=== PATIENT | male | born 1940 | race Caucasian/White ===

== ENCOUNTER 2019-11-26 14:05 | Emergency (ER) | payer MEDICARE ==
[2019-11-26] MEDS ORDERED: solu-MEDROL 125 MG IV ONE (14:23)
[2019-11-26] MEDS ORDERED: DUONEB 0.5-3 MG/3 ml Neb IH ONE ×2 (14:25→14:38)
[2019-11-26] MEDS ORDERED: solu-MEDROL 125 MG ONE (14:32)
[2019-11-26 14:37] LABS: Absolute Neutrophil Ct (ANC) 3.89 (1.4-6.9); BASOPHIL % 0.6 % (0.0-0.4); Basophil (Absolute #) 0.03 (0-0.4); Eosinophil % 0.6 % (0.00-5.0); Eosinophil (Absolute #) 0.03 (0-0.5); Hematocrit 31.9 % (42-50); Hemoglobin 9.6 gm/dl (12.5-18.0); Lymphocyte (Absolute #) 0.68 (1.0-4.6); Lymphocytes % 12.7 % (24.0-44.0); Mean Cell Volume 87.9 fl (78-100); Mean Corpuscular Hemoglobin 26.4 pg (26-32); Mean Corpuscular Hgb Concent. 30.1 g/dl (32-36); Mean Platelet Volume 11.2 fl (7.5-11.0); Monocyte (Absolute #) 0.72 (0.0-1.3); Monocytes % 13.5 % (0.0-12.0); Neutrophil % 72.6 % (36.0-66.0); Platelet Count 90 K/mm3 (150-450); Red Blood Count 3.63 M/mm3 (4.1-5.6); Red Cell Distribution Width 14.3 % (11.5-14.0); White Blood Count 5.4 K/mm3 (4.0-10.5)
[2019-11-26 14:52] LABS: ALBUMIN 4.5 g/dL (3.5-5.0); ANION GAP 11.6 MEQ/L (5-15); BILIRUBIN,TOTAL 1.4 mg/dL (0.2-1.3); Calcium 8.8 mg/dL (8.4-10.2); Creatinine 1 1.52 mg/dL (0.66-1.25); MAGNESIUM 1.8 mg/dL (1.6-2.3); Potassium 3.7 mmol/L (3.5-5.1); Total Protein 8.3 g/dL (6.3-8.2)
[2019-11-26 14:59] LABS: INR 2.92 (0.8-3.0); PROTIME 33.7 SECONDS (8.83-12.87)
[2019-11-26 15:01] LABS: PTT 35.7 SECONDS (24.1-36.1)
[2019-11-26 15:41] LABS: Slide Review 1 YES
[2019-11-26] MEDS ORDERED: Lasix 40 MG/4 ML IV ONE (16:02)
[2019-11-26] MEDS ORDERED: Lasix 40 MG/4 ML ONE (16:13)
[2019-11-26 16:14] VITALS: BP 136/69
--- NOTE | 2019-11-26 16:18 | ERPHSYRPT ---
- History of Present Illness Time Seen by Provider: 11/26/19 14:45 Source: patient Exam Limitations: no limitations Patient Subjective Stated Complaint: "im just sob and have been for a few days, I have copd, Triage Nursing Assessment: AAox3, labored resp, c/o shortness of breath, feeling bloated in abdomen. Denies chest pain, states hides soaker is dr Alonso , pt had plastic heart valve in in 1998. H/o copd. Had svn treatments prior to arrival per ems. Physician History: Patient is a 79-year-old male presents to our ED with complaints of progressive shortness of breath over the past several days. No chest pain. Patient admits to history of a "plastic heart valve" implanted in 1998. He also has a history of COPD. Patient states that his shortness of breath may be related to COPD. Receive nebulizer treatment at home. Symptoms improved but not resolved. Patient appears tachypneic and in mild respiratory distress. Patient tachycardic at rest. Timing/Duration: day(s) (Progressive shortness of breath over the past 3 days.) Activities at Onset: activity Severity of Dyspnea-Max: moderate Severity of Dyspnea-Current: moderate Possible Cause: no prior episodes Modifying Factors: Improves With: exertion Associated Symptoms: cough, edema Allergies/Adverse Reactions: No Known Drug Allergies Allergy (Verified 11/26/19 16:44) Home Medications: Cetirizine HCl [Zyrtec] 10 mg PO DAILY 02/15/16 [History] Furosemide 20 mg [Lasix 20 mg] 20 mg PO DAILY 02/15/16 [History] Losartan Potassium [Cozaar] 100 mg PO DAILY 02/15/16 [History] Pravastatin Sodium [Pravachol] 20 mg PO HS 02/15/16 [History] Warfarin Sodium 5 mg [Coumadin 5 MG] 5 mg PO HS 02/15/16 [History] Montelukast Sodium 10 mg [Singulair 10 MG] 10 mg PO DAILY 11/26/19 [History] Hx Tetanus, Diphtheria Vaccination/Date Given: No Hx Influenza Vaccination/Date Given: Yes Hx Pneumococcal Vaccination/Date Given: No - Review of Systems Constitutional: No Fever, No Chills Eyes: No Symptoms Ears, Nose, & Throat: No Symptoms Respiratory: Cough, Dyspnea Cardiac: Edema, No Chest Pain, No Syncope Abdominal/Gastrointestinal: No Symptoms, No Abdominal Pain, No Nausea, No Vomiting, No Diarrhea Genitourinary Symptoms: No Symptoms, No Dysuria Musculoskeletal: No Symptoms, No Back Pain, No Neck Pain Skin: No Symptoms, No Rash Neurological: No Symptoms, No Dizziness, No Focal Weakness, No Sensory Changes Psychological: No Symptoms Endocrine: No Symptoms All Other Systems: Reviewed and Negative - Past Medical History Pertinent Past Medical History: Yes Neurological History: No Pertinent History ENT History: No Pertinent History Cardiac History: Arrhythmia, High Cholesterol, Hypertension, Other Respiratory History: No Pertinent History Endocrine Medical History: No Pertinent History Musculoskeletal History: No Pertinent History GI Medical History: No Pertinent History History: No Pertinent History Psycho-Social History: No Pertinent History Male Reproductive Disorders: No Pertinent History Other Medical History: 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 - Past Surgical History Past Surgical History: Yes Neuro Surgical History: No Pertinent History Cardiac: Valve Replacement Respiratory: No Pertinent History Gastrointestinal: No Pertinent History Genitourinary: No Pertinent History Musculoskeletal: No Pertinent History Male Surgical History: No Pertinent History - Social History Smoking Status: Never smoker Exposure to second hand smoke: No Drug Use: none Patient Lives Alone: Yes - Nursing Vital Signs Nursing Vital Signs: Initial Vital Signs Temperature 98.6 F 11/26/19 14:32 Pulse Rate 118 H 11/26/19 14:32 Respiratory Rate 21 11/26/19 14:32 Blood Pressure 148/94 11/26/19 14:32 O2 Sat by Pulse Oximetry 98 11/26/19 14:32 Pain Scale Pain Intensity 0 - Physical Exam General Appearance: no apparent distress, alert Eye Exam: PERRL/EOMI Neck Exam: normal inspection, supple Respiratory Exam: respiratory distress, diminished breath sounds, accessory muscle use, crackles/rales Cardiovascular/Chest Exam: normal heart sounds, regular rate/rhythm Abdominal/Gastrointestinal Exam: soft, No tenderness, No distention, No mass Extremity Exam: non-tender, normal range of motion, normal inspection, no calf tenderness, No no pedal edema (2+ bilateral lower extremity pitting edema.) Neurologic Exam: alert, oriented x 3, cooperative, principal clerk typist II-XII nml as tested, sensation nml, No motor deficits Skin Exam: normal color, warm, No dry SpO2 Interpretation: normal SpO2: 97 O2 Delivery: Room Air Ordered Tests: Active Orders 24 hr Category Date Time Status Screen Print Operator STAT Care 11/26/19 14:20 Active EKG-ER Only STAT Care 11/26/19 14:19 Active IV Insertion STAT Care 11/26/19 14:19 Active IV Insertion-2nd Peripheral STAT Care 11/26/19 14:39 Active Oxygen-ED Only Nasal Cannula 4 lpm Care 11/26/19 14:19 Active CHEST 1 VIEW (PORTABLE) Stat Exams 11/26/19 14:46 Taken CBC W DIFF Stat Lab 11/26/19 14:31 Completed CMP Stat Lab 11/26/19 14:31 Completed D-DIMER QUANTITATIVE Stat Lab 11/26/19 14:31 Completed MAGNESIUM Stat Lab 11/26/19 14:31 Completed NT PRO BNP Stat Lab 11/26/19 14:31 Completed PROTIME WITH INR Stat Lab 11/26/19 14:31 Completed PTT Stat Lab 11/26/19 14:31 Completed TROPONIN Q3H Lab 11/26/19 14:31 Completed TROPONIN Q3H Lab 11/26/19 17:30 Ordered TROPONIN Q3H Lab 11/26/19 20:30 Ordered TROPONIN Q3H Lab 11/26/19 23:30 Ordered TROPONIN Q3H Lab 11/27/19 02:30 Ordered Peak Expiratory Flow Rate ONCE RT 11/26/19 14:42 Active Respiratory Therapy Assessment ONCE RT 11/26/19 14:42 Active Medication Summary Discontinued Medications Generic Name Dose Route Start Last Admin Trade Name Freq PRN Reason Stop Dose Admin Albuterol/Ipratropium 3 ml 11/26/19 14:25 11/26/19 14:45 Duoneb 0.5-3 Mg/3 Ml Neb IH 11/26/19 14:26 3 ml STAT ONE Administration Albuterol/Ipratropium Confirm 11/26/19 14:38 Duoneb 0.5-3 Mg/3 Ml Neb Administered 11/26/19 14:39 Dose 3 ml IH .STK-MED ONE Furosemide 40 mg 11/26/19 16:02 11/26/19 16:15 Lasix 40 Mg/4 Ml IV 11/26/19 16:03 40 mg STAT ONE Administration Furosemide Confirm 11/26/19 16:13 Lasix 40 Mg/4 Ml Administered 11/26/19 16:14 Dose 40 mg .ROUTE .STK-MED ONE Methylprednisolone Sodium Succinate 125 mg 11/26/19 14:23 11/26/19 14:33 Solu-Medrol 125 Mg IV 11/26/19 14:24 125 mg STAT ONE Administration Methylprednisolone Sodium Succinate Confirm 11/26/19 14:32 Solu-Medrol 125 Mg Administered 11/26/19 14:33 Dose 125 mg .ROUTE .STK-MED ONE Lab/Rad Data: Laboratory Result Diagrams 11/26/19 14:31 11/26/19 14:31 Laboratory Results 11/26/19 11/26/19 11/26/19 Range/Units 14:31 14:31 14:31 WBC (4.0-10.5) K/mm3 RBC (4.1-5.6) M/mm3 Hgb (12.5-18.0) gm/dl Hct (42-50) % MCV (78-100) fl MCH (26-32) pg MCHC (32-36) g/dl RDW (11.5-14.0) % Plt Count (150-450) K/mm3 MPV (7.5-11.0) fl Gran % (36.0-66.0) % Eos # (Auto) (0-0.5) Absolute Lymphs (auto) (1.0-4.6) Absolute Monos (auto) (0.0-1.3) Lymphocytes % (24.0-44.0) % Monocytes % (0.0-12.0) % Eosinophils % (0.00-5.0) % Basophils % (0.0-0.4) % Absolute Granulocytes (1.4-6.9) Basophils # (0-0.4) PT 33.7 H (8.83-12.87) SECONDS INR 2.92 (0.8-3.0) APTT 35.7 (24.1-36.1) SECONDS D-Dimer 312 (215-500) ng/mL Sodium 139 (137-145) mmol/L Potassium 3.7 (3.5-5.1) mmol/L Chloride 101 (98-107) mmol/L Carbon Dioxide 30 (22-30) mmol/L Anion Gap 11.6 (5-15) MEQ/L BUN 17 (9-20) mg/dL Creatinine 1.52 H (0.66-1.25) mg/dL Estimated GFR 47.5 ML/MIN Glucose 138 H (74-106) mg/dL Calcium 8.8 (8.4-10.2) mg/dL Magnesium 1.8 (1.6-2.3) mg/dL Total Bilirubin 1.40 H (0.2-1.3) mg/dL AST 33 (17-59) U/L ALT 17 (0-50) U/L Alkaline Phosphatase 102 (38-126) U/L Troponin I 0.025 (0.000-0.034) ng/mL NT-Pro-B Natriuret Pep 5990 H (0-1800) pg/mL Serum Total Protein 8.3 H (6.3-8.2) g/dL Albumin 4.5 (3.5-5.0) g/dL Slides for Path Review 11/26/19 Range/Units 14:31 WBC 5.4 (4.0-10.5) K/mm3 RBC 3.63 L (4.1-5.6) M/mm3 Hgb 9.6 L (12.5-18.0) gm/dl Hct 31.9 L (42-50) % MCV 87.9 (78-100) fl MCH 26.4 (26-32) pg MCHC 30.1 L (32-36) g/dl RDW 14.3 H (11.5-14.0) % Plt Count 90 L (150-450) K/mm3 MPV 11.2 H (7.5-11.0) fl Gran % 72.6 H (36.0-66.0) % Eos # (Auto) 0.03 (0-0.5) Absolute Lymphs (auto) 0.68 L (1.0-4.6) Absolute Monos (auto) 0.72 (0.0-1.3) Lymphocytes % 12.7 L (24.0-44.0) % Monocytes % 13.5 H (0.0-12.0) % Eosinophils % 0.6 (0.00-5.0) % Basophils % 0.6 (0.0-0.4) % Absolute Granulocytes 3.89 (1.4-6.9) Basophils # 0.03 (0-0.4) PT (8.83-12.87) SECONDS INR (0.8-3.0) APTT (24.1-36.1) SECONDS D-Dimer (215-500) ng/mL Sodium (137-145) mmol/L Potassium (3.5-5.1) mmol/L Chloride (98-107) mmol/L Carbon Dioxide (22-30) mmol/L Anion Gap (5-15) MEQ/L BUN (9-20) mg/dL Creatinine (0.66-1.25) mg/dL Estimated GFR ML/MIN Glucose (74-106) mg/dL Calcium (8.4-10.2) mg/dL Magnesium (1.6-2.3) mg/dL Total Bilirubin (0.2-1.3) mg/dL AST (17-59) U/L ALT (0-50) U/L Alkaline Phosphatase (38-126) U/L Troponin I (0.000-0.034) ng/mL NT-Pro-B Natriuret Pep (0-1800) pg/mL Serum Total Protein (6.3-8.2) g/dL Albumin (3.5-5.0) g/dL Slides for Path Review YES - Progress Progress: improved Air Movement: fair Progress Note: 11/26/19 16:38 Patient reassessed. Tachypnea resolved. Patient has CHF. BNP is 5990. Lasix administered. Case discussed with Dr. Dietz after detailed discussion we decided to transfer patient to higher level of care patient will be transferred to [facility]. Plan of care discussed with patient. He agrees to transfer to [facility] for further evaluation and treatment. Discussed with : Carmelina Will see patient in: other Counseled pt/family regarding: lab results, diagnosis, rad results - Departure Departure Disposition: Transfer Clinical Impression: CHF (congestive heart failure), SOB (shortness of breath), Respiratory distress , Atrial fibrillation Condition: Stable Critical Care Time: Yes Critical Care Time(excluding separately billable procedures): Critical 75-104 mins Referrals: SKYLAR BLEVINS MD [Primary Care Provider] - Instructions: Heart Failure
[2019-11-26 17:03] VITALS: PULSE 92
[2019-11-26 17:14] VITALS: O2SAT 97
--- NOTE | 2019-11-26 21:28 | XRAY ---
Indication: Cough. Short of breath. Comparison: None Portable chest demonstrates cardiomegaly with cardiac valve replacement surgery. Mild vascular prominence without focal infiltrate, consolidation, or large effusion. Bony thorax intact with mild spinal degenerative changes and sternotomy wires. Impression: Cardiomegaly with mild vascular prominence. Negative for acute pneumonic process or CHF.
== END 2019-11-26 17:21 | disposition short-term general hospital (02) ==
LOC: ED 14:05
DX: I50.9 Heart failure, unspecified (principal); R06.02 Shortness of breath; R06.00 Dyspnea, unspecified; I48.91 Unspecified atrial fibrillation; Z79.01 Long term (current) use of anticoagulants; I10 Essential (primary) hypertension; J44.9 Chronic obstructive pulmonary disease, unspecified; E78.00 Pure hypercholesterolemia, unspecified; Z79.899 Other long term (current) drug therapy
CPT/HCPCS: 36000; 36415; 71045; 80053; 83735; 83880; 84484; 85025; 85379; 85610; 85730; 93005; 93041; 94150; 94640; 96374; 96375; 99285; 99291; 99292; J1940; J2930; A9270-GY

== ENCOUNTER 2020-07-16 09:55 | Inpatient (IN) | payer MEDICARE ==
--- NOTE | 2020-07-16 10:41 | PCM.HP.ADD ---
Addendum to History & Physical - History & Physical Addendum Addendum to History & Physical: This certifies that the History & Physical in the electronic chart reflects the current health status of the patient. If there are changes in the H&P these changes/exceptions are listed as follows.
--- NOTE | 2020-07-16 11:33 | XRAY ---
Indication: Cough. CHF. Comparison: March 16, 2020. PA/lateral chest again hyperinflated without focal infiltrate, consolidation, or large effusion. Heart remains enlarged again with mitral valve replacement surgery. Bony thorax intact again with mild degenerative changes. No new/acute findings. Impression: Continued nonacute chest with chronic features.
[2020-07-16 11:35] LABS: Hematocrit 27.5 % (42-50); Mean Cell Volume 78.6 fl (78-100); Mean Corpuscular Hemoglobin 22.9 pg (26-32); Mean Corpuscular Hgb Concent. 29.1 g/dl (32-36); Mean Platelet Volume 10.8 fl (7.5-11.0); Platelet Count 138 K/mm3 (150-450); Red Cell Distribution Width 18.3 % (11.5-14.0); White Blood Count 7.2 K/mm3 (4.0-10.5)
[2020-07-16 11:56] LABS: ANION GAP 11.3 MEQ/L (5-15); Creatinine 1 1.96 mg/dL (0.66-1.25); EST GLOMERULAR FILTRATION RATE 35.3 ML/MIN; Potassium 4.8 mmol/L (3.5-5.1); TROPONIN 0.016 ng/mL (0.000-0.034)
[2020-07-16] MEDS: BUMEX 1 MG IV SCH ×2 (12:25→17:27)
[2020-07-16] MEDS: Toprol Xl 50 MG PO SCH (12:25)
[2020-07-16] MEDS: Cozaar 50 MG PO SCH (12:25)
[2020-07-16] MEDS ORDERED: DUONEB 0.5-3 MG/3 ml Neb IH ONE (14:05)
--- NOTE | 2020-07-16 14:05 | CONS ---
CONSULT DATE: 07/16/2020 HISTORY: This is a 80 year old male with known history of mitral valve replacement from 1998 who was seen because of shortness of breath. The patient has been chronically short of breath and had been admitted to [facility] some time in November for the same problem. The symptoms seems to be worse over the last few days associated with productive cough and states that he has occasional low grade fever. He denies any chest pains. He also complained of peripheral edema. The patient is known to have mitral valve replacement utilizing a [employer] which was done in 1998. He has underlying atrial fibrillation which is permanent and is fairly anticoagulated with warfarin. He has never had any myocardial infarction. He has had history of congestive heart failure in the past. He has an underlying left ventricular systolic dysfunction. CARDIAC RISK FACTORS: Negative for diabetes. Positive for hypertension. No known hyperlipidemia. He has a remote history of smoking. MEDICATIONS: His medications include Symbicort, Bumex, losartan, metoprolol, Pravastatin, Coumadin. REVIEW OF SYSTEMS: HARDWOOD FLOOR REFINISHER: No history of stroke or seizures. RESPIRATORY: He has chronic obstructive lung disease with history of exacerbation. GI: Nausea. No vomiting. He has no abdominal pain. : History of renal failure. PERIPHERAL VASCULAR: No history of DVT or claudication. He has intermittent peripheral edema. HEMATOLOGY: No history of bleeding. ENDOCRINE: No thyroid disorder. SOCIAL HISTORY: He is . He is regularly checked up by his ex-. PHYSICAL EXAMINATION: Blood pressure 140/70 with heart rate 80, respirations about 20. GENERAL: The patient is an elderly male who is alert, oriented, who gets short of breath even with just plain conversation and has audible wheezing. NECK: No obvious JVD. CHEST: There is scattered wheezing on both lung perkins. There is a well healed sternotomy scar. CARDIAC: Heart tones are variable. The rhythm is atrial fibrillation with audible mitral prosthetic click. ABDOMEN: Soft with normal bowel sounds. EXTREMITIES: There is bilateral leg edema. ASSESSMENT AND PLAN: 1) The shortness of breath is probably multi-factorial. I suspect it is a combination of chronic obstructive pulmonary disease and also some acute on chronic systolic heart failure. I agree with IV diuretics as he appears to be volume overloaded with signs of peripheral edema. Continue with beta blockers. 2) Chronic atrial fibrillation. Goal of treatment is heart rate control and anticoagulation. 3) Hypertension. 4) Chronic obstructive lung disease.
[2020-07-16] MEDS: DUONEB 0.5-3 MG/3 ml Neb IH SCH ×3 (14:12→23:25)
[2020-07-16] MEDS: PATIENT OWN MEDICATION IH SCH (14:15)
[2020-07-16] MEDS: ZOCOR 20MG PO SCH (21:06)
[2020-07-16] MEDS: Tessalon Perles 100 MG PO PRN (21:13)
[2020-07-16] MEDS ORDERED: NON-FORMULARY ITEM (Pravastatin Sodium [Pravachol] 20 MG) PO SCH (22:00)
[2020-07-16] MEDS ORDERED: NON-FORMULARY ITEM (Budesonide/Formoterol Fumarate [Symbicort 160-4.5 Mcg Inhaler] 2 PUFFS IH SCH (22:00)
[2020-07-17] MEDS: DUONEB 0.5-3 MG/3 ml Neb IH SCH ×6 (02:43→23:22)
[2020-07-17] MEDS: Tessalon Perles 100 MG PO PRN ×2 (03:03→22:21)
[2020-07-17] MEDS: BUMEX 1 MG IV SCH ×2 (03:04→17:01)
[2020-07-17 06:06] LABS: PROTIME 95.1 SECONDS (8.83-12.87)
[2020-07-17 06:08] LABS: INR 8.35 (0.8-3.0)
[2020-07-17] MEDS: PATIENT OWN MEDICATION IH SCH ×2 (06:52→19:38)
[2020-07-17] MEDS: Toprol Xl 50 MG PO SCH (09:17)
[2020-07-17] MEDS: Cozaar 50 MG PO SCH (09:17)
[2020-07-17] MEDS ORDERED: NON-FORMULARY ITEM (Losartan Potassium [Cozaar] 100 MG) PO SCH (10:00)
[2020-07-17] MEDS: ZOCOR 20MG PO SCH (22:19)
--- NOTE | 2020-07-17 22:19 | PCM.NOTE ---
Date and Time: 07/17/202216 Subjective Assessment: still very short of breath. has off and on cough - Review of Systems Constitutional: No Fever, No Chills Eyes: No Symptoms Ears, Nose, & Throat: No Symptoms Respiratory: Cough, Orthopnea, Short Of Breath Cardiac: Orthopnea, PND, No Chest Pain, No Edema, No Syncope Abdominal/Gastrointestinal: No Abdominal Pain, No Nausea, No Vomiting, No Tawana rrhea Genitourinary Symptoms: No Dysuria Musculoskeletal: No Back Pain, No Neck Pain Skin: No Rash Neurological: No Dizziness, No Focal Weakness, No Sensory Changes Psychological: No Symptoms Endocrine: No Symptoms Hematologic/Lymphatic: No Symptoms Immunological/Allergic: No Symptoms Objective Exam General Appearance: mild distress, alert Neurologic Exam: alert, oriented x 3, cooperative, normal mood/affect, sensation nml, No motor deficits Skin Exam: normal color, warm, dry Eye Exam: PERRL, EOMI, eyes nml inspection Ears, Nose, Throat Exam: normal ENT inspection, pharynx normal, moist mucous membranes Neck Exam: normal inspection, non-tender, supple, full range of motion Respiratory Exam: rhonchi, No respiratory distress Cardiovascular Exam: regular rate/rhythm, normal heart sounds Gastrointestinal/Abdomen Exam: soft, No tenderness, No mass Extremity Exam: normal inspection, normal range of motion Back Exam: normal inspection, normal range of motion, No CVA tenderness, No vertebral tenderness Male Genitalia Exam: deferred Rectal Exam: deferred OBJECTIVE DATA Vital Signs: Vital Signs - 24 hr Temp Pulse Resp BP Pulse Ox 07/17/20 19:37 97.9 F 75 21 116/58 97 07/17/20 19:32 80 22 92 L 07/17/20 15:37 98.2 F 72 20 126/62 97 07/17/20 15:08 78 28 H 92 L 07/17/20 12:00 98.6 F 75 18 120/59 96 07/17/20 10:37 78 26 H 95 07/17/20 06:59 98.9 F 76 18 130/60 93 L 07/17/20 06:55 72 22 93 L 07/17/20 03:52 98.6 F 72 20 113/58 94 L 07/17/20 02:43 72 20 94 L 07/16/20 23:39 98.4 F 95 H 18 121/67 95 07/16/20 23:33 98 07/16/20 23:27 73 20 94 L Pain Assessment - Last Documented Pain Intensity 0 Intake and Output: Intake & Output 07/15/20 07/16/20 07/17/20 07/18/20 11:59 11:59 11:59 11:59 Intake Total 1440 720 Output Total 2125 1650 Balance -685 -930 Weight 104 kg 102.6 kg Lab Results: Lab Results-Last 24 Hours 07/17/20 Range/Units 05:02 PT 95.1 H (8.83-12.87) SECONDS INR 8.35 H* (0.8-3.0) Radiology Exams: Radiology Procedures Category Date Time Status CHEST 2 VIEWS (PA AND LAT) Stat Exams 07/16/20 10:36 Completed ECHO W/2D AND DOPPLER [US] Routine Exams 07/16/20 10:34 Taken Assessment/Plan (1) CHF (congestive heart failure) Current Visit: Yes Status: Acute Qualifiers: Heart failure type: combined systolic and diastolic Heart failure chronicity: acute on chronic Qualified Code(s): I50.43 - Acute on chronic combined systolic (congestive) and diastolic (congestive) heart failure Assessment & Plan: Chief Complaint Diagnosis CHF, Renal Insufficiency Allergies Allergy/AdvReac Type Severity Reaction Status Date / Time No Known Drug Allergies Allergy Verified 11/26/19 16:44 Vital Signs (Last 24 hours) Temp Pulse Resp BP Pulse Ox 07/17/20 19:37 97.9 F 75 21 116/58 97 07/17/20 19:32 80 22 92 L 07/17/20 15:37 98.2 F 72 20 126/62 97 07/17/20 15:08 78 28 H 92 L 07/17/20 12:00 98.6 F 75 18 120/59 96 07/17/20 10:37 78 26 H 95 07/17/20 06:59 98.9 F 76 18 130/60 93 L 07/17/20 06:55 72 22 93 L 07/17/20 03:52 98.6 F 72 20 113/58 94 L 07/17/20 02:43 72 20 94 L 07/16/20 23:39 98.4 F 95 H 18 121/67 95 07/16/20 23:33 98 07/16/20 23:27 73 20 94 L Home Medications Medication Instructions Recorded Confirmed Last Taken Type Budesonide/Formoterol Fumarate 2 puffs IH BID 07/16/20 07/16/20 07/16/20 08:00 History [Symbicort 160-4.5 Mcg Inhaler] Bumetanide 0.5 mg PO DAILY 07/16/20 07/16/20 07/15/20 08:00 History Current Medications Generic Name Dose Route Start Last Admin Trade Name Freq PRN Reason Stop Dose Admin Albuterol/Ipratropium 3 ml 07/16/20 15:00 07/17/20 19:32 Duoneb 0.5-3 Mg/3 Ml Neb IH 08/15/20 14:59 3 ml Q4HRT TREVOR Administration Benzonatate 100 mg 07/16/20 21:11 07/17/20 03:03 Tessalon Perles 100 Mg PO 08/15/20 21:10 100 mg Q4H PRN PRN Administration COUGH Bumetanide 1 mg 07/16/20 11:00 07/17/20 17:01 Bumex 1 Mg IV 08/15/20 10:59 1 mg BID DIURETIC TREVOR Administration Losartan Potassium 100 mg 07/16/20 11:45 07/17/20 09:17 Cozaar 50 Mg PO 08/15/20 11:44 100 mg DAILY TREVOR Administration Metoprolol Succinate 50 mg 07/16/20 11:45 07/17/20 09:17 Toprol Xl 50 Mg PO 08/15/20 11:44 50 mg DAILY TREVOR Administration Patient Own Med ( 0 each 07/16/20 19:00 07/17/20 19:38 Symbicort) IH 08/15/20 18:59 2 each BIDRT TREVOR Administration Simvastatin 20 mg 07/16/20 22:00 07/16/20 21:06 Zocor 20mg PO 08/15/20 21:59 20 mg HS TREVOR Administration Discontinued Medications Generic Name Dose Route Start Last Admin Trade Name Freq PRN Reason Stop Dose Admin Albuterol/Ipratropium Confirm 07/16/20 14:05 Duoneb 0.5-3 Mg/3 Ml Neb Administered 07/16/20 14:06 Dose 3 ml IH .STK-MED ONE Intake & Output (Last 24 hours) 07/15/20 07/16/20 07/17/20 07/18/20 11:59 11:59 11:59 11:59 Intake Total 7220 353 Output Total 7317 1912 Balance -685 -930 Weight 104 kg 102.6 kg Laboratory Results (Last 24 hours) 07/17/20 05:02 PT 95.1 H INR 8.35 H* Orders (Last 24 hours) Category Date Time Status PT INR [PROTIME WITH INR] Routine Lab 07/17/20 05:02 Completed Simvastatin 20Mg [Zocor 20Mg] Med 07/16/20 22:00 Active 20 mg PO HS Peak Expiratory Flow Rate ONCE RT 07/17/20 07:00 Active Patient Care Notes (Last 24 hours) 07/17/20 09:38 Nursing Note by Melody Enriquez Pt complaining of his lower legs and feet itching x 3weeks. This nurse applied lotion on right leg and protective ointment left. Plan to see which works best to alleviate itching and continue with it. Pt denies any burning or pain after application. Will continue to monitor for effectiveness. Initialized on 07/17/20 09:38 - END OF NOTE 07/17/20 06:41 Nursing Note by Brittany Bedoya Dr. notified of INR level. Coumadin on hold. Addendum entered by Brittany Bedoya RN 07/17/20 06:44: Dr. Castro also notified of 1000 dose of Bumex given early at 0310 due to SOB. No New orders. Initialized on 07/17/20 06:41 - END OF NOTE 07/17/20 06:11 Nursing Note by Brittany Bedoya Pt has a critical INR this a.mJoe Borrero RN has attempted to call Dr. Castro on all of his available phone numbers twice and has left one voice message. Initialized on 07/17/20 06:11 - END OF NOTE 07/17/20 05:00 (created 07/17/20 06:48) Nursing Note by Brittany Bedoya Pt resting in bed, breathing much easier at this time. 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 Pt has been coughing and had gotten up to use the urinal when his SOB increased. Pt was given a breathing treatment without much relief. This nurse gave patient a tessalon perles 100mg for cough and gave IV Bumex 1mg that was scheduled for 1000 early at this time. Initialized on 07/17/20 06:45 - END OF NOTE Code(s): I50.9 - HEART FAILURE, UNSPECIFIED (2) Atrial fibrillation Current Visit: Yes Status: Chronic Qualifiers: Atrial fibrillation type: paroxysmal Qualified Code(s): I48.0 - Paroxysmal atrial fibrillation Code(s): I48.91 - UNSPECIFIED ATRIAL FIBRILLATION (3) Hypertension Current Visit: No Status: Acute Qualifiers: Hypertension type: essential hypertension Qualified Code(s): I10 - Essential (primary) hypertension Code(s): I10 - ESSENTIAL (PRIMARY) HYPERTENSION (4) Warfarin anticoagulation Current Visit: No Status: Acute Code(s): Z79.01 - CUSTODIAL (CURRENT) USE OF ANTICOAGULANTS
[2020-07-18] MEDS: DUONEB 0.5-3 MG/3 ml Neb IH SCH ×6 (02:30→22:36)
[2020-07-18] MEDS: PATIENT OWN MEDICATION IH SCH ×2 (06:27→18:37)
[2020-07-18] MEDS: BUMEX 1 MG IV SCH ×2 (09:05→16:36)
[2020-07-18] MEDS: Toprol Xl 50 MG PO SCH (09:05)
[2020-07-18] MEDS: Cozaar 50 MG PO SCH (09:05)
[2020-07-18 09:13] LABS: INR 4.6 (0.8-3.0); PROTIME 52.8 SECONDS (8.83-12.87)
--- NOTE | 2020-07-18 10:13 | ECHO ---
Transthoracic echocardiographic examination and color Doppler was done on 07/16/2020. INDICATION: Congestive heart failure, status post previous mitral valve replacement. IMPRESSION: 1) GLOBAL LEFT VENTRICULAR HYPOKINESIA. EJECTION FRACTION BETWEEN 30-35%. 2) MODERATE TO SEVERE TRICUSPID REGURGITATION. RIGHT VENTRICULAR SYSTOLIC PRESSURE OF 73 MM OF MERCURY SUGGESTIVE OF MODERATE TO SEVERE PULMONARY HYPERTENSION. 3) PROSTHETIC MITRAL VALVE. 4) MODERATE TO SEVERELY DILATED RIGHT SIDE CHAMBERS. 5) LEFT ATRIAL ENLARGEMENT. 6) DILATED INFERIOR VENA CAVA. The left ventricle is partially visualized but demonstrated a global type of hypokinesia with left ventricular ejection fraction of about 30-35%. The left ventricular thickness appears to be normal. The mitral valve is prosthetic but this is not well visualized. There is no significant regurgitation seen. The left atrium is moderately enlarged. The aortic valve is sclerotic with no aortic regurgitation seen. There is no significant gradient across the left ventricular outflow tract. The right side chambers are moderately to severely dilated. There is moderate to severe tricuspid regurgitation with right ventricular systolic pressure of 73 mm of Mercury suggestive of moderate to severe pulmonary hypertension. The inferior vena cava is dilated.
--- NOTE | 2020-07-18 11:43 | PCM.NOTE ---
Date and Time: 07/18/20 1143 Subjective Assessment: doing better. - Review of Systems Constitutional: No Fever, No Chills Eyes: No Symptoms Ears, Nose, & Throat: No Symptoms Respiratory: No Cough, No Short Of Breath Cardiac: No Chest Pain, No Edema, No Syncope Abdominal/Gastrointestinal: No Abdominal Pain, No Nausea, No Vomiting, No Diarrhea Genitourinary Symptoms: No Dysuria Musculoskeletal: No Back Pain, No Neck Pain Skin: No Rash Neurological: No Dizziness, No Focal Weakness, No Sensory Changes Psychological: No Symptoms Endocrine: No Symptoms Hematologic/Lymphatic: No Symptoms Immunological/Allergic: No Symptoms Objective Exam General Appearance: no apparent distress, alert Neurologic Exam: alert, oriented x 3, cooperative, normal mood/affect, nml cerebellar function, sensation nml, No motor deficits Skin Exam: normal color, warm, dry Eye Exam: PERRL, EOMI, eyes nml inspection Ears, Nose, Throat Exam: normal ENT inspection, pharynx normal, moist mucous membranes Neck Exam: normal inspection, non-tender, supple, full range of motion Respiratory Exam: normal breath sounds, lungs clear, No respiratory distress Cardiovascular Exam: regular rate/rhythm, normal heart sounds Gastrointestinal/Abdomen Exam: soft, No tenderness, No mass Extremity Exam: normal inspection, normal range of motion Back Exam: normal inspection, normal range of motion, No CVA tenderness, No vertebral tenderness Male Genitalia Exam: deferred Rectal Exam: deferred OBJECTIVE DATA Vital Signs: Vital Signs - 24 hr Temp Pulse Resp BP Pulse Ox 07/18/20 11:36 97.8 F 72 24 106/51 94 L 07/18/20 10:19 89 22 91 L 07/18/20 07:07 98.2 F 89 22 123/55 91 L 07/18/20 06:30 79 24 92 L 07/18/20 03:51 98.2 F 98 H 22 110/69 94 L 07/18/20 02:30 88 20 92 L 07/17/20 23:49 98.1 F 71 20 115/53 94 L 07/17/20 23:22 71 20 94 L 07/17/20 19:37 97.9 F 75 21 116/58 97 07/17/20 19:32 80 22 92 L 07/17/20 15:37 98.2 F 72 20 126/62 97 07/17/20 15:08 78 28 H 92 L 07/17/20 12:00 98.6 F 75 18 120/59 96 Pain Assessment - Last Documented Pain Intensity 0 Intake and Output: Intake & Output 07/15/20 07/16/20 07/17/20 07/18/20 11:59 11:59 11:59 11:59 Intake Total 1440 2020 Output Total 2125 2350 Balance -685 -330 Weight 104 kg 102.6 kg 101.9 kg Lab Results: Lab Results-Last 24 Hours 07/18/20 Range/Units 08:57 PT 52.8 H (8.83-12.87) SECONDS INR 4.60 H D (0.8-3.0) Multi-Disciplinary Progress Notes: Multi-Disciplinary Progress Notes 07/18/20 09:51 Case Management Note by Anca Flores PATIENT CONTINUES TO DENY ANY NEEDS REGARDING DC AT THIS TIME. HE CONTINUES TO PLAN TO RETURN HOME TO PRIOR LEVEL OF FUNCTIONING Initialized on 07/18/20 09:51 - END OF NOTE Assessment/Plan (1) CHF (congestive heart failure) Current Visit: Yes Status: Acute Qualifiers: Heart failure type: combined systolic and diastolic Heart failure chronicity: acute on chronic Qualified Code(s): I50.43 - Acute on chronic combined systolic (congestive) and diastolic (congestive) heart failure Code(s): I50.9 - HEART FAILURE, UNSPECIFIED (2) Atrial fibrillation Current Visit: Yes Status: Chronic Qualifiers: Atrial fibrillation type: paroxysmal Qualified Code(s): I48.0 - Paroxysmal atrial fibrillation Code(s): I48.91 - UNSPECIFIED ATRIAL FIBRILLATION (3) Hypertension Current Visit: No Status: Acute Qualifiers: Hypertension type: essential hypertension Qualified Code(s): I10 - Essential (primary) hypertension Code(s): I10 - ESSENTIAL (PRIMARY) HYPERTENSION (4) Warfarin anticoagulation Current Visit: No Status: Acute Code(s): Z79.01 - SENIOR LIVING (CURRENT) USE OF ANTICOAGULANTS
[2020-07-18] MEDS: ZOCOR 20MG PO SCH (21:38)
[2020-07-19] MEDS: DUONEB 0.5-3 MG/3 ml Neb IH SCH ×3 (02:35→11:18)
[2020-07-19] MEDS: PATIENT OWN MEDICATION IH SCH (06:24)
[2020-07-19 09:09] LABS: INR 3.06 (0.8-3.0)
[2020-07-19] MEDS: Cozaar 50 MG PO SCH (10:17)
[2020-07-19] MEDS: Toprol Xl 50 MG PO SCH (10:17)
[2020-07-19] MEDS: BUMEX 1 MG IV SCH (10:17)
--- NOTE | 2020-07-19 11:50 | PCM.DS ---
Discharge Summary Date of Admission: 07/16/20 13:48 Admitting Physician: SKYLAR BLEVINS Consults: Consults on Case 07/16/20 10:34 Nutritional Consult ROUTINE 07/16/20 10:37 Consult Cardiology ROUTINE Primary Care Provider: SKYLAR BLEVINS Allergies Allergies No Known Drug Allergies Allergy (Verified 11/26/19 16:44) Hospital Summary - Hospital Course Hospital Course: Chief Complaint Diagnosis CHF, Renal Insufficiency, EXAC COPD Allergies Allergy/AdvReac Type Severity Reaction Status Date / Time No Known Drug Allergies Allergy Verified 11/26/19 16:44 Vital Signs (Last 24 hours) Temp Pulse Resp BP Pulse Ox 07/19/20 11:19 72 20 90 L 07/19/20 07:43 98.6 F 69 22 108/56 92 L 07/19/20 06:19 88 20 93 L 07/19/20 03:36 98.1 F 84 21 107/57 98 07/19/20 02:39 92 H 24 97 07/19/20 00:00 98.4 F 69 20 130/69 94 L 07/18/20 22:40 69 20 94 L 07/18/20 19:48 98.3 F 80 24 116/67 96 07/18/20 18:38 80 24 96 07/18/20 16:00 98.3 F 76 26 H 112/59 92 L 07/18/20 14:30 85 26 H 94 L Home Medications Medication Instructions Recorded Confirmed Last Taken Type Budesonide/Formoterol Fumarate 2 puffs IH BID 07/16/20 07/16/20 07/16/20 08:00 History [Symbicort 160-4.5 Mcg Inhaler] Bumetanide 0.5 mg PO DAILY 07/16/20 07/16/20 07/15/20 08:00 History Current Medications Generic Name Dose Route Start Last Admin Trade Name Freq PRN Reason Stop Dose Admin Albuterol/Ipratropium 3 ml 07/16/20 15:00 07/19/20 11:18 Duoneb 0.5-3 Mg/3 Ml Neb IH 08/15/20 14:59 3 ml Q4HRT TREVOR Administration Benzonatate 100 mg 07/16/20 21:11 07/17/20 22:21 Tessalon Perles 100 Mg PO 08/15/20 21:10 100 mg Q4H PRN PRN Administration COUGH Bumetanide 1 mg 07/16/20 11:00 07/19/20 10:17 Bumex 1 Mg IV 08/15/20 10:59 1 mg BID DIURETIC TREVOR Administration Losartan Potassium 100 mg 07/16/20 11:45 07/19/20 10:17 Cozaar 50 Mg PO 08/15/20 11:44 100 mg DAILY TREVOR Administration Metoprolol Succinate 50 mg 07/16/20 11:45 07/19/20 10:17 Toprol Xl 50 Mg PO 08/15/20 11:44 50 mg DAILY TREVOR Administration Patient Own Med ( 0 each 07/16/20 19:00 07/19/20 06:24 Symbicort) IH 08/15/20 18:59 2 each BIDRT TREVOR Administration Simvastatin 20 mg 07/16/20 22:00 07/18/20 21:38 Zocor 20mg PO 08/15/20 21:59 20 mg HS TREVOR Administration Discontinued Medications Generic Name Dose Route Start Last Admin Trade Name Freq PRN Reason Stop Dose Admin Albuterol/Ipratropium Confirm 07/16/20 14:05 Duoneb 0.5-3 Mg/3 Ml Neb Administered 07/16/20 14:06 Dose 3 ml IH .STK-MED ONE Intake & Output (Last 24 hours) 07/16/20 07/17/20 07/18/20 07/19/20 11:59 11:59 11:59 11:59 Intake Total 1440 2020 2100 Output Total 2127 2350 3450 Balance -237 -330 1351 Weight 104 kg 102.6 kg 101.9 kg 102.6 kg Microbiology Results (Last 24 hours) 07/18/20 20:30 Sputum - Expectorant Gram Stain - Pending 07/18/20 20:30 Sputum - Expectorant Sputum Culture - Pending Laboratory Results (Last 24 hours) 07/19/20 08:30 PT 35.0 H INR 3.06 H D Orders (Last 24 hours) Category Date Time Status PT INR [PROTIME WITH INR] Urgent Lab 07/19/20 08:30 Completed Sputum Culture [CULTURE,SPUTUM] Routine Lab 07/18/20 20:30 Received RT Miscellaneous Order ROUTINE RT 07/19/20 11:38 Active Patient Care Notes (Last 24 hours) 07/19/20 11:39 Case Management Note by Anca Flores DR. NOTIFIED PATIENT QUALIFIED FOR HOME OXYGEN AT HS- OVERNIGHT PULSE OX REPORT ON CHART FOR HIM TO VIEW WELL WHEN HE COMES TO SEE PATIENT. HE WOULD PATIENT TO START ON 2L/NC AT HAS AND TO ALSO HAVE AN OUTPT HOME SLEEP STUDY. ORDER ENTERED- WILL SEND OXYGEN ORDER ONCE SIGNED TO [facility] [place] Initialized on 07/19/20 11:39 - END OF NOTE 07/19/20 11:36 Case Management Note by Anca Flores PATIENT CONTINUES TO DENY ANY ADDITIONAL NEEDS REGARDING DC. HE PLANS TO RETURN HOME TO PRIOR LEVEL OF FUNCTIONING. HE WAS EDUCATED THAT HE MAY NEED HOME OXYGEN WHEN HE SLEEPS. HE VERIFIED UNDERSTANDING AND STATED [facility] [place] WAS OKAY TO USE. Initialized on 07/19/20 11:36 - END OF NOTE - Vitals & Intake/Output Vital Signs: Vital Signs Temperature 98.6 F 07/19/20 07:43 Pulse Rate 72 07/19/20 11:19 Respiratory Rate 20 07/19/20 11:19 Blood Pressure 108/56 07/19/20 07:43 O2 Sat by Pulse Oximetry 90 L 07/19/20 11:19 Intake & Output: Intake & Output 07/16/20 07/17/20 07/18/20 07/19/20 11:59 11:59 11:59 11:59 Intake Total 1440 2020 2100 Output Total 2125 2350 3450 Balance -495 330 1350 Weight 104 kg 102.6 kg 101.9 kg 102.6 kg - Lab Result Diagrams: 07/16/20 10:34 07/16/20 10:34 Lab Results-Last 24 Hrs: Lab Results-Last 24 Hours 07/19/20 Range/Units 08:30 PT 35.0 H (8.83-12.87) SECONDS INR 3.06 H D (0.8-3.0) - Procedures and Test Procedures and Tests throughout Hospitalization: Therapy Orders & Screens 07/16/20 10:34 EKG STAT Comment: Diagnosis: CHF Oxygen NASAL CANNULA 2 lpm Comment: Diagnosis: CHF 07/16/20 11:04 RT Screen per Nursing Assess ONCE Comment: Protocol Order Physician Instructions: Greater than 3 points order RT Admission Screen Reason For Exam: Triggered on Admission Diagnosis: CHF Diagnosis: CHF Pneumonia: No Home O2: No Asthma: No CHF: Yes Home CPAP/BIPAP: No Home Nebs/MDI: Yes Total Points: 8 07/16/20 11:14 Respiratory Therapy Assessment DAILY Comment: Diagnosis: CHF 07/16/20 14:48 Respiratory MDI UD Comment: Diagnosis: CHF, Renal Insufficiency 07/17/20 07:00 Peak Expiratory Flow Rate ONCE Comment: Reason For Exam: Diagnosis: CHF, Renal Insufficiency 07/19/20 11:38 RT Miscellaneous Order ROUTINE Comment: Physician Instructions: Reason For Exam: ARRANGE FOR OTPT HOME SLEEP STUDY AFTER DC HOME Diagnosis: CHF, Renal Insufficiency, EXAC COPD Discharge Exam General Appearance: no apparent distress, alert Neurologic Exam: alert, oriented x 3, cooperative, normal mood/affect, nml cerebellar function, sensation nml, No motor deficits Eye Exam: PERRL, EOMI, eyes nml inspection Ears, Nose, Throat Exam: normal ENT inspection, pharynx normal, moist mucous membranes Neck Exam: normal inspection, non-tender, supple, full range of motion Respiratory Exam: normal breath sounds, lungs clear, No respiratory distress Cardiovascular Exam: regular rate/rhythm, normal heart sounds Gastrointestinal/Abdomen Exam: soft, No tenderness, No mass Male Genitalia Exam: deferred Rectal Exam: deferred Back Exam: normal inspection, normal range of motion, No CVA tenderness, No vertebral tenderness Extremity Exam: normal inspection, normal range of motion Skin Exam: normal color, warm, dry Final Diagnosis/Problem List - Final Discharge Diagnosis/Problem (1) CHF (congestive heart failure) Current Visit: Yes Status: Acute Assessment & Plan: Chief Complaint Diagnosis CHF, Renal Insufficiency, EXAC COPD Allergies Allergy/AdvReac Type Severity Reaction Status Date / Time No Known Drug Allergies Allergy Verified 11/26/19 16:44 Vital Signs (Last 24 hours) Temp Pulse Resp BP Pulse Ox 07/19/20 11:19 72 20 90 L 07/19/20 07:43 98.6 F 69 22 108/56 92 L 07/19/20 06:19 88 20 93 L 07/19/20 03:36 98.1 F 84 21 107/57 98 07/19/20 02:39 92 H 24 97 07/19/20 00:00 98.4 F 69 20 130/69 94 L 07/18/20 22:40 69 20 94 L 07/18/20 19:48 98.3 F 80 24 116/67 96 07/18/20 18:38 80 24 96 07/18/20 16:00 98.3 F 76 26 H 112/59 92 L 07/18/20 14:30 85 26 H 94 L Home Medications Medication Instructions Recorded Confirmed Last Taken Type Budesonide/Formoterol Fumarate 2 puffs IH BID 07/16/20 07/16/20 07/16/20 08:00 History [Symbicort 160-4.5 Mcg Inhaler] Bumetanide 0.5 mg PO DAILY 07/16/20 07/16/20 07/15/20 08:00 History Current Medications Generic Name Dose Route Start Last Admin Trade Name Freq PRN Reason Stop Dose Admin Albuterol/Ipratropium 3 ml 07/16/20 15:00 07/19/20 11:18 Duoneb 0.5-3 Mg/3 Ml Neb IH 08/15/20 14:59 3 ml Q4HRT TREVOR Administration Benzonatate 100 mg 07/16/20 21:11 07/17/20 22:21 Tessalon Perles 100 Mg PO 08/15/20 21:10 100 mg Q4H PRN PRN Administration COUGH Bumetanide 1 mg 07/16/20 11:00 07/19/20 10:17 Bumex 1 Mg IV 08/15/20 10:59 1 mg BID DIURETIC TREVOR Administration Losartan Potassium 100 mg 07/16/20 11:45 07/19/20 10:17 Cozaar 50 Mg PO 08/15/20 11:44 100 mg DAILY TREVOR Administration Metoprolol Succinate 50 mg 07/16/20 11:45 07/19/20 10:17 Toprol Xl 50 Mg PO 08/15/20 11:44 50 mg DAILY TREVOR Administration Patient Own Med ( 0 each 07/16/20 19:00 07/19/20 06:24 Symbicort) 08/15/20 18:59 2 each BIDRT TREVOR Administration Simvastatin 20 mg 07/16/20 22:00 07/18/20 21:38 Zocor 20mg PO 08/15/20 21:59 20 mg HS TREVOR Administration Discontinued Medications Generic Name Dose Route Start Last Admin Trade Name Freq PRN Reason Stop Dose Admin Albuterol/Ipratropium Confirm 07/16/20 14:05 Duoneb 0.5-3 Mg/3 Ml Neb Administered 07/16/20 14:06 Dose 3 ml IH .STK-MED ONE Intake & Output (Last 24 hours) 07/16/20 07/17/20 07/18/20 07/19/20 11:59 11:59 11:59 11:59 Intake Total 1440 2019 2100 Output Total 2127 6790 3450 Balance -810 -161 -1454 Weight 104 kg 102.6 kg 101.9 kg 102.6 kg Microbiology Results (Last 24 hours) 07/18/20 20:30 Sputum - Expectorant Gram Stain - Pending 07/18/20 20:30 Sputum - Expectorant Sputum Culture - Pending Laboratory Results (Last 24 hours) 07/19/20 08:30 PT 35.0 H INR 3.06 H D Orders (Last 24 hours) Category Date Time Status PT INR [PROTIME WITH INR] Urgent Lab 07/19/20 08:30 Completed Sputum Culture [CULTURE,SPUTUM] Routine Lab 07/18/20 20:30 Received RT Miscellaneous Order ROUTINE RT 07/19/20 11:38 Active Patient Care Notes (Last 24 hours) 07/19/20 11:39 Case Management Note by Anca Flores DR. NOTIFIED PATIENT QUALIFIED FOR HOME OXYGEN AT - OVERNIGHT PULSE OX REPORT ON CHART FOR HIM TO VIEW WELL WHEN HE COMES TO SEE PATIENT. HE WOULD PATIENT TO START ON 2L/NC AT [facility] AND TO ALSO HAVE AN OUTPT HOME SLEEP STUDY. ORDER ENTERED- WILL SEND OXYGEN ORDER ONCE SIGNED TO JOHN Initialized on 07/19/20 11:39 - END OF NOTE 07/19/20 11:36 Case Management Note by Anca Flores PATIENT CONTINUES TO DENY ANY ADDITIONAL NEEDS REGARDING DC. HE PLANS TO RETURN HOME TO PRIOR LEVEL OF FUNCTIONING. HE WAS EDUCATED THAT HE MAY NEED HOME OXYGEN WHEN HE SLEEPS. HE VERIFIED UNDERSTANDING AND STATED [facility] WAS OKAY TO USE. 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 (5) Respiratory distress Current Visit: Yes Status: Resolved Code(s): R06.03 - ACUTE RESPIRATORY DISTRESS (6) SOB (shortness of breath) Current Visit: Yes Status: Resolved Code(s): R06.02 - SHORTNESS OF BREATH - Discharge Discharge Date: 07/19/20 Disposition: Home, Self-Care Condition: Stable Prescriptions: Continue Pravastatin Sodium [Pravachol] 20 mg PO HS Losartan Potassium [Cozaar] 100 mg PO DAILY Metoprolol Succinate 50 mg [Toprol Xl 50 MG] 50 mg PO DAILY #0 tablet.sa Bumetanide 0.5 mg PO DAILY Budesonide/Formoterol Fumarate [Symbicort 160-4.5 Mcg Inhaler] 2 puffs IH BID Changed Warfarin Sodium 5 mg [Coumadin 5 MG] 3 mg PO HS #0 Instructions: Oxygen Therapy, Adult (DC) Additional Instructions: YOU NEED TO WEAR 2L/NC OF OXYGEN WHEN SLEEPING CALL [facility] [place] WHEN YOU GET HOME AT [phone] SO THEY CAN COME SET UP THE OXYGEN Follow up with: PAULINO REYNA [ACTIVE STAFF] - 1 Week SKYLAR BLEVINS MD [Primary Care Provider] - 1 Week
[2020-07-19 12:00] VITALS: BP 116/59; PULSE 94; O2SAT 91
== END 2020-07-19 14:05 | disposition home or self-care (01) | DRG 293 ==
LOC: MED SURG 10:11 → OBSVTOIN 13:48 → MED SURG 13:48
PROVIDERS: ADMIT General Practice; ATTEND General Practice
DX: I11.0 Hypertensive heart disease with heart failure (principal); I50.43 Acute on chronic combined systolic (congestive) and diastolic (congestive) heart failure; I48.91 Unspecified atrial fibrillation; Z79.01 Long term (current) use of anticoagulants; R06.03 Acute respiratory distress; Z79.899 Other long term (current) drug therapy; J44.9 Chronic obstructive pulmonary disease, unspecified
CPT/HCPCS: 36415; 71046; 80048; 83880; 84484; 85027; 85610; 87070; 87077; 87186; 93005; 93306; 94150; 94640; 94760; 94762; U0003; A9270-GY

== ENCOUNTER 2020-09-30 16:55 | Emergency (ER) | payer MEDICARE ==
[2020-09-30 17:10] VITALS: O2SAT 100
[2020-09-30 17:27] LABS: Hematocrit 25.9 % (42-50); Hemoglobin 7.1 gm/dl (12.5-18.0); Mean Cell Volume 72.8 fl (78-100); Mean Corpuscular Hemoglobin 19.9 pg (26-32); Mean Corpuscular Hgb Concent. 27.4 g/dl (32-36); Mean Platelet Volume 10.5 fl (7.5-11.0); Platelet Count 168 K/mm3 (150-450); Red Blood Count 3.56 M/mm3 (4.1-5.6); Red Cell Distribution Width 18.6 % (11.5-14.0); White Blood Count 8.8 K/mm3 (4.0-10.5)
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
[2020-09-30 17:37] LABS: PTT 57.6 SECONDS (24.1-36.1)
[2020-09-30 17:48] LABS: A-aADO2 334; ABG HEMOGLOBIN 9.9; ABG POTASSIUM 4.3 (3.5-5.1); ARTERIAL BLD GAS O2 SATURATION 99.8 % (95-100); ARTERIAL BLOOD GAS BASE EXCESS -1.4 (-2.0-2.0); ARTERIAL BLOOD GAS FIO2 100 %; ARTERIAL BLOOD GAS PO2 299 mmHg (75-100); ARTERIAL BLOOD GAS pH 7.24 (7.35-7.45); CARBOXYHEMOGLOBIN 1.7 % THgb (0.0-6.9); HCO3- 27.4 (22-28); HGB O2 SAT 97.4 g/dF (94-100); Methhemoglobin 0.7 % (1.4-1.5); paO2 pAO1 0.47
[2020-09-30 17:49] LABS: ARTERIAL BLOOD GAS PCO2 64 mmHg (35-45)
[2020-09-30 17:54] LABS: ALBUMIN 4.1 g/dL (3.5-5.0); ANION GAP 11.1 MEQ/L (5-15); BILIRUBIN,TOTAL 1.6 mg/dL (0.2-1.3); Calcium 8.9 mg/dL (8.4-10.2); Creatinine 1 1.53 mg/dL (0.66-1.25); Potassium 4.3 mmol/L (3.5-5.1); Total Protein 7.6 g/dL (6.3-8.2)
[2020-09-30 18:01] LABS: INFLUENZA A NEGATIVE (NEGATIVE); INFLUENZA B NEGATIVE (NEGATIVE)
[2020-09-30 18:10] LABS: PROTIME 100.6 SECONDS (8.83-12.87)
[2020-09-30 18:11] LABS: INR 8.57 (0.8-3.0)
[2020-09-30] MEDS ORDERED: Vitamin K 10 MG/ML SQ ONE (18:16)
[2020-09-30] MEDS ORDERED: Vitamin K 10 MG/ML ONE (18:19)
[2020-09-30] MEDS ORDERED: Lasix 40 MG/4 ML IV ONE (20:10)
[2020-09-30] MEDS ORDERED: Lasix 40 MG/4 ML ONE (20:23)
[2020-09-30 22:10] LABS: Eosinophil 2 % (0.00-3.0); Lymphocytes 13 % (24-44); Monocyte 8 % (0.0-12.0); Neutrophils 77 % (36.-66.); Total Cells Counted 100
[2020-09-30 22:11] LABS: ANISOCYTOSIS 2+; Hypochromia 2+; Platelet Estimate NORMAL (NORMAL); Poikilocytosis 2+
[2020-09-30 23:13] LABS: ABO TYPING O; Antibody Screen NEGATIVE (NEGATIVE); RH TYPING POSITIVE
[2020-09-30] MEDS ORDERED: Sodium Chloride 0.9% 250 ML 250 ML IV SCH (23:45)
[2020-09-30] MEDS ORDERED: Sodium Chloride 0.9% 250 ML 250 ML IV ONE (23:56)
[2020-10-01] MEDS ORDERED: Lasix 40 MG/4 ML ONE (00:05)
[2020-10-01] MEDS ORDERED: Lasix 40 MG/4 ML IV ONE (00:46)
[2020-10-01 02:04] VITALS: BP 122/85; PULSE 102
--- NOTE | 2020-10-01 08:44 | XRAY ---
Indication: Dyspnea. Right effusion. Multiple contiguous axial images obtained through the chest without contrast as ordered. Comparison: March 18, 2020. Right effusion has moderately increased in the interim now occupying at least 50% of the hemithorax with subsequent right lower lobe and lesser degree right middle lobe compressive atelectasis. New tiny left effusion. Stable diffuse centrilobular pulmonary emphysema, scattered fibrosis/scarring, and tiny left lower lobe calcified granuloma. Heart remains enlarged again with mitral valve replacement, left posterior pericardial calcifications, and remnant extracardiac leads. Aorta remains minimally arteriosclerotic without aneurysm. Stable subcarinal calcified node. No pathologic mediastinal lymphadenopathy. Bony thorax intact again with osteopenia, degenerative changes throughout the spine, and small multilevel Schmorl nodes. Limited upper abdomen demonstrate small right lobe hepatic cyst. Impression: 1. Interval increasing moderate right effusion with compressive atelectasis and new tiny left effusion. 2. Again chronic findings including cardiomegaly with pericardial calcifications, pulmonary emphysema, fibrosis/scarring, hepatic cyst, and old granulomatous disease.
--- NOTE | 2020-10-01 08:48 | XRAY ---
Indication: Short of breath, cough, and hemoptysis. Comparison: July 16, 2020. Portable chest demonstrates new large right effusion with compressive atelectasis occupying more than 50% of hemithorax. Left lung clear with stable cardiomegaly and mitral valve replacement surgery. Bony thorax intact again with mild osteopenia and degenerative changes.
[2020-10-03 02:56] LABS: ABG SITE rr; ALLEN TEST OK? yes
== END 2020-10-01 02:44 | disposition short-term general hospital (02) ==
LOC: ED 16:55
DX: I50.9 Heart failure, unspecified (principal); I21.4 Non-ST elevation (NSTEMI) myocardial infarction; K92.2 Gastrointestinal hemorrhage, unspecified; Z79.899 Other long term (current) drug therapy; R11.10 Vomiting, unspecified; R19.7 Diarrhea, unspecified; I10 Essential (primary) hypertension; E78.00 Pure hypercholesterolemia, unspecified; J44.9 Chronic obstructive pulmonary disease, unspecified; Z99.81 Dependence on supplemental oxygen
CPT/HCPCS: 36000; 36415; 36430; 36600; 71045; 71250; 80053; 82375; 82803; 83605; 83880; 84484; 85025; 85610; 85730; 86850; 86900; 86901; 86931; 87400; 93005; 94002; 96372; 96374; 96376; 99285; 99291; P9017; U0003; J1940; J3430

== ENCOUNTER 2021-01-06 16:00 | Inpatient (IN) | payer MEDICARE ==
[2021-01-06 16:33] LABS: Hematocrit 36.6 % (42-50); Hemoglobin 10.5 gm/dl (12.5-18.0); Mean Cell Volume 96.1 fl (78-100); Mean Corpuscular Hemoglobin 27.6 pg (26-32); Mean Corpuscular Hgb Concent. 28.7 g/dl (32-36); Mean Platelet Volume 10.4 fl (7.5-11.0); Platelet Count 115 K/mm3 (150-450); Red Blood Count 3.81 M/mm3 (4.1-5.6); Red Cell Distribution Width 16.7 % (11.5-14.0); White Blood Count 5.9 K/mm3 (4.0-10.5)
--- NOTE | 2021-01-06 16:37 | ERPHSYRPT ---
- History of Present Illness Source: patient Patient Subjective Stated Complaint: Pt has began getting increasingly more sh ort of breath for the past 3 days Triage Nursing Assessment: Pt brought to the ER by his ex , milo vargas, on 2.5L NC, denies pain, SOB, states that he had pneumonia approx 3 weeks ago and was in this hospital, pulses normal, skin pale and dry Physician History: 80 yo wm who is 2.5L O2 dep due to COPD/CHF presents w increasing dyspnea x3 days. Pt was admitted to [facility] 3 wks ago for pneumonia and has a productive cough. He denies fever/CP/N/V/D/melena/hematochezia. He can not lie flat and dyspnea is worse upon exertion Timing/Duration: day(s) (3 days) Activities at Onset: rest Severity of Dyspnea-Max: moderate Severity of Dyspnea-Current: mild Possible Cause: frequent episodes Modifying Factors: Improves With: exertion Associated Symptoms: cough, ankle swelling, leg swelling, productive cough, No chest pain/discomfort, No edema, No fever, No insomnia, No loss of appetite, No lightheadedness, No wheezing, No weakness, No chills, No hemoptysis, No calf mary n, No dizziness, No heaviness, No heart racing, No lightheadedness, No muscle spasms feet, No muscle spasms hands, No painful breathing, No sweating, No tightness Allergies/Adverse Reactions: No Known Drug Allergies Allergy (Verified 11/01/20 11:16) Home Medications: Pravastatin Sodium [Pravachol] 20 mg PO HS 02/15/16 [History] Budesonide/Formoterol Fumarate [Symbicort 160-4.5 Mcg Inhaler] 2 puffs IH BID 07/16/20 [History] Warfarin Sodium 3 mg [Coumadin 3 MG] 2 mg PO DAILY 11/01/20 [History] Albuterol 2.5 mg/0.5 ml [PROVENTIL Solution 2.5 MG/0.5 ML] 3 ml QID PRN 11/08/20 [History] Ferrous Sulfate 325 mg PO DAILY 11/08/20 [History] Furosemide 40 mg [Lasix 40 MG] 40 mg PO BID 11/08/20 [History] Metoprolol Succinate 50 mg [Toprol Xl 50 MG] 25 mg PO DAILY 11/08/20 [History] Potassium Chloride [K-Dur] 20 meq BID 11/08/20 [History] Sacubitril/Valsartan [Entresto 24 mg-26 mg Tablet] 24 mg BID 11/08/20 [History] Amiodarone HCl [Pacerone] 200 mg PO DAILY 01/06/21 [History] Famotidine 20 mg [Pepcid 20 MG] 20 mg PO DAILY 01/06/21 [History] Warfarin Sodium 5 mg [Coumadin 5 MG] 5 mg PO DAILY 01/06/21 [History] Hx Tetanus, Diphtheria Vaccination/Date Given: No Hx Influenza Vaccination/Date Given: Yes Hx Pneumococcal Vaccination/Date Given: No Travel Risk - International Travel Have you traveled outside of the country in past 3 weeks: No - Coronavirus Screening Are you exhibiting any of the following symptoms?: No - Vaccine Status Have you recieved a Covid-19 vaccination: No - Review of Systems Constitutional: No Symptoms, Fatigue, Lethargy, Malaise Eyes: No Symptoms Ears, Nose, & Throat: No Symptoms Respiratory: No Symptoms, Cough, Dyspnea, Dyspnea on Exertion (VERA) Cardiac: No Symptoms Abdominal/Gastrointestinal: No Symptoms Genitourinary Symptoms: No Symptoms Musculoskeletal: No Symptoms Skin: No Symptoms Neurological: No Symptoms Psychological: No Symptoms Endocrine: No Symptoms Hematologic/Lymphatic: No Symptoms Immunological/Allergic: No Symptoms - Past Medical History Pertinent Past Medical History: Yes Neurological History: No Pertinent History ENT History: No Pertinent History Cardiac History: Arrhythmia, High Cholesterol, Hypertension, Other Respiratory History: No Pertinent History Endocrine Medical History: No Pertinent History Musculoskeletal History: No Pertinent History GI Medical History: No Pertinent History History: No Pertinent History Psycho-Social History: No Pertinent History Male Reproductive Disorders: No Pertinent History Other Medical History: 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 - Past Surgical History Past Surgical History: Yes Neuro Surgical History: No Pertinent History Cardiac: Valve Replacement Respiratory: No Pertinent History Gastrointestinal: No Pertinent History Genitourinary: No Pertinent History Musculoskeletal: No Pertinent History Male Surgical History: No Pertinent History - Social History Smoking Status: Former smoker Exposure to second hand smoke: No Drug Use: none Patient Lives Alone: No Significant Family History: no pertinent family hx - Nursing Vital Signs Nursing Vital Signs: Initial Vital Signs Temperature 99.6 F 01/06/21 16:08 Pulse Rate 65 01/06/21 16:08 Respiratory Rate 17 01/06/21 16:08 Blood Pressure 130/68 01/06/21 16:08 O2 Sat by Pulse Oximetry 98 01/06/21 16:08 Pain Scale Pain Intensity 4 - Physical Exam General Appearance: no apparent distress Eye Exam: PERRL/EOMI, eyes nml inspection Ears, Nose, Throat Exam: normal ENT inspection, normal pharynx Neck Exam: normal inspection, non-tender, supple, full range of motion, No Brudzinski, No Kernig's, No meningismus Respiratory Exam: airway intact, prolonged expirations (Decreased at bases B), wheezing (Scattered) Cardiovascular/Chest Exam: irregular (IR-IR/Audible prosthetic valve) Abdominal/Gastrointestinal Exam: soft, normal bowel sounds, No tenderness Neurologic Exam: alert, oriented x 3, cooperative, improvement leader II-XII nml as tested, normal mood/affect, sensation nml, No motor deficits, No sensory deficit Skin Exam: normal color, warm, dry Lymphatic Exam: No adenopathy SpO2 Interpretation: normal, O2 applied SpO2: 98 O2 Delivery: Nasal Cannula - Course EKG Interpreted by Me: RATE (Afib/R67/IVCD/Prolonged QT-QTc) - Radiology Exams Chest X-ray Interpretation: Interpreted by me Ordered Tests: Active Orders 24 hr Category Date Time Status EKG-ER Only STAT Care 01/06/21 16:25 Active CHEST 1 VIEW (PORTABLE) Stat Exams 01/06/21 16:26 Completed CHEST WITHOUT CONTRAST [CT] Stat Exams 01/06/21 17:10 Taken CBC W DIFF Stat Lab 01/06/21 15:25 Completed CMP Stat Lab 01/06/21 15:25 Completed Lactic Acid Stat Lab 01/06/21 16:47 Completed Manual Differential NC Stat Lab 01/06/21 15:25 Completed NT PRO BNP Stat Lab 01/06/21 15:25 Completed PROTIME WITH INR Stat Lab 01/06/21 16:25 Completed PTT Stat Lab 01/06/21 16:25 Completed TROPONIN Q3H Lab 01/06/21 15:25 Completed TROPONIN Q3H Lab 01/06/21 19:30 Ordered TROPONIN Q3H Lab 01/06/21 22:30 Ordered TROPONIN Q3H Lab 01/07/21 01:30 Ordered TROPONIN Q3H Lab 01/07/21 04:30 Ordered Lab/Rad Data: Laboratory Result Diagrams 01/06/21 15:25 01/06/21 15:25 Laboratory Results 01/06/21 01/06/21 01/06/21 Range/Units 16:47 16:25 15:25 WBC (4.0-10.5) K/mm3 RBC (4.1-5.6) M/mm3 Hgb (12.5-18.0) gm/dl Hct (42-50) % MCV (78-100) fl MCH (26-32) pg MCHC (32-36) g/dl RDW (11.5-14.0) % Plt Count (150-450) K/mm3 MPV (7.5-11.0) fl PT 16.2 H (8.83-12.87) SECONDS INR 1.43 (0.8-3.0) APTT 34.8 (24.1-36.1) SECONDS Sodium (137-145) mmol/L Potassium (3.5-5.1) mmol/L Chloride (98-107) mmol/L Carbon Dioxide (22-30) mmol/L Anion Gap (5-15) MEQ/L BUN (9-20) mg/dL Creatinine (0.66-1.25) mg/dL Estimated GFR ML/MIN Glucose (74-106) mg/dL Lactic Acid 1.6 (0.4-2.0) Calcium (8.4-10.2) mg/dL Total Bilirubin (0.2-1.3) mg/dL AST (17-59) U/L ALT (0-50) U/L Alkaline Phosphatase (38-126) U/L Troponin I < 0.012 (0.000-0.034) ng/mL NT-Pro-B Natriuret Pep (0-1800) pg/mL Serum Total Protein (6.3-8.2) g/dL Albumin (3.5-5.0) g/dL 01/06/21 01/06/21 Range/Units 15:25 15:25 WBC 5.9 (4.0-10.5) K/mm3 RBC 3.81 L (4.1-5.6) M/mm3 Hgb 10.5 L (12.5-18.0) gm/dl Hct 36.6 L (42-50) % MCV 96.1 (78-100) fl MCH 27.6 (26-32) pg MCHC 28.7 L (32-36) g/dl RDW 16.7 H (11.5-14.0) % Plt Count 115 L (150-450) K/mm3 MPV 10.4 (7.5-11.0) fl PT (8.83-12.87) SECONDS INR (0.8-3.0) APTT (24.1-36.1) SECONDS Sodium 140 (137-145) mmol/L Potassium 5.1 (3.5-5.1) mmol/L Chloride 95 L (98-107) mmol/L Carbon Dioxide 37 H (22-30) mmol/L Anion Gap 13.1 (5-15) MEQ/L BUN 25 H (9-20) mg/dL Creatinine 1.74 H (0.66-1.25) mg/dL Estimated GFR 40.5 ML/MIN Glucose 93 (74-106) mg/dL Lactic Acid (0.4-2.0) Calcium 9.4 (8.4-10.2) mg/dL Total Bilirubin 0.50 (0.2-1.3) mg/dL AST 25 (17-59) U/L ALT 24 (0-50) U/L Alkaline Phosphatase 141 H (38-126) U/L Troponin I (0.000-0.034) ng/mL NT-Pro-B Natriuret Pep 3060 H (0-1800) pg/mL Serum Total Protein 7.1 (6.3-8.2) g/dL Albumin 4.1 (3.5-5.0) g/dL - Progress Progress Note: 01/06/21 18:[address] Blevins 01/06/21 18:33 40mg IV Lasix Discussed with : Chiqui Counseled pt/family regarding: lab results, diagnosis, rad results - Departure Departure Disposition: Observation Clinical Impression: CHF (congestive heart failure), Atrial fibrillation, COPD (chronic obstructive pulmonary disease) Condition: Stable Critical Care Time: No Referrals: SKYLAR BLEVINS MD [Primary Care Provider] - Instructions: Heart Failure, Chronic Obstructive Pulmonary Disease
[2021-01-06 16:45] LABS: INR 1.43 (0.8-3.0); PROTIME 16.2 SECONDS (8.83-12.87)
[2021-01-06 16:48] LABS: PTT 34.8 SECONDS (24.1-36.1)
--- NOTE | 2021-01-06 16:56 | XRAY ---
Indication: Short of breath. Comparison: September 30, 2020. Portable chest demonstrates moderate diminished right effusion with small residual effusion and right midlung subsegmental atelectasis. Left lung clear. Heart remains enlarged again with mitral valve replacement surgery. Bony thorax intact again with osteopenia, degenerative changes, and sternotomy wires.
[2021-01-06 16:58] LABS: ALBUMIN 4.1 g/dL (3.5-5.0); BILIRUBIN,TOTAL 0.5 mg/dL (0.2-1.3); Calcium 9.4 mg/dL (8.4-10.2); Creatinine 1 1.74 mg/dL (0.66-1.25); EST GLOMERULAR FILTRATION RATE 40.5 ML/MIN; Potassium 5.1 mmol/L (3.5-5.1); Total Protein 7.1 g/dL (6.3-8.2)
[2021-01-06 17:02] LABS: ANION GAP 13.1 MEQ/L (5-15)
[2021-01-06] MEDS ORDERED: Lasix 40 MG/4 ML IV ONE (18:31)
[2021-01-06] MEDS ORDERED: Lasix 40 MG/4 ML ONE (18:32)
[2021-01-06] MEDS ORDERED: Coumadin 5 MG PO ONE (18:43)
[2021-01-06] MEDS ORDERED: ENOXAPARIN SODIUM SQ ONE ×2 (18:46→18:48)
[2021-01-06 18:54] LABS: Basophil 1 % (0.0-1.0); Eosinophil 4 % (0.00-3.0); Lymphocytes 15 % (24-44); Monocyte 6 % (0.0-12.0); Neutrophils 74 % (36.-66.); Total Cells Counted 100
[2021-01-06 18:55] LABS: ANISOCYTOSIS 1+; Hypochromia RARE; Platelet Estimate DECREASED (NORMAL)
[2021-01-06 19:44] LABS: INFLUENZA A NEGATIVE (NEGATIVE); INFLUENZA B NEGATIVE (NEGATIVE); RESPIRATORY SYNCTIAL VIRUS NEGATIVE (Negative)
[2021-01-06] MEDS ORDERED: PROVENTIL 2.5 MG/3 ML NEB IH ONE (22:43)
[2021-01-06] MEDS: PROVENTIL 2.5 MG/3 ML NEB IH PRN (22:51)
[2021-01-07] MEDS: PROVENTIL 2.5 MG/3 ML NEB IH PRN (04:00)
[2021-01-07 05:11] LABS: Hematocrit 34.1 % (42-50); Hemoglobin 9.9 gm/dl (12.5-18.0); Mean Cell Volume 96.3 fl (78-100); Mean Platelet Volume 10.3 fl (7.5-11.0); Platelet Count 115 K/mm3 (150-450); Red Blood Count 3.54 M/mm3 (4.1-5.6); Red Cell Distribution Width 16.7 % (11.5-14.0); White Blood Count 5.3 K/mm3 (4.0-10.5)
[2021-01-07 05:41] LABS: Calcium 9.1 mg/dL (8.4-10.2); Creatinine 1 1.7 mg/dL (0.66-1.25); EST GLOMERULAR FILTRATION RATE 41.6 ML/MIN
[2021-01-07 05:50] LABS: Potassium 3.8 mmol/L (3.5-5.1)
[2021-01-07 05:51] LABS: ANION GAP 10.8 MEQ/L (5-15)
[2021-01-07] MEDS: DUONEB 0.5-3 MG/3 ml Neb IH SCH ×4 (06:43→19:31)
[2021-01-07] MEDS ORDERED: DUONEB 0.5-3 MG/3 ml Neb IH PRN (07:15)
--- NOTE | 2021-01-07 08:41 | XRAY ---
Indication: Dyspnea. Abnormal chest x-ray. Multiple contiguous axial images obtained through the chest without contrast. Comparison: September 30, 2020. There is again moderate right effusion with right mid to lower lung subsegmental atelectasis less than before. Remaining lungs demonstrate stable diffuse centrilobular pulmonary emphysema, scattered fibrosis/scarring, and tiny left lower lobe calcified granuloma. Heart remains enlarged again with mitral valve replacement surgery, left posterior pericardial calcifications, and remnant extracardiac leads. Aorta remains minimally arteriosclerotic without aneurysm. Stable subcarinal and left hilar calcified nodes. No pathologic mediastinal lymphadenopathy. Bony thorax remains intact again with mild osteopenia, degenerative changes throughout the spine, small multilevel Schmorl nodes, and sternotomy wires. Limited upper abdomen demonstrates stable right lobe hepatic cyst. Impression: 1. Moderate right effusion with subsegmental atelectasis as detailed less than before. 2. Continued chronic findings including cardiomegaly with pericardial calcifications, pulmonary emphysema, fibrosis/scarring, hepatic cyst, chronic bony findings, and old granulomatous disease. 3. Remaining CT chest without contrast exam is negative.
[2021-01-07] MEDS: Lasix 40 MG/4 ML IV SCH ×2 (09:01→16:58)
[2021-01-07] MEDS: Cordarone 200 MG PO SCH (09:02)
[2021-01-07] MEDS: ENTRESTO 49 MG-51 MG TABLET PO SCH ×2 (09:02→21:31)
[2021-01-07] MEDS: Colace 100 MG PO SCH ×2 (09:03→21:30)
[2021-01-07] MEDS: Klor Con 10 MEQ PO SCH ×2 (09:03→21:30)
[2021-01-07] MEDS: Toprol-Xl 25MG Tablets PO SCH (09:04)
[2021-01-07] MEDS: Advair Hfa 115/21 Common canister IH SCH ×2 (09:57→19:32)
[2021-01-07] MEDS ORDERED: NON-FORMULARY ITEM (Sacubitril/Valsartan [Entresto 24 Mg-26 Mg Tablet] 1 TAB) PO SCH (10:00)
[2021-01-07] MEDS ORDERED: Toprol Xl 50 MG PO SCH (10:00)
[2021-01-07] MEDS ORDERED: NON-FORMULARY ITEM (Budesonide/Formoterol Fumarate [Symbicort 160-4.5 Mcg Inhaler] 2 PUFFS IH SCH (10:00)
[2021-01-07] MEDS ORDERED: NON-FORMULARY ITEM (Potassium Chloride [K-Dur] 20 MEQ) PO SCH (10:00)
[2021-01-07 11:09] LABS: INR 1.5 (0.8-3.0)
--- NOTE | 2021-01-07 13:05 | PCM.HP ---
History of Present Illness - Chief Complaint Chief Complaint: c/o shortness of breath History of Present Illness: Mr.ALUMBAUGH SHEIKH is a 80 year old male.presents w increasing dyspnea x3 days. Pt was admitted to [facility] 3 wks ago for pneumonia and has a productive cough. He denies fever/CP/N/V/D/melena/hematochezia. He can not lie flat and dyspnea is worse upon exertion Timing/Duration: day(s) (3 days) Activities at Onset: rest Severity of Dyspnea-Max: moderate Severity of Dyspnea-Current: mild Possible Cause: frequent episodes Modifying Factors: Improves With: exertion Associated Symptoms: cough, ankle swelling, leg swelling, productive cough, No chest pain/discomfort, No edema, No fever, No insomnia, No loss of appetite, No lightheadedness, No wheezing, No weakness, No chills, No hemoptysis, No calf pain, No dizziness, No heaviness, No heart racing, No lightheadedness, No muscle spasms feet, No muscle spasms hands, No painful breathing, No sweating, No tightness - Review of Systems Constitutional: No Fever, No Chills Eyes: No Symptoms Ears, Nose, & Throat: No Symptoms Respiratory: Cough, Short Of Breath, Wheezing Cardiac: Edema, Orthopnea, PND, No Chest Pain, No Syncope Abdominal/Gastrointestinal: No Abdominal Pain, No Nausea, No Vomiting, No Diarrhea Genitourinary Symptoms: No Dysuria Musculoskeletal: No Back Pain, No Neck Pain Skin: No Rash Neurological: No Dizziness, No Focal Weakness, No Sensory Changes Psychological: No Symptoms Endocrine: No Symptoms Hematologic/Lymphatic: No Symptoms Immunological/Allergic: No Symptoms Medications & Allergies Home Medications: Home Medication List Pravastatin Sodium [Pravachol] 20 mg PO HS 02/15/16 [History Confirmed 01/06/21] Budesonide/Formoterol Fumarate [Symbicort 160-4.5 Mcg Inhaler] 2 puffs IH BID 07/16/20 [History Confirmed 01/06/21] Ferrous Sulfate 325 mg PO HS 11/08/20 [History Confirmed 01/06/21] Furosemide 40 mg [Lasix 40 MG] 40 mg PO BID 11/08/20 [History Confirmed 01/06/21] Metoprolol Succinate 50 mg [Toprol Xl 50 MG] 25 mg PO DAILY 11/08/20 [History Confirmed 01/06/21] Potassium Chloride [K-Dur] 20 meq PO BID 11/08/20 [History Confirmed 01/06/21] Sacubitril/Valsartan [Entresto 24 mg-26 mg Tablet] 1 tab PO BID 11/08/20 [History Confirmed 01/06/21] Albuterol/Ipratropium 3ml Neb* [DUONEB 0.5-3 MG/3 ml Neb] 1 neb IH Q4HPRN PRN 01/06/21 [History Confirmed 01/06/21] Amiodarone HCl [Pacerone] 200 mg PO DAILY 01/06/21 [History Confirmed 01/06/21] Docusate Sodium 100 mg [Colace 100 MG] 100 mg PO BID 01/06/21 [History Confirmed 01/06/21] Famotidine 20 mg [Pepcid 20 MG] 20 mg PO HS 01/06/21 [History Confirmed 01/06/21] Magnesium Chloride 64 mg [Slow-Mag 64 MG] 64 mg PO HS 01/06/21 [History Confirmed 01/06/21] Warfarin Sodium 5 mg [Coumadin 5 MG] 5 mg PO HS 01/06/21 [History Confirmed 01/06/21] Allergies/Adverse Reactions: Allergies Allergy/AdvReac Type Severity Reaction Status Date / Time No Known Drug Allergies Allergy Verified 01/06/21 22:40 - Past Medical History Past Medical History: Yes Neurological History: No Pertinent History ENT History: Cataracts Cardiac History: Arrhythmia, High Cholesterol, Hypertension, Other Respiratory History: CHF, COPD Endocrine Medical History: No Pertinent History Musculoskelatal History: No Pertinent History GI Medical History: No Pertinent History History: No Pertinent History Pyscho-Social History: No Pertinent History Male Reproductive Disorders: No Pertinent History Comment: 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 - Past Surgical History Past Surgical History: Yes Neuro Surgical History: No Pertinent History Cardiac History: Valve Replacement Respiratory Surgery: No Pertinent History GI Surgical History: No Pertinent History Genitourinary Surgical Hx: No Pertinent History Musculskeletal Surgical Hx: No Pertinent History Male Surgical History: No Pertinent History - Social History Smoking Status: Former smoker Exposure to second hand smoke: No Alcohol: None Drug Use: none Significant Family History: no pertinent family hx - Physical Exam Vital Signs: Vital Signs - 24 hr Temp Pulse Resp BP BP Pulse Ox 01/07/21 11:14 98 F 61 18 106/57 133/64 98 01/07/21 07:48 97.8 F 54 L 18 113/54 98 01/07/21 06:40 54 L 18 92 L 01/07/21 04:02 64 18 97 01/07/21 04:00 98.2 F 54 L 21 123/66 94 L 01/07/21 00:00 98.1 F 62 16 122/61 97 01/06/21 22:51 67 20 97 01/06/21 21:07 98.6 F 62 20 143/71 97 01/06/21 20:58 98.4 F 62 18 143/71 97 01/06/21 20:54 98.4 F 62 18 143/71 97 01/06/21 19:00 64 21 133/64 100 01/06/21 18:33 98 01/06/21 18:14 63 18 119/75 100 01/06/21 17:08 99.4 F 57 L 20 127/64 98 01/06/21 16:08 99.6 F 65 17 130/68 98 Oxygen-Last 24 hours Oxygen Flowrate (L/min)-RT 3 Oxygen Flowrate (L/min)-RT 2 General Appearance: no apparent distress, alert Neurologic Exam: alert, oriented x 3, cooperative, normal mood/affect, nml cerebellar function, nml station & gait, sensation nml, No motor deficits Eye Exam: PERRL/EOMI, eyes nml inspection Ears, Nose, Throat Exam: normal ENT inspection, TMs normal, pharynx normal, moist mucous membranes Neck Exam: normal inspection, non-tender, supple, full range of motion Respiratory Exam: diminished breath sounds, crackles/rales, rhonchi, wheezing, No respiratory distress Cardiovascular Exam: irregular, capillary refill 2-3 sec, edema Gastrointestinal/Abdomen Exam: soft, normal bowel sounds, No tenderness, No mass Back Exam: normal inspection, normal range of motion, No CVA tenderness, No vertebral tenderness Extremity Exam: normal inspection, normal range of motion, pelvis stable Skin Exam: normal color, warm, dry, No rash Lymphatic Exam: No adenopathy Results - Labs Lab/Micro Results: Lab Results-Last 24 Hours 01/06/21 01/06/21 01/06/21 Range/Units 15:25 15:25 15:25 WBC 5.9 (4.0-10.5) K/mm3 RBC 3.81 L (4.1-5.6) M/mm3 Hgb 10.5 L (12.5-18.0) gm/dl Hct 36.6 L (42-50) % MCV 96.1 (78-100) fl MCH 27.6 (26-32) pg MCHC 28.7 L (32-36) g/dl RDW 16.7 H (11.5-14.0) % Plt Count 115 L (150-450) K/mm3 MPV 10.4 (7.5-11.0) fl Segmented Neutrophils 74 H (36.-66.) % Lymphocytes (Manual) 15 L (24-44) % Monocytes (Manual) 6 (0.0-12.0) % Eosinophils (Manual) 4 H (0.00-3.0) % Basophils (Manual) 1 (0.0-1.0) % Hypochromia RARE Platelet Estimate DECREASED (NORMAL) RBC Morphology ABNORMAL Anisocytosis 1+ PT (8.83-12.87) SECONDS INR (0.8-3.0) APTT (24.1-36.1) SECONDS Sodium 140 (137-145) mmol/L Potassium 5.1 (3.5-5.1) mmol/L Chloride 95 L (98-107) mmol/L Carbon Dioxide 37 H (22-30) mmol/L Anion Gap 13.1 (5-15) MEQ/L BUN 25 H (9-20) mg/dL Creatinine 1.74 H (0.66-1.25) mg/dL Estimated GFR 40.5 ML/MIN Glucose 93 (74-106) mg/dL Lactic Acid (0.4-2.0) Calcium 9.4 (8.4-10.2) mg/dL Total Bilirubin 0.50 (0.2-1.3) mg/dL AST 25 (17-59) U/L ALT 24 (0-50) U/L Alkaline Phosphatase 141 H (38-126) U/L Troponin I < 0.012 (0.000-0.034) ng/mL NT-Pro-B Natriuret Pep 3060 H (0-1800) pg/mL Serum Total Protein 7.1 (6.3-8.2) g/dL Albumin 4.1 (3.5-5.0) g/dL Influenza Type A Ag (NEGATIVE) Influenza Type B Ag (NEGATIVE) RSV (PCR) (Negative) SARS-CoV-2 (PCR) (NEGATIVE) 01/06/21 01/06/21 01/06/21 Range/Units 16:25 16:47 19:00 WBC (4.0-10.5) K/mm3 RBC (4.1-5.6) M/mm3 Hgb (12.5-18.0) gm/dl Hct (42-50) % MCV (78-100) fl MCH (26-32) pg MCHC (32-36) g/dl RDW (11.5-14.0) % Plt Count (150-450) K/mm3 MPV (7.5-11.0) fl Segmented Neutrophils (36.-66.) % Lymphocytes (Manual) (24-44) % Monocytes (Manual) (0.0-12.0) % Eosinophils (Manual) (0.00-3.0) % Basophils (Manual) (0.0-1.0) % Hypochromia Platelet Estimate (NORMAL) RBC Morphology Anisocytosis PT 16.2 H (8.83-12.87) SECONDS INR 1.43 (0.8-3.0) APTT 34.8 (24.1-36.1) SECONDS Sodium (137-145) mmol/L Potassium (3.5-5.1) mmol/L Chloride (98-107) mmol/L Carbon Dioxide (22-30) mmol/L Anion Gap (5-15) MEQ/L BUN (9-20) mg/dL Creatinine (0.66-1.25) mg/dL Estimated GFR ML/MIN Glucose (74-106) mg/dL Lactic Acid 1.6 (0.4-2.0) Calcium (8.4-10.2) mg/dL Total Bilirubin (0.2-1.3) mg/dL AST (17-59) U/L ALT (0-50) U/L Alkaline Phosphatase (38-126) U/L Troponin I (0.000-0.034) ng/mL NT-Pro-B Natriuret Pep (0-1800) pg/mL Serum Total Protein (6.3-8.2) g/dL Albumin (3.5-5.0) g/dL Influenza Type A Ag NEGATIVE (NEGATIVE) Influenza Type B Ag NEGATIVE (NEGATIVE) RSV (PCR) NEGATIVE (Negative) SARS-CoV-2 (PCR) NEGATIVE (NEGATIVE) 01/06/21 01/06/21 01/07/21 Range/Units 19:44 22:35 01:38 WBC (4.0-10.5) K/mm3 RBC (4.1-5.6) M/mm3 Hgb (12.5-18.0) gm/dl Hct (42-50) % MCV (78-100) fl MCH (26-32) pg MCHC (32-36) g/dl RDW (11.5-14.0) % Plt Count (150-450) K/mm3 MPV (7.5-11.0) fl Segmented Neutrophils (36.-66.) % Lymphocytes (Manual) (24-44) % Monocytes (Manual) (0.0-12.0) % Eosinophils (Manual) (0.00-3.0) % Basophils (Manual) (0.0-1.0) % Hypochromia Platelet Estimate (NORMAL) RBC Morphology Anisocytosis PT (8.83-12.87) SECONDS INR (0.8-3.0) APTT (24.1-36.1) SECONDS Sodium (137-145) mmol/L Potassium (3.5-5.1) mmol/L Chloride (98-107) mmol/L Carbon Dioxide (22-30) mmol/L Anion Gap (5-15) MEQ/L BUN (9-20) mg/dL Creatinine (0.66-1.25) mg/dL Estimated GFR ML/MIN Glucose (74-106) mg/dL Lactic Acid (0.4-2.0) Calcium (8.4-10.2) mg/dL Total Bilirubin (0.2-1.3) mg/dL AST (17-59) U/L ALT (0-50) U/L Alkaline Phosphatase (38-126) U/L Troponin I < 0.012 0.015 0.017 (0.000-0.034) ng/mL NT-Pro-B Natriuret Pep (0-1800) pg/mL Serum Total Protein (6.3-8.2) g/dL Albumin (3.5-5.0) g/dL Influenza Type A Ag (NEGATIVE) Influenza Type B Ag (NEGATIVE) RSV (PCR) (Negative) SARS-CoV-2 (PCR) (NEGATIVE) 01/07/21 01/07/21 01/07/21 Range/Units 04:00 04:20 04:20 WBC 5.3 (4.0-10.5) K/mm3 RBC 3.54 L (4.1-5.6) M/mm3 Hgb 9.9 L (12.5-18.0) gm/dl Hct 34.1 L (42-50) % MCV 96.3 (78-100) fl MCH 28.0 (26-32) pg MCHC 29.0 L (32-36) g/dl RDW 16.7 H (11.5-14.0) % Plt Count 115 L (150-450) K/mm3 MPV 10.3 (7.5-11.0) fl Segmented Neutrophils (36.-66.) % Lymphocytes (Manual) (24-44) % Monocytes (Manual) (0.0-12.0) % Eosinophils (Manual) (0.00-3.0) % Basophils (Manual) (0.0-1.0) % Hypochromia Platelet Estimate (NORMAL) RBC Morphology Anisocytosis PT (8.83-12.87) SECONDS INR (0.8-3.0) APTT (24.1-36.1) SECONDS Sodium 137 (137-145) mmol/L Potassium 3.8 D (3.5-5.1) mmol/L Chloride 92 L (98-107) mmol/L Carbon Dioxide 38 H (22-30) mmol/L Anion Gap 10.8 (5-15) MEQ/L BUN 25 H (9-20) mg/dL Creatinine 1.70 H (0.66-1.25) mg/dL Estimated GFR 41.6 ML/MIN Glucose 117 H (74-106) mg/dL Lactic Acid (0.4-2.0) Calcium 9.1 (8.4-10.2) mg/dL Total Bilirubin (0.2-1.3) mg/dL AST (17-59) U/L ALT (0-50) U/L Alkaline Phosphatase (38-126) U/L Troponin I 0.019 (0.000-0.034) ng/mL NT-Pro-B Natriuret Pep 4000 H (0-1800) pg/mL Serum Total Protein (6.3-8.2) g/dL Albumin (3.5-5.0) g/dL Influenza Type A Ag (NEGATIVE) Influenza Type B Ag (NEGATIVE) RSV (PCR) (Negative) SARS-CoV-2 (PCR) (NEGATIVE) 01/07/21 Range/Units 04:38 WBC (4.0-10.5) K/mm3 RBC (4.1-5.6) M/mm3 Hgb (12.5-18.0) gm/dl Hct (42-50) % MCV (78-100) fl MCH (26-32) pg MCHC (32-36) g/dl RDW (11.5-14.0) % Plt Count (150-450) K/mm3 MPV (7.5-11.0) fl Segmented Neutrophils (36.-66.) % Lymphocytes (Manual) (24-44) % Monocytes (Manual) (0.0-12.0) % Eosinophils (Manual) (0.00-3.0) % Basophils (Manual) (0.0-1.0) % Hypochromia Platelet Estimate (NORMAL) RBC Morphology Anisocytosis PT 17.0 H (8.83-12.87) SECONDS INR 1.50 (0.8-3.0) APTT (24.1-36.1) SECONDS Sodium (137-145) mmol/L Potassium (3.5-5.1) mmol/L Chloride (98-107) mmol/L Carbon Dioxide (22-30) mmol/L Anion Gap (5-15) MEQ/L BUN (9-20) mg/dL Creatinine (0.66-1.25) mg/dL Estimated GFR ML/MIN Glucose (74-106) mg/dL Lactic Acid (0.4-2.0) Calcium (8.4-10.2) mg/dL Total Bilirubin (0.2-1.3) mg/dL AST (17-59) U/L ALT (0-50) U/L Alkaline Phosphatase (38-126) U/L Troponin I (0.000-0.034) ng/mL NT-Pro-B Natriuret Pep (0-1800) pg/mL Serum Total Protein (6.3-8.2) g/dL Albumin (3.5-5.0) g/dL Influenza Type A Ag (NEGATIVE) Influenza Type B Ag (NEGATIVE) RSV (PCR) (Negative) SARS-CoV-2 (PCR) (NEGATIVE) - Radiology Impressions Radiology Exams & Impressions: Radiology Procedures Category Date Time Status CHEST 1 VIEW (PORTABLE) Stat Exams 01/06/21 16:26 Completed CHEST WITHOUT CONTRAST [CT] Stat Exams 01/06/21 17:10 Completed - Other Procedures and Tests Respiratory Therapy 01/06/21 22:35 Oxygen Nasal Cannula 2 lpm 01/06/21 22:36 Respiratory Therapy Assessment DAILY Assessment/Plan (1) CHF (congestive heart failure) Current Visit: Yes Status: Acute Qualifiers: Heart failure type: combined systolic and diastolic Heart failure chronicity: acute on chronic Qualified Code(s): I50.43 - Acute on chronic c ombined systolic (congestive) and diastolic (congestive) heart failure Assessment & Plan: Chief Complaint Diagnosis ACUTE EXAC CHF Allergies Allergy/AdvReac Type Severity Reaction Status Date / Time No Known Drug Allergies Allergy Verified 01/06/21 22:40 Vital Signs (Last 24 hours) Temp Pulse Resp BP BP Pulse Ox 01/07/21 11:14 98 F 61 18 106/57 133/64 98 01/07/21 07:48 97.8 F 54 L 18 113/54 98 01/07/21 06:40 54 L 18 92 L 01/07/21 04:02 64 18 97 01/07/21 04:00 98.2 F 54 L 21 123/66 94 L 01/07/21 00:00 98.1 F 62 16 122/61 97 01/06/21 22:51 67 20 97 01/06/21 21:07 98.6 F 62 20 143/71 97 01/06/21 20:58 98.4 F 62 18 143/71 97 01/06/21 20:54 98.4 F 62 18 143/71 97 01/06/21 19:00 64 21 133/64 100 01/06/21 18:33 98 01/06/21 18:14 63 18 119/75 100 01/06/21 17:08 99.4 F 57 L 20 127/64 98 01/06/21 16:08 99.6 F 65 17 130/68 98 Home Medications Medication Instructions Recorded Confirmed Last Taken Type Albuterol/Ipratropium 3ml Neb* 1 neb Q4HPRN PRN 01/06/21 01/06/21 Unknown History [DUONEB 0.5-3 MG/3 ml Neb] Amiodarone HCl [Pacerone] 200 mg PO DAILY 01/06/21 01/06/21 Unknown History Docusate Sodium 100 mg [Colace 100 mg PO BID 01/06/21 01/06/21 Unknown History 100 MG] Famotidine 20 mg [Pepcid 20 20 mg PO HS 01/06/21 01/06/21 Unknown History MG] Magnesium Chloride 64 mg 64 mg PO HS 01/06/21 01/06/21 Unknown History [Slow-Mag 64 MG] Warfarin Sodium 5 mg [Coumadin 5 mg PO HS 01/06/21 01/06/21 01/06/21 History 5 MG] Current Medications Generic Name Dose Route Start Last Admin Trade Name Freq PRN Reason Stop Dose Admin Albuterol Sulfate 2.5 mg 01/06/21 22:49 01/07/21 04:00 Proventil 2.5 Mg/3 Ml Neb 02/05/21 22:48 2.5 mg Q2H PRN PRN Administration SHORTNESS OF BREATH/WHEEZING Albuterol/Ipratropium 3 ml 01/07/21 07:00 01/07/21 11:22 Duoneb 0.5-3 Mg/3 Ml Neb IH 02/06/21 06:59 Not Given QIDRT TREVOR Albuterol/Ipratropium 3 ml 01/07/21 07:15 Duoneb 0.5-3 Mg/3 Ml Neb IH 02/06/21 07:14 Q4HPRN PRN SHORTNESS OF BREATH Amiodarone HCl 200 mg 01/07/21 10:00 01/07/21 09:02 Cordarone 200 Mg PO 02/06/21 09:59 200 mg DAILY TREVOR Administration Docusate Sodium 100 mg 01/07/21 10:00 01/07/21 09:03 Colace 100 Mg PO 02/06/21 09:59 100 mg BID TREVOR Administration Famotidine 20 mg 01/07/21 22:00 Pepcid 20 Mg PO 02/06/21 21:59 HS TREVOR Ferrous Sulfate 325 mg 01/07/21 22:00 Feosol 325 Mg PO 02/06/21 21:59 HS TREVOR Furosemide 40 mg 01/07/21 10:00 01/07/21 09:01 Lasix 40 Mg/4 Ml IV 02/06/21 09:59 40 mg BID DIURETIC TREVOR Administration Sodium Chloride 1,000 mls @ 30 mls/hr 01/07/21 13:00 Sodium Chloride 0.9% 1000 Ml IV 02/06/21 12:59 .Q24H TREVOR Metoprolol Succinate 25 mg 01/07/21 10:00 01/07/21 09:04 Toprol-Xl 25mg Tablets PO 02/06/21 09:59 Not Given DAILY TREVOR Patient Own Med : 1 each 01/07/21 22:00 Slo-Mag 64 Mg PO 02/06/21 21:59 HS [facility] Potassium Chloride 20 meq 01/07/21 10:00 01/07/21 09:03 Klor Con 10 Meq PO 02/06/21 09:59 20 meq BID TREVOR Administration Sacubitril/Valsartan 0.5 tablet 01/07/21 10:00 01/07/21 09:02 Entresto 49 Mg-51 Mg Tablet PO 02/06/21 09:59 0.5 tablet BID TREVOR Administration Fluticasone/Salmeterol 2 puff 01/07/21 07:00 01/07/21 09:57 Advair Hfa 115/21 Common Canister* IH 02/06/21 06:59 2 puff BIDRT TREVOR Administration Simvastatin 20 mg 01/07/21 22:00 Zocor 20mg PO 02/06/21 21:59 HS TREVOR Warfarin Sodium 5 mg 01/07/21 22:00 Coumadin 5 Mg PO 02/06/21 21:59 HS TREVOR Discontinued Medications Generic Name Dose Route Start Last Admin Trade Name Freq PRN Reason Stop Dose Admin Albuterol Sulfate Confirm 01/06/21 22:43 Proventil 2.5 Mg/3 Ml Neb Administered 01/06/21 22:44 Dose 2.5 mg IH .STK-MED ONE Enoxaparin Sodium 90 mg 01/06/21 18:46 01/06/21 18:50 Enoxaparin Sodium SQ 01/06/21 18:47 90 mg STAT ONE Administration Enoxaparin Sodium Confirm 01/06/21 18:48 Enoxaparin Sodium Administered 01/06/21 18:49 Dose 120 mg SQ .STK-MED ONE Furosemide 40 mg 01/06/21 18:31 01/06/21 18:33 Lasix 40 Mg/4 Ml IV 01/06/21 18:32 40 mg STAT ONE Administration Furosemide Confirm 01/06/21 18:32 Lasix 40 Mg/4 Ml Administered 01/06/21 18:33 Dose 40 mg .ROUTE .STK-MED ONE Warfarin Sodium 5 mg 01/06/21 18:43 01/06/21 18:46 Coumadin 5 Mg PO 01/06/21 18:44 Not Given ONCE ONE Intake & Output (Last 24 hours) 01/05/21 01/06/21 01/07/21 01/08/21 11:59 11:59 11:59 11:59 Intake Total 1140 Output Total 1875 Balance -735 Weight 88.5 kg Laboratory Results (Last 24 hours) 01/07/21 01/07/21 01/07/21 04:38 04:20 04:20 WBC RBC Hgb Hct MCV MCH MCHC RDW Plt Count MPV Segmented Neutrophils Lymphocytes (Manual) Monocytes (Manual) Eosinophils (Manual) Basophils (Manual) Hypochromia Platelet Estimate RBC Morphology Anisocytosis PT 17.0 H INR 1.50 APTT Sodium 137 Potassium 3.8 D Chloride 92 L Carbon Dioxide 38 H Anion Gap 10.8 BUN 25 H Creatinine 1.70 H Estimated GFR 41.6 Glucose 117 H Lactic Acid Calcium 9.1 Total Bilirubin AST ALT Alkaline Phosphatase Troponin I 0.019 NT-Pro-B Natriuret Pep 4000 H Serum Total Protein Albumin Influenza Type A Ag Influenza Type B Ag RSV (PCR) SARS-CoV-2 (PCR) 01/07/21 01/07/21 01/06/21 04:00 01:38 22:35 WBC 5.3 RBC 3.54 L Hgb 9.9 L Hct 34.1 L MCV 96.3 MCH 28.0 MCHC 29.0 L RDW 16.7 H Plt Count 115 L MPV 10.3 Segmented Neutrophils Lymphocytes (Manual) Monocytes (Manual) Eosinophils (Manual) Basophils (Manual) Hypochromia Platelet Estimate RBC Morphology Anisocytosis PT INR APTT Sodium Potassium Chloride Carbon Dioxide Anion Gap BUN Creatinine Estimated GFR Glucose Lactic Acid Calcium Total Bilirubin AST ALT Alkaline Phosphatase Troponin I 0.017 0.015 NT-Pro-B Natriuret Pep Serum Total Protein Albumin Influenza Type A Ag Influenza Type B Ag RSV (PCR) SARS-CoV-2 (PCR) 01/06/21 01/06/21 01/06/21 19:44 19:00 16:47 WBC RBC Hgb Hct MCV MCH MCHC RDW Plt Count MPV Segmented Neutrophils Lymphocytes (Manual) Monocytes (Manual) Eosinophils (Manual) Basophils (Manual) Hypochromia Platelet Estimate RBC Morphology Anisocytosis PT INR APTT Sodium Potassium Chloride Carbon Dioxide Anion Gap BUN Creatinine Estimated GFR Glucose Lactic Acid 1.6 Calcium Total Bilirubin AST ALT Alkaline Phosphatase Troponin I < 0.012 NT-Pro-B Natriuret Pep Serum Total Protein Albumin Influenza Type A Ag NEGATIVE Influenza Type B Ag NEGATIVE RSV (PCR) NEGATIVE SARS-CoV-2 (PCR) NEGATIVE 01/06/21 01/06/21 01/06/21 16:25 15:25 15:25 WBC RBC Hgb Hct MCV MCH MCHC RDW Plt Count MPV Segmented Neutrophils Lymphocytes (Manual) Monocytes (Manual) Eosinophils (Manual) Basophils (Manual) Hypochromia Platelet Estimate RBC Morphology Anisocytosis PT 16.2 H INR 1.43 APTT 34.8 Sodium 140 Potassium 5.1 Chloride 95 L Carbon Dioxide 37 H Anion Gap 13.1 BUN 25 H Creatinine 1.74 H Estimated GFR 40.5 Glucose 93 Lactic Acid Calcium 9.4 Total Bilirubin 0.50 AST 25 ALT 24 Alkaline Phosphatase 141 H Troponin I < 0.012 NT-Pro-B Natriuret Pep 3060 H Serum Total Protein 7.1 Albumin 4.1 Influenza Type A Ag Influenza Type B Ag RSV (PCR) SARS-CoV-2 (PCR) 01/06/21 15:25 WBC 5.9 RBC 3.81 L Hgb 10.5 L Hct 36.6 L MCV 96.1 MCH 27.6 MCHC 28.7 L RDW 16.7 H Plt Count 115 L MPV 10.4 Segmented Neutrophils 74 H Lymphocytes (Manual) 15 L Monocytes (Manual) 6 Eosinophils (Manual) 4 H Basophils (Manual) 1 Hypochromia RARE Platelet Estimate DECREASED RBC Morphology ABNORMAL Anisocytosis 1+ PT INR APTT Sodium Potassium Chloride Carbon Dioxide Anion Gap BUN Creatinine Estimated GFR Glucose Lactic Acid Calcium Total Bilirubin AST ALT Alkaline Phosphatase Troponin I NT-Pro-B Natriuret Pep Serum Total Protein Albumin Influenza Type A Ag Influenza Type B Ag RSV (PCR) SARS-CoV-2 (PCR) Orders (Last 24 hours) Category Date Time Status Bedrest ROUTINE Activity 01/06/21 18:40 Active Admission Status Change [Change to Full Admit] ROUTINE Care 01/07/21 12:20 Active Code Status Order ROUTINE Care 01/06/21 18:41 Active EKG-ER Only STAT Care 01/06/21 16:25 Completed IV Care Q6H Care 01/06/21 18:41 Active Implement CHF Pathway ROUTINE Care 01/06/21 18:41 Active Miscellaneous Nursing Order ROUTINE Care 01/07/21 09:[address] in Observation ROUTINE Care 01/06/21 18:41 Active Telemetry q6h Care 01/06/21 18:40 Active Vital Signs Q4H Care 01/06/21 18:41 Active Weight,Daily 0600 Care 01/06/21 18:41 Active Consult Cardiology ROUTINE Cons 01/07/21 12:57 Active Home Improvement Contractor/Discharge Plan ROUTINE Cons 01/06/21 21:52 Active House Regular Diet Diet 01/07/21 Lunch Active Nutritional Admission Screen ONCE Diet 01/06/21 21:52 Completed Discharge Planning,Consult Routine Discharge 01/07/21 Active CHEST 1 VIEW (PORTABLE) Stat Exams 01/06/21 16:26 Completed CHEST WITHOUT CONTRAST [CT] Stat Exams 01/06/21 17:10 Completed BMP AM.LAB Lab 01/07/21 04:20 Completed CBC AM.LAB Lab 01/07/21 04:00 Completed CBC AM.LAB Lab 01/08/21 04:00 Ordered CBC W DIFF Stat Lab 01/06/21 15:25 Completed CMP AM.LAB Lab 01/08/21 04:00 Ordered CMP Stat Lab 01/06/21 15:25 Completed Lactic Acid Stat Lab 01/06/21 16:47 Completed Manual Differential NC Stat Lab 01/06/21 15:25 Completed NT PRO BNP AM.LAB Lab 01/07/21 04:20 Completed NT PRO BNP Stat Lab 01/06/21 15:25 Completed PROTIME WITH INR Stat Lab 01/06/21 16:25 Completed PT INR [PROTIME WITH INR] DAILY Lab 01/08/21 04:00 Ordered PT INR [PROTIME WITH INR] DAILY Lab 01/09/21 04:00 Ordered PT INR [PROTIME WITH INR] DAILY Lab 01/10/21 04:00 Ordered PT INR [PROTIME WITH INR] Routine Lab 01/07/21 04:38 Completed PTT Stat Lab 01/06/21 16:25 Completed TROPONIN Q3H Lab 01/06/21 15:25 Completed TROPONIN Q3H Lab 01/06/21 19:44 Completed TROPONIN Q3H Lab 01/06/21 22:35 Completed TROPONIN Q3H Lab 01/07/21 01:38 Completed TROPONIN Q3H Lab 01/07/21 04:20 Completed Albuterol 2.5 mg/3 ml Neb [Proventil 2.5 mg/3 ml Neb Med 01/06/21 22:43 Discontinued ] 2.5 mg IH .STK-MED ONE Albuterol 2.5 mg/3 ml Neb [Proventil 2.5 mg/3 ml Neb Med 01/06/21 22:49 Ac tive ] 2.5 mg IH Q2H PRN PRN Albuterol/Ipratropium 3ml Neb* [DUONEB 0.5-3 MG/3 ml Med 01/07/21 07:15 Active Neb] 3 ml IH Q4HPRN PRN Albuterol/Ipratropium 3ml Neb* [DUONEB 0.5-3 MG/3 ml Med 01/07/21 07:00 Active Neb] 3 ml IH QIDRT Amiodarone HCl 200 mg [Cordarone 200 MG] Med 01/07/21 10:00 Active 200 mg PO DAILY Docusate Sodium 100 mg [Colace 100 MG] Med 01/07/21 10:00 Active 100 mg PO BID Enoxaparin Sodium [Enoxaparin Sodium] Med 01/06/21 18:48 Discontinued 120 mg SQ .STK-MED ONE Enoxaparin Sodium [Enoxaparin Sodium] Med 01/06/21 18:46 Discontinued 90 mg SQ STAT ONE Famotidine 20 mg [Pepcid 20 MG] Med 01/07/21 22:00 Active 20 mg PO HS Ferrous Sulfate 325 mg [Feosol 325 mg] Med 01/07/21 22:00 Active 325 mg PO HS Fluticasone/Salmeterol [Advair Hfa Common Med 01/07/21 07:00 Active canister*] 2 puff IH BIDRT Furosemide 40 mg/4 ml [Lasix 40 MG/4 ML] Med 01/06/21 18:32 Discontinued 40 mg .ROUTE .STK-MED ONE Furosemide 40 mg/4 ml [Lasix 40 MG/4 ML] Med 01/07/21 10:00 Active 40 mg IV BID DIURETIC Furosemide 40 mg/4 ml [Lasix 40 MG/4 ML] Med 01/06/21 18:31 Discontinued 40 mg IV STAT ONE Metoprolol Succinate 25 mg Xl* [Toprol-Xl 25MG Tablets* Med 01/07/21 10:00 Active ] 25 mg PO DAILY NaCl 0.9% 1000 ml [Sodium Chloride 0.9% 1000 ML] 1,000 Med 01/07/21 13:00 Active ml IV 30 mls/hr Patient Own Med [Patient Own Medication] Med 01/07/21 22:00 Active 1 each PO HS Potassium Chloride 10 Meq Tab* [Klor Con 10 MEQ] Med 01/07/21 10:00 Active 20 meq PO BID Sacubitril/Valsartan [Entresto 49 mg-51 mg Tablet] Med 01/07/21 10:00 Active 0.5 tablet PO BID Simvastatin 20Mg [Zocor 20Mg] Med 01/07/21 22:00 Active 20 mg PO HS Warfarin Sodium 5 mg [Coumadin 5 MG] Med 01/07/21 22:00 Active 5 mg PO HS Warfarin Sodium 5 mg [Coumadin 5 MG] Med 01/06/21 18:43 Discontinued 5 mg PO ONCE ONE OT Screen per Nursing Assess ONCE OT 01/06/21 21:52 Active PT Screen per Nursing Assess ONCE PT 01/06/21 21:52 Completed EKG IN AM RT 01/07/21 06:00 Completed Oxygen Nasal Cannula 2 lpm RT 01/06/21 22:35 Active Pulse Oximetry .spot check RT 01/06/21 23:08 Active RT Screen per Nursing Assess ONCE RT 01/06/21 21:52 Completed Respiratory Therapy Assessment DAILY RT 01/06/21 22:36 Active Patient Care Notes (Last 24 hours) 01/07/21 12:20 (created 01/07/21 12:52) Case Management Note by Bertha Price DR. ROUNDED AND EVALUATED, DISCUSSED DX EXAC CHF AND TREATMENT, ORDER TO ADMIT TO INPATIENT, START IVF NS @ [facility], HAVE DR. REYNA CONSULT, CONTINUE WITH IV LASIX, SUPPLEMENTAL OXYGEN AND ORDERED CBC AND CMP IN AM. Initialized on 01/07/21 12:52 - END OF NOTE 01/07/21 10:43 Case Management Note by Anca Flores PATIENT HAS [facility]. THEY WERE NOTIFIED PATIENT IS HERE. THEY WILL CALLED AT TIME OF DC AT [phone]. THEY WILL ALSO NEED FAXED THE DC INSTRUCTIONS, DC MED LIST AND DC SUMMARY (IF AVAILABLE) TO [phone] Initialized on 01/07/21 10:43 - END OF NOTE Code(s): I50.9 - HEART FAILURE, UNSPECIFIED (2) COPD (chronic obstructive pulmonary disease) Current Visit: Yes Status: Acute (3) Atrial fibrillation Current Visit: Yes Status: Chronic Qualifiers: Code(s): I48.91 - UNSPECIFIED ATRIAL FIBRILLATION (4) Hypertension Current Visit: No Status: Acute Qualifiers: Code(s): I10 - ESSENTIAL (PRIMARY) HYPERTENSION
[2021-01-07] MEDS: Sodium Chloride 0.9% 1000 ML 1,000 ML IV SCH (14:16)
[2021-01-07] MEDS: Coumadin 5 MG PO SCH (21:32)
[2021-01-07] MEDS: FEOSOL 325 MG PO SCH (21:33)
[2021-01-07] MEDS: ZOCOR 20MG PO SCH (21:33)
[2021-01-07] MEDS: Pepcid 20 MG PO SCH (21:33)
[2021-01-07] MEDS: PATIENT OWN MEDICATION PO SCH (21:35)
[2021-01-07] MEDS ORDERED: MAGNESIUM CHLORIDE 64 MG PO SCH (22:00)
[2021-01-07] MEDS ORDERED: NON-FORMULARY ITEM (Pravastatin Sodium [Pravachol] 20 MG) PO SCH (22:00)
[2021-01-08 04:41] LABS: Hematocrit 32.8 % (42-50); Hemoglobin 9.6 gm/dl (12.5-18.0); Mean Cell Volume 94.8 fl (78-100); Mean Corpuscular Hemoglobin 27.7 pg (26-32); Mean Corpuscular Hgb Concent. 29.3 g/dl (32-36); Mean Platelet Volume 10.2 fl (7.5-11.0); Platelet Count 112 K/mm3 (150-450); Red Blood Count 3.46 M/mm3 (4.1-5.6); Red Cell Distribution Width 16.8 % (11.5-14.0); White Blood Count 5.2 K/mm3 (4.0-10.5)
[2021-01-08 04:54] LABS: ALBUMIN 3.7 g/dL (3.5-5.0); ANION GAP 7.9 MEQ/L (5-15); BILIRUBIN,TOTAL 0.7 mg/dL (0.2-1.3); Calcium 8.9 mg/dL (8.4-10.2); Creatinine 1 1.76 mg/dL (0.66-1.25); Potassium 4.1 mmol/L (3.5-5.1); Total Protein 6.7 g/dL (6.3-8.2)
[2021-01-08 05:06] LABS: INR 1.55 (0.8-3.0); PROTIME 17.6 SECONDS (8.83-12.87)
[2021-01-08] MEDS: DUONEB 0.5-3 MG/3 ml Neb IH SCH ×4 (06:50→19:27)
[2021-01-08] MEDS: Advair Hfa 115/21 Common canister IH SCH ×2 (06:50→19:27)
[2021-01-08] MEDS: ENTRESTO 49 MG-51 MG TABLET PO SCH ×2 (10:47→21:50)
[2021-01-08] MEDS: Cordarone 200 MG PO SCH (10:48)
[2021-01-08] MEDS: Colace 100 MG PO SCH ×2 (10:48→21:51)
[2021-01-08] MEDS: Klor Con 10 MEQ PO SCH ×2 (10:48→21:51)
[2021-01-08] MEDS: Lasix 40 MG/4 ML IV SCH ×2 (10:50→16:47)
[2021-01-08] MEDS: Toprol-Xl 25MG Tablets PO SCH (10:50)
--- NOTE | 2021-01-08 13:57 | PCM.NOTE ---
Date and Time: 01/08/21 1356 Subjective Assessment: doing better - Review of Systems Constitutional: No Fever, No Chills Eyes: No Symptoms Ears, Nose, & Throat: No Symptoms Respiratory: No Cough, No Short Of Breath Cardiac: No Chest Pain, No Edema, No Syncope Abdominal/Gastrointestinal: No Abdominal Pain, No Nausea, No Vomiting, No Diarrhea Genitourinary Symptoms: No Dysuria Musculoskeletal: No Back Pain, No Neck Pain Skin: No Rash Neurological: No Dizziness, No Focal Weakness, No Sensory Changes Psychological: No Symptoms Endocrine: No Symptoms Hematologic/Lymphatic: No Symptoms Immunological/Allergic: No Symptoms Objective Exam General Appearance: no apparent distress, alert Neurologic Exam: alert, oriented x 3, cooperative, normal mood/affect, nml cerebellar function, sensation nml, No motor deficits Skin Exam: normal color, warm, dry Eye Exam: PERRL, EOMI, eyes nml inspection Ears, Nose, Throat Exam: normal ENT inspection, pharynx normal, moist mucous membranes Neck Exam: normal inspection, non-tender, supple, full range of motion Respiratory Exam: normal breath sounds, lungs clear, No respiratory distress Cardiovascular Exam: regular rate/rhythm, normal heart sounds Gastrointestinal/Abdomen Exam: soft, No tenderness, No mass Extremity Exam: normal inspection, normal range of motion Back Exam: normal inspection, normal range of motion, No CVA tenderness, No vertebral tenderness Male Genitalia Exam: deferred Rectal Exam: deferred OBJECTIVE DATA Vital Signs: Vital Signs - 24 hr Temp Pulse Resp BP BP Pulse Ox 01/08/21 11:44 98.9 F 71 16 105/55 95 01/08/21 10:30 86 20 95 01/08/21 07:29 98.6 F 68 16 110/56 97 01/08/21 06:52 68 16 97 01/08/21 04:15 98.9 F 67 22 111/53 96 01/07/21 23:42 99.1 F 57 L 22 97/51 97 01/07/21 20:02 98.7 F 51 L 20 97/46 96 01/07/21 19:32 58 L 18 97 01/07/21 16:00 98.3 F 58 L 16 129/60 92 L 01/07/21 15:23 53 L 18 98 Pain Assessment - Last Documented Pain Intensity 5 Intake and Output: Intake & Output 04/1201/07/21 01/08/21 01/09/21 11:59 11:59 11:59 11:59 Intake Total 1140 2386 Output Total 1875 1000 750 Balance -735 1386 -750 Weight 88.5 kg 88 kg Lab Results: Lab Results-Last 24 Hours 01/08/21 01/08/21 01/08/21 Range/Units 04:15 04:15 04:15 WBC 5.2 (4.0-10.5) K/mm3 RBC 3.46 L (4.1-5.6) M/mm3 Hgb 9.6 L (12.5-18.0) gm/dl Hct 32.8 L (42-50) % MCV 94.8 (78-100) fl MCH 27.7 (26-32) pg MCHC 29.3 L (32-36) g/dl RDW 16.8 H (11.5-14.0) % Plt Count 112 L (150-450) K/mm3 MPV 10.2 (7.5-11.0) fl PT 17.6 H (8.83-12.87) SECONDS INR 1.55 (0.8-3.0) Sodium 137 (137-145) mmol/L Potassium 4.1 (3.5-5.1) mmol/L Chloride 93 L (98-107) mmol/L Carbon Dioxide 39 H (22-30) mmol/L Anion Gap 7.9 (5-15) MEQ/L BUN 25 H (9-20) mg/dL Creatinine 1.76 H (0.66-1.25) mg/dL Estimated GFR 40.0 ML/MIN Glucose 90 (74-106) mg/dL Calcium 8.9 (8.4-10.2) mg/dL Total Bilirubin 0.70 (0.2-1.3) mg/dL AST 24 (17-59) U/L ALT 19 (0-50) U/L Alkaline Phosphatase 127 H (38-126) U/L Serum Total Protein 6.7 (6.3-8.2) g/dL Albumin 3.7 (3.5-5.0) g/dL Radiology Exams: Radiology Procedures Category Date Time Status CHEST 1 VIEW (PORTABLE) Stat Exams 01/06/21 16:26 Completed CHEST WITHOUT CONTRAST [CT] Stat Exams 01/06/21 17:10 Completed Multi-Disciplinary Progress Notes: Multi-Disciplinary Progress Notes 01/08/21 09:50 Case Management Note by Anca Flores PATIENT STILL REQUIRING ACUTE CARE- WILL CONTINUE TO FOLLOW Initialized on 01/08/21 09:50 - END OF NOTE 01/08/21 09:36 Case Management Note by Anca Flores C[facility]IO PUL[facility] RE[facility] REFERRAL TAKEN TO [facility] THIS AM Initialized on 01/08/21 09:36 - END OF NOTE Assessment/Plan (1) CHF (congestive heart failure) Current Visit: Yes Status: Acute Qualifiers: Heart failure type: combined systolic and diastolic Heart failure [employer] nicity: acute on chronic Qualified Code(s): I50.43 - Acute on chronic combined systolic (congestive) and diastolic (congestive) heart failure Assessment & Plan: Last Vital Signs Temp 98.9 F 01/08/21 11:44 Pulse 71 01/08/21 11:44 Resp 16 01/08/21 11:44 BP 105/55 01/08/21 11:44 Pulse Ox 95 01/08/21 11:44 Allergies No Known Drug Allergies Allergy (Verified 01/06/21 22:40) Active Medications Albuterol Sulfate (Proventil 2.5 Mg/3 Ml Neb) 2.5 mg IH Q2H PRN PRN PRN Reason: SHORTNESS OF BREATH/WHEEZING Stop: 02/05/21 22:48 Last Admin: 01/07/21 04:00 Dose: 2.5 mg Documented by: Albuterol/Ipratropium (Duoneb 0.5-3 Mg/3 Ml Neb) 3 ml IH QIDRT [facility] Stop: 02/06/21 06:59 Last Admin: 01/08/21 10:30 Dose: 3 ml Documented by: Albuterol/Ipratropium (Duoneb 0.5-3 Mg/3 Ml Neb) 3 ml IH Q4HPRN PRN PRN Reason: SHORTNESS OF BREATH Stop: 02/06/21 07:14 Amiodarone HCl (Cordarone 200 Mg) 200 mg PO DAILY [facility] Stop: 02/06/21 09:59 Last Admin: 01/08/21 10:48 Dose: 200 mg Documented by: Docusate Sodium (Colace 100 Mg) 100 mg PO BID [facility] Stop: 02/06/21 09:59 Last Admin: 01/08/21 10:48 Dose: 100 mg Documented by: Famotidine (Pepcid 20 Mg) 20 mg PO HS [facility] Stop: 02/06/21 21:59 Last Admin: 01/07/21 21:33 Dose: 20 mg Documented by: Ferrous Sulfate (Feosol 325 Mg) 325 mg PO HS [facility] Stop: 02/06/21 21:59 Last Admin: 01/07/21 21:33 Dose: 325 mg Documented by: Furosemide (Lasix 40 Mg/4 Ml) 40 mg IV BID [facility] Stop: 02/06/21 09:59 Last Admin: 01/08/21 10:50 Dose: 40 mg Documented by: Sodium Chloride (Sodium Chloride 0.9% 1000 Ml) 1,000 mls @ 30 mls/hr IV .Q24H [facility] Stop: 02/06/21 12:59 Last Admin: 01/07/21 14:16 Dose: 30 mls/hr Documented by: Metoprolol Succinate (Toprol-Xl 25mg Tablets) 25 mg PO DAILY [facility] Stop: 02/06/21 09:59 Last Admin: 01/08/21 10:50 Dose: Not Given Documented by: Patient Own Med : (Slo-Mag 64 Mg) 1 each PO HS [facility] Stop: 02/06/21 21:59 Last Admin: 01/07/21 21:35 Dose: 1 each Documented by: Potassium Chloride (Klor Con 10 Meq) 20 meq PO BID [facility] Stop: 02/06/21 09:59 Last Admin: 01/08/21 10:48 Dose: 20 meq Documented by: Sacubitril/Valsartan (Entresto 49 Mg-51 Mg Tablet) 0.5 tablet PO BID [facility] Stop: 02/06/21 09:59 Last Admin: 01/08/21 10:47 Dose: 0.5 tablet Documented by: Fluticasone/Salmeterol (Advair Hfa 115/ Common Canister*) 2 puff IH BIDRT [facility] Stop: 02/06/21 06:59 Last Admin: 01/08/21 06:50 Dose: 2 puff Documented by: Simvastatin (Zocor 20mg) 20 mg PO HS [facility] Stop: 02/06/21 21:59 Last Admin: 01/07/21 21:33 Dose: 20 mg Documented by: Warfarin Sodium (Coumadin 5 Mg) 5 mg PO HS [facility] Stop: 02/06/21 21:59 Last Admin: 01/07/21 21:32 Dose: 5 mg Documented by: Intake & Output 01/08/21 01/09/21 11:59 11:59 Intake Total 2386 Output Total 1000 750 Balance 1386 -750 Weight 88 kg Orders 01/07/21 12:57 Consult Cardiology ROUTINE 01/07/21 13:00 NaCl 0.9% 1000 ml [Sodium Chloride 0.9% 1000 ML] 1,000 ml IV 30 mls/hr 01/07/21 22:00 Famotidine 20 mg [Pepcid 20 MG] 20 mg PO HS Ferrous Sulfate 325 mg [Feosol 325 mg] 325 mg PO HS Patient Own Med [Patient Own Medication] 1 each PO HS Simvastatin 20Mg [Zocor 20Mg] 20 mg PO HS Warfarin Sodium 5 mg [Coumadin 5 MG] 5 mg PO HS 01/09/21 04:00 PT INR [PROTIME WITH INR] DAILY 01/10/21 04:00 PT INR [PROTIME WITH INR] DAILY Lab Tests 01/08/21 01/08/21 01/08/21 04:15 04:15 04:15 WBC 5.2 RBC 3.46 L Hgb 9.6 L Hct 32.8 L MCV 94.8 MCH 27.7 MCHC 29.3 L RDW 16.8 H Plt Count 112 L MPV 10.2 PT 17.6 H INR 1.55 Sodium 137 Potassium 4.1 Chloride 93 L Carbon Dioxide 39 H Anion Gap 7.9 BUN 25 H Creatinine 1.76 H Estimated GFR 40.0 Glucose 90 Calcium 8.9 Total Bilirubin 0.70 AST 24 ALT 19 Alkaline Phosphatase 127 H Serum Total Protein 6.7 Albumin 3.7 Code(s): I50.9 - HEART FAILURE, UNSPECIFIED (2) COPD (chronic obstructive pulmonary disease) Current Visit: Yes Status: Acute (3) Atrial fibrillation Current Visit: Yes Status: Chronic Qualifiers: Code(s): I48.91 - UNSPECIFIED ATRIAL FIBRILLATION (4) Hypertension Current Visit: No Status: Acute Qualifiers: Code(s): I10 - ESSENTIAL (PRIMARY) HYPERTENSION
[2021-01-08] MEDS: Sodium Chloride 0.9% 1000 ML 1,000 ML IV SCH (14:56)
[2021-01-08] MEDS: PATIENT OWN MEDICATION PO SCH (21:50)
[2021-01-08] MEDS: FEOSOL 325 MG PO SCH (21:51)
[2021-01-08] MEDS: Pepcid 20 MG PO SCH (21:51)
[2021-01-08] MEDS: ZOCOR 20MG PO SCH (21:51)
[2021-01-08] MEDS: Coumadin 5 MG PO SCH (21:51)
[2021-01-09 05:42] LABS: INR 1.64 (0.8-3.0); PROTIME 18.6 SECONDS (8.83-12.87)
[2021-01-09] MEDS: Advair Hfa 115/21 Common canister IH SCH ×2 (06:38→19:39)
[2021-01-09] MEDS: DUONEB 0.5-3 MG/3 ml Neb IH SCH ×4 (06:38→19:39)
[2021-01-09] MEDS: Colace 100 MG PO SCH ×2 (09:48→21:08)
[2021-01-09] MEDS: Toprol-Xl 25MG Tablets PO SCH (09:48)
[2021-01-09] MEDS: Klor Con 10 MEQ PO SCH ×2 (09:48→21:09)
[2021-01-09] MEDS: ENTRESTO 49 MG-51 MG TABLET PO SCH ×2 (09:48→21:08)
[2021-01-09] MEDS: Cordarone 200 MG PO SCH (09:48)
[2021-01-09] MEDS: Lasix 40 MG/4 ML IV SCH ×2 (09:49→16:41)
--- NOTE | 2021-01-09 11:52 | PCM.NOTE ---
Date and Time: 01/09/21 1151 Subjective Assessment: doing better, - Review of Systems Constitutional: No Fever, No Chills Eyes: No Symptoms Ears, Nose, & Throat: No Symptoms Respiratory: No Cough, No Short Of Breath Cardiac: Edema, Palpitations, Orthopnea, PND, No Chest Pain, No Syncope Abdominal/Gastrointestinal: No Abdominal Pain, No Nausea, No Vomiting, No Diarrhea Genitourinary Symptoms: No Dysuria Musculoskeletal: No Back Pain, No Neck Pain Skin: No Rash Neurological: No Dizziness, No Focal Weakness, No Sensory Changes Psychological: No Symptoms Endocrine: No Symptoms Hematologic/Lymphatic: No Symptoms Immunological/Allergic: No Symptoms Objective Exam General Appearance: no apparent distress, alert Neurologic Exam: alert, oriented x 3, cooperative, normal mood/affect, nml cerebellar function, sensation nml, No motor deficits Skin Exam: normal color, warm, dry Eye Exam: PERRL, EOMI, eyes nml inspection Ears, Nose, Throat Exam: normal ENT inspection, pharynx normal, moist mucous membranes Neck Exam: normal inspection, non-tender, supple, full range of motion Respiratory Exam: crackles/rales, rhonchi, wheezing, No respiratory distress Cardiovascular Exam: regular rate/rhythm, normal heart sounds Gastrointestinal/Abdomen Exam: soft, No tenderness, No mass Extremity Exam: normal inspection, normal range of motion Back Exam: normal inspection, normal range of motion, No CVA tenderness, No vertebral tenderness Male Genitalia Exam: deferred Rectal Exam: deferred OBJECTIVE DATA Vital Signs: Vital Signs - 24 hr Temp Pulse Resp BP BP Pulse Ox 01/09/21 11:14 98.8 F 69 24 129/59 97 01/09/21 10:47 82 24 95 01/09/21 07:07 98.8 F 75 22 116/55 98 01/09/21 06:39 75 22 98 01/09/21 04:15 98.8 F 68 22 115/56 96 01/09/21 00:00 98.4 F 72 22 119/57 97 01/08/21 19:48 98.6 F 75 18 114/56 95 01/08/21 19:27 70 18 97 01/08/21 16:00 98.3 F 75 16 107/52 97 01/08/21 14:30 72 20 96 Pain Assessment - Last Documented Pain Intensity 0 Intake and Output: Intake & Output 01/06/21 01/07/21 01/08/21 01/09/21 11:59 11:59 11:59 11:59 Intake Total 1140 2386 1581 Output Total 1875 1000 3250 Balance -735 1386 -1669 Weight 88.5 kg 88 kg 88.6 kg Lab Results: Lab Results-Last 24 Hours 01/09/21 Range/Units 04:55 PT 18.6 H (8.83-12.87) SECONDS INR 1.64 (0.8-3.0) Multi-Disciplinary Progress Notes: Multi-Disciplinary Progress Notes 01/09/21 10:19 Case Management Note by Anca Flores DR. WOULD LIKE FOR PATIENT TO SWING FOR PT BEFORE RETURNING HOME. S/W PATIENT ABOUT THIS, EXPLAINED THE SWINGBED PROGRAM TO HIM. HE REPORTS SHE HAS C THAT COMES IN ABOUT DAILY SO HE IS NOT SURE HE SEES THE NEED TO STAY. HE WOULD LIKE TO THINK ABOUT IT AND TALK WITH HIS FAMILY. WILL FOLLOW UP TO SEE WHAT PATIENT DECIDES. Initialized on 01/09/21 10:19 - END OF NOTE Assessment/Plan (1) CHF (congestive heart failure) Current Visit: Yes Status: Acute Qualifiers: Heart failure type: combined systolic and diastolic Heart failure chronicity: acute on chronic Qualified Code(s): I50.43 - Acute on chronic combined systolic (congestive) and diastolic (congestive) heart failure Assessment & Plan: Chief Complaint Diagnosis c/o shortness of breath Allergies Allergy/AdvReac Type Severity Reaction Status Date / Time No Known Drug Allergies Allergy Verified 01/06/21 22:40 Vital Signs (Last 24 hours) Temp Pulse Resp BP BP Pulse Ox 01/09/21 11:14 98.8 F 69 24 129/59 97 01/09/21 10:47 82 24 95 01/09/21 07:07 98.8 F 75 22 116/55 98 01/09/21 06:39 75 22 98 01/09/21 04:15 98.8 F 68 22 115/56 96 01/09/21 00:00 98.4 F 72 22 119/57 97 01/08/21 19:48 98.6 F 75 18 114/56 95 01/08/21 19:27 70 18 97 01/08/21 16:00 98.3 F 75 16 107/52 97 01/08/21 14:30 72 20 96 Home Medications Medication Instructions Recorded Confirmed Last Taken Type Albuterol/Ipratropium 3ml Neb* 1 neb IH Q4HPRN PRN 01/06/21 01/06/21 Unknown History [DUONEB 0.5-3 MG/3 ml Neb] Amiodarone HCl [Pacerone] 200 mg PO DAILY 01/06/21 01/06/21 Unknown History Docusate Sodium 100 mg [Colace 100 mg PO BID 01/06/21 01/06/21 Unknown History 100 MG] Famotidine 20 mg [Pepcid 20 20 mg PO HS 01/06/21 01/06/21 Unknown History MG] Magnesium Chloride 64 mg 64 mg PO 01/06/21 01/06/21 Unknown History [Slow-Mag 64 MG] Warfarin Sodium 5 mg [Coumadin 5 mg PO HS 01/06/21 01/06/21 01/06/21 History 5 MG] Current Medications Generic Name Dose Route Start Last Admin Trade Name Freq PRN Reason Stop Dose Admin Albuterol Sulfate 2.5 mg 01/06/21 22:49 01/07/21 04:00 Proventil 2.5 Mg/3 Ml Neb IH 02/05/21 22:48 2.5 mg Q2H PRN PRN Administration SHORTNESS OF BREATH/WHEEZING Albuterol/Ipratropium 3 ml 01/07/21 07:00 01/09/21 10:40 Duoneb 0.5-3 Mg/3 Ml Neb IH 02/06/21 06:59 3 ml QIDRT [facility] Administration Albuterol/Ipratropium 3 ml 01/07/21 07:15 Duoneb 0.5-3 Mg/3 Ml Neb 02/06/21 07:14 Q4HPRN PRN SHORTNESS OF BREATH Amiodarone HCl 200 mg 01/07/21 10:00 01/09/21 09:48 Cordarone 200 Mg PO 02/06/21 09:59 200 mg DAILY [facility] Administration Docusate Sodium 100 mg 01/07/21 10:00 01/09/21 09:48 Colace 100 Mg PO 02/06/21 09:59 100 mg BID [facility] Administration Famotidine 20 mg 01/07/21 22:00 01/08/21 21:51 Pepcid 20 Mg PO 02/06/21 21:59 20 mg HS [facility] Administration Ferrous Sulfate 325 mg 01/07/21 22:00 01/08/21 21:51 Feosol 325 Mg PO 02/06/21 21:59 325 mg HS [facility] Administration Furosemide 40 mg 01/07/21 10:00 01/09/21 09:49 Lasix 40 Mg/4 Ml IV 02/06/21 09:59 40 mg BID DIURETIC [facility] Administration Sodium Chloride 1,000 mls @ 30 mls/hr 01/07/21 13:00 01/08/21 14:56 Sodium Chloride 0.9% 1000 Ml IV 02/06/21 12:59 Not Given .Q24H [facility] Metoprolol Succinate 25 mg 01/07/21 10:00 01/09/21 09:48 Toprol-Xl 25mg Tablets PO 02/06/21 09:59 25 mg DAILY [facility] Administration Patient Own Med : 1 each 01/07/21 22:00 01/08/21 21:50 Slo-Mag 64 Mg PO 02/06/21 21:59 1 each HS [facility] Administration Potassium Chloride 20 meq 01/07/21 10:00 01/09/21 09:48 Klor Con 10 Meq PO 02/06/21 09:59 20 meq BID [facility] Administration Sacubitril/Valsartan 0.5 tablet 01/07/21 10:00 01/09/21 09:48 Entresto 49 Mg-51 Mg Tablet PO 02/06/21 09:59 0.5 tablet BID [facility] Administration Fluticasone/Salmeterol 2 puff 01/07/21 07:00 01/09/21 06:38 Advair Hfa 115/21 Common Canister* IH 02/06/21 06:59 2 puff BIDRT [facility] Administration Simvastatin 20 mg 01/07/21 22:00 01/08/21 21:51 Zocor 20mg PO 02/06/21 21:59 20 mg HS [facility] Administration Warfarin Sodium 5 mg 01/07/21 22:00 01/08/21 21:51 Coumadin 5 Mg PO 02/06/21 21:59 5 mg HS [facility] Administration Discontinued Medications Generic Name Dose Route Start Last Admin Trade Name Tammy PRN Reason Stop Dose Admin Albuterol Sulfate Confirm 01/06/21 22:43 Proventil 2.5 Mg/3 Ml Neb Administered 01/06/21 22:44 Dose 2.5 mg IH .STK-MED ONE Enoxaparin Sodium 90 mg 01/06/21 18:46 01/06/21 18:50 Enoxaparin Sodium SQ 01/06/21 18:47 90 mg STAT ONE Administration Enoxaparin Sodium Confirm 01/06/21 18:48 Enoxaparin Sodium Administered 01/06/21 18:49 Dose 120 mg SQ .STK-MED ONE Furosemide 40 mg 01/06/21 18:31 01/06/21 18:33 Lasix 40 Mg/4 Ml IV 01/06/21 18:32 40 mg STAT ONE Administration Furosemide Confirm 01/06/21 18:32 Lasix 40 Mg/4 Ml Administered 01/06/21 18:33 Dose 40 mg .ROUTE .STK-MED ONE Warfarin Sodium 5 mg 01/06/21 18:43 01/06/21 18:46 Coumadin 5 Mg PO 01/06/21 18:44 Not Given ONCE ONE Intake & Output (Last 24 hours) 01/06/21 01/07/21 01/08/21 01/09/21 11:59 11:59 11:59 11:59 Intake Total 1140 2386 1581 Output Total 1875 1000 3250 Balance -735 1386 -1669 Weight 88.5 kg 88 kg 88.6 kg Laboratory Results (Last 24 hours) 01/09/21 04:55 PT 18.6 H INR 1.64 Orders (Last 24 hours) Category Date Time Status PT INR [PROTIME WITH INR] DAILY Lab 01/09/21 04:55 Completed PT INR [PROTIME WITH INR] DAILY Lab 01/10/21 04:00 Ordered PT INR [PROTIME WITH INR] DAILY Lab 01/11/21 04:00 Ordered PT INR [PROTIME WITH INR] DAILY Lab 01/11/21 04:00 Ordered PT INR [PROTIME WITH INR] DAILY Lab 01/12/21 04:00 Ordered PT INR [PROTIME WITH INR] DAILY Lab 01/13/21 04:00 Ordered PT INR [PROTIME WITH INR] DAILY Lab 01/14/21 04:00 Ordered PT INR [PROTIME WITH INR] DAILY Lab 01/15/21 04:00 Ordered PT INR [PROTIME WITH INR] DAILY Lab 01/16/21 04:00 Ordered PT INR [PROTIME WITH INR] DAILY Lab 01/17/21 04:00 Ordered PT INR [PROTIME WITH INR] DAILY Lab 01/18/21 04:00 Ordered PT Eval & Treat ( Order) ONCE PT 01/09/21 10:30 Active Patient Care Notes (Last 24 hours) 01/09/21 10:19 Case Management Note by Anca Flores DR. WOULD LIKE FOR PATIENT TO SWING FOR PT BEFORE RETURNING HOME. S/W PATIENT ABOUT THIS, EXPLAINED THE SWINGBED PROGRAM TO HIM. HE REPORTS SHE HAS HHC THAT COMES IN ABOUT DAILY SO HE IS NOT SURE HE SEES THE NEED TO STAY. HE WOULD LIKE TO THINK ABOUT IT AND TALK WITH HIS FAMILY. WILL FOLLOW UP TO SEE WHAT PATIENT DECIDES. Initialized on 01/09/21 10:19 - END OF NOTE Code(s): I50.9 - HEART FAILURE, UNSPECIFIED (2) COPD (chronic obstructive pulmonary disease) Current Visit: Yes Status: Acute (3) Atrial fibrillation Current Visit: Yes Status: Chronic Qualifiers: Code(s): I48.91 - UNSPECIFIED ATRIAL FIBRILLATION (4) Hypertension Current Visit: No Status: Acute Qualifiers: Code(s): I10 - ESSENTIAL (PRIMARY) HYPERTENSION
[2021-01-09] MEDS: Sodium Chloride 0.9% 1000 ML 1,000 ML IV SCH (14:45)
[2021-01-09] MEDS: Coumadin 5 MG PO SCH (21:08)
[2021-01-09] MEDS: FEOSOL 325 MG PO SCH (21:09)
[2021-01-09] MEDS: PATIENT OWN MEDICATION PO SCH (21:09)
[2021-01-09] MEDS: Pepcid 20 MG PO SCH (21:10)
[2021-01-09] MEDS: ZOCOR 20MG PO SCH (21:10)
[2021-01-10 05:24] LABS: INR 1.86 (0.8-3.0); PROTIME 21.1 SECONDS (8.83-12.87)
[2021-01-10] MEDS: DUONEB 0.5-3 MG/3 ml Neb IH SCH ×2 (07:04→10:37)
[2021-01-10] MEDS: Advair Hfa 115/21 Common canister IH SCH (07:04)
[2021-01-10 07:55] VITALS: BP 121/58
[2021-01-10] MEDS: Colace 100 MG PO SCH (09:13)
[2021-01-10] MEDS: Cordarone 200 MG PO SCH (09:14)
[2021-01-10] MEDS: ENTRESTO 49 MG-51 MG TABLET PO SCH (09:14)
[2021-01-10] MEDS: Lasix 40 MG/4 ML IV SCH (09:16)
[2021-01-10] MEDS: Klor Con 10 MEQ PO SCH (09:16)
[2021-01-10] MEDS: Toprol-Xl 25MG Tablets PO SCH (09:17)
[2021-01-10 10:28] LABS: ALBUMIN 3.5 g/dL (3.5-5.0); ANION GAP 9.6 MEQ/L (5-15); BILIRUBIN,TOTAL 0.5 mg/dL (0.2-1.3); Calcium 8.3 mg/dL (8.4-10.2); Creatinine 1 1.83 mg/dL (0.66-1.25); EST GLOMERULAR FILTRATION RATE 38.2 ML/MIN; Potassium 4.2 mmol/L (3.5-5.1); Total Protein 6.5 g/dL (6.3-8.2)
[2021-01-10 10:40] VITALS: PULSE 64; O2SAT 96
--- NOTE | 2021-01-10 17:06 | PCM.DS ---
Discharge Summary Date of Admission: 01/07/21 12:20 Admitting Physician: SKYLAR BLEVINS Consults: Consults on Case 01/07/21 12:57 Consult Cardiology ROUTINE Primary Care Provider: SKYLAR BLEVINS Allergies Allergies No Known Drug Allergies Allergy (Verified 01/10/21 10:55) Hospital Summary - Hospital Course Hospital Course: Chief Complaint Diagnosis c/o shortness of breath Allergies Allergy/AdvReac Type Severity Reaction Status Date / Time No Known Drug Allergies Allergy Verified 01/10/21 10:55 Vital Signs (Last 24 hours) Temp Pulse Resp BP BP Pulse Ox 01/10/21 10:39 64 18 96 01/10/21 07:52 97.8 F 59 L 18 121/58 95 01/10/21 07:06 65 20 97 01/10/21 04:00 98.6 F 57 L 24 101/54 97 01/09/21 23:56 98.4 F 61 18 98/57 98 01/09/21 19:41 56 L 18 98 01/09/21 19:39 98.7 F 62 18 121/58 98 Home Medications Medication Instructions Recorded Confirmed Last Taken Type Albuterol/Ipratropium 3ml Neb* 1 neb IH Q4HPRN PRN 01/06/21 01/06/21 Unknown History [DUONEB 0.5-3 MG/3 ml Neb] Amiodarone HCl [Pacerone] 200 mg PO DAILY 01/06/21 01/06/21 Unknown History Docusate Sodium 100 mg [Colace 100 mg PO BID 01/06/21 01/06/21 Unknown History 100 MG] Famotidine 20 mg [Pepcid 20 20 mg PO HS 01/06/21 01/06/21 Unknown History MG] Magnesium Chloride 64 mg 64 mg PO HS 01/06/21 01/06/21 Unknown History [Slow-Mag 64 MG] Warfarin Sodium 5 mg [Coumadin 5 mg PO HS 01/06/21 01/06/21 01/06/21 History 5 MG] Current Medications Discontinued Medications Generic Name Dose Route Start Last Admin Trade Name Freq PRN Reason Stop Dose Admin Albuterol Sulfate Confirm 01/06/21 22:43 Proventil 2.5 Mg/3 Ml Neb Administered 01/06/21 22:44 Dose 2.5 mg IH .STK-MED ONE Albuterol Sulfate 2.5 mg 01/06/21 22:49 01/07/21 04:00 Proventil 2.5 Mg/3 Ml Neb IH 02/05/21 22:48 2.5 mg Q2H PRN PRN Administration SHORTNESS OF BREATH/WHEEZING Albuterol/Ipratropium 3 ml 01/07/21 07:00 01/10/21 10:37 Duoneb 0.5-3 Mg/3 Ml Neb IH 02/06/21 06:59 3 ml QIDRT TREVOR Administration Albuterol/Ipratropium 3 ml 01/07/21 07:15 Duoneb 0.5-3 Mg/3 Ml Neb IH 02/06/21 07:14 Q4HPRN PRN SHORTNESS OF BREATH Amiodarone HCl 200 mg 01/07/21 10:00 01/10/21 09:14 Cordarone 200 Mg PO 02/06/21 09:59 200 mg DAILY TREVOR Administration Docusate Sodium 100 mg 01/07/21 10:00 01/10/21 09:13 Colace 100 Mg PO 02/06/21 09:59 100 mg BID TREVOR Administration Enoxaparin Sodium 90 mg 01/06/21 18:46 01/06/21 18:50 Enoxaparin Sodium SQ 01/06/21 18:47 90 mg STAT ONE Administration Enoxaparin Sodium Confirm 01/06/21 18:48 Enoxaparin Sodium Administered 01/06/21 18:49 Dose 120 mg SQ .STK-MED ONE Famotidine 20 mg 01/07/21 22:00 01/09/21 21:10 Pepcid 20 Mg PO 02/06/21 21:59 20 mg HS TREVOR Administration Ferrous Sulfate 325 mg 01/07/21 22:00 01/09/21 21:09 Feosol 325 Mg PO 02/06/21 21:59 325 mg HS TREVOR Administration Furosemide 40 mg 01/06/21 18:31 01/06/21 18:33 Lasix 40 Mg/4 Ml IV 01/06/21 18:32 40 mg STAT ONE Administration Furosemide Confirm 01/06/21 18:32 Lasix 40 Mg/4 Ml Administered 01/06/21 18:33 Dose 40 mg .ROUTE .STK-MED ONE Furosemide 40 mg 01/07/21 10:00 01/10/21 09:16 Lasix 40 Mg/4 Ml IV 02/06/21 09:59 40 mg BID DIURETIC TREVOR Administration Sodium Chloride 1,000 mls @ 30 mls/hr 01/07/21 13:00 01/09/21 14:45 Sodium Chloride 0.9% 1000 Ml IV 02/06/21 12:59 30 mls/hr .Q24H TREVOR Administration Metoprolol Succinate 25 mg 01/07/21 10:00 01/10/21 09:17 Toprol-Xl 25mg Tablets PO 02/06/21 09:59 25 mg DAILY TREVOR Administration Patient Own Med : 1 each 01/07/21 22:00 01/09/21 21:09 Slo-Mag 64 Mg PO 02/06/21 21:59 1 each HS TREVOR Administration Potassium Chloride 20 meq 01/07/21 10:00 01/10/21 09:16 Klor Con 10 Meq PO 02/06/21 09:59 20 meq BID TREVOR Administration Sacubitril/Valsartan 0.5 tablet 01/07/21 10:00 01/10/21 09:14 Entresto 49 Mg-51 Mg Tablet PO 02/06/21 09:59 0.5 tablet BID TREVOR Administration Fluticasone/Salmeterol 2 puff 01/07/21 07:00 01/10/21 07:04 Advair Hfa 115/21 Common Canister* IH 02/06/21 06:59 2 puff BIDRT TREVOR Administration Simvastatin 20 mg 01/07/21 22:00 01/09/21 21:10 Zocor 20mg PO 02/06/21 21:59 20 mg HS TREVOR Administration Warfarin Sodium 5 mg 01/06/21 18:43 01/06/21 18:46 Coumadin 5 Mg PO 01/06/21 18:44 Not Given ONCE ONE Warfarin Sodium 5 mg 01/07/21 22:00 01/09/21 21:08 Coumadin 5 Mg PO 02/06/21 21:59 5 mg HS TREVOR Administration Intake & Output (Last 24 hours) 01/08/21 01/09/21 01/10/21 01/11/21 11:59 11:59 11:59 11:59 Intake Total 2386 1581 2585 Output Total 1000 3250 2150 Balance 1386 -1669 435 Weight 88 kg 88.6 kg 89.7 kg Laboratory Results (Last 24 hours) 01/10/21 01/10/21 05:00 04:55 PT 21.1 H INR 1.86 Sodium 139 Potassium 4.2 Chloride 99 Carbon Dioxide 34 H Anion Gap 9.6 BUN 23 H Creatinine 1.83 H Estimated GFR 38.2 Glucose 83 Calcium 8.3 L Total Bilirubin 0.50 AST 27 ALT 20 Alkaline Phosphatase 114 Serum Total Protein 6.5 Albumin 3.5 Orders (Last 24 hours) Category Date Time Status Discharge Routine Discharge 01/10/21 Ordered CMP Urgent Lab 01/10/21 05:00 Completed PT INR [PROTIME WITH INR] DAILY Lab 01/10/21 04:55 Completed Discharge Transfer Routine Transfer 01/10/21 Completed Patient Care Notes (Last 24 hours) 01/10/21 11:08 Case Management Note by Anca Flores patient [facility] Initialized on 01/10/21 11:08 - END OF NOTE - Vitals & Intake/Output Vital Signs: Vital Signs Temperature 97.8 F 01/10/21 07:52 Pulse Rate 64 01/10/21 10:39 Respiratory Rate 18 01/10/21 10:39 Blood Pressure 121/58 01/10/21 07:52 O2 Sat by Pulse Oximetry 96 01/10/21 10:39 Intake & Output: Intake & Output 01/08/21 01/09/21 01/10/21 01/11/21 11:59 11:59 11:59 11:59 Intake Total 2386 1581 2585 Output Total 1000 3250 2150 Balance 1386 -1669 435 Weight 88 kg 88.6 kg 89.7 kg - Lab Result Diagrams: 01/08/21 04:15 01/10/21 05:00 Lab Results-Last 24 Hrs: Lab Results-Last 24 Hours 01/10/21 01/10/21 Range/Units 04:55 05:00 PT 21.1 H (8.83-12.87) SECONDS INR 1.86 (0.8-3.0) Sodium 139 (137-145) mmol/L Potassium 4.2 (3.5-5.1) mmol/L Chloride 99 (98-107) mmol/L Carbon Dioxide 34 H (22-30) mmol/L Anion Gap 9.6 (5-15) MEQ/L BUN 23 H (9-20) mg/dL Creatinine 1.83 H (0.66-1.25) mg/dL Estimated GFR 38.2 ML/MIN Glucose 83 (74-106) mg/dL Calcium 8.3 L (8.4-10.2) mg/dL Total Bilirubin 0.50 (0.2-1.3) mg/dL AST 27 (17-59) U/L ALT 20 (0-50) U/L Alkaline Phosphatase 114 (38-126) U/L Serum Total Protein 6.5 (6.3-8.2) g/dL Albumin 3.5 (3.5-5.0) g/dL - Procedures and Test Procedures and Tests throughout Hospitalization: Therapy Orders & Screens 01/06/21 21:52 OT Screen per Nursing Assess ONCE Comment: Protocol Order Physician Instructions: Greater than 3 points order OT Admission Screening Reason For Exam: Triggered on Admission Diagnosis: CHF Open Wound/Cellutlitis/Pressure Ulcers: No Acute Fx/ORIF/Change in wt bearing status: No Severe MUSCULOSKELETAL pain: No ADL Dysfunction: Yes Acute CVA w/Hemiparesis/Hemiplegia: No Decreased Functional Mobility/Strength: Yes Sprain/Strain: No Acute Post-op Mobility Dysfunction: No Total Points: 4 PT Screen per Nursing Assess ONCE Comment: Protocol Order Physician Instructions: Greater than 3 points order PT Admission Screenin Reason For Exam: Triggered on Admission Diagnosis: CHF Open Wound/Cellutlitis/Pressure Ulcers: No Acute Fx/ORIF/Change in wt bearing status: No Severe MUSCULOSKELETAL pain: No ADL Dysfunction: Yes Acute CVA w/Hemiparesis/Hemiplegia: No Decreased Functional Mobility/Strength: Yes Sprain/Strain: No Acute Post-op Mobility Dysfunction: No Total Points: 4 RT Screen per Nursing Assess ONCE Comment: Protocol Order Physician Instructions: Greater than 3 points order RT Admission Screen Reason For Exam: Triggered on Admission Diagnosis: CHF Diagnosis: CHF Pneumonia: No Home O2: Yes Asthma: No CHF: Yes Home CPAP/BIPAP: No Home Nebs/MDI: Yes Total Points: 13 01/06/21 22:35 Oxygen Nasal Cannula 2 lpm Comment: Diagnosis: CHF 01/06/21 22:36 Respiratory Therapy Assessment DAILY Comment: Diagnosis: CHF 01/07/21 06:00 EKG IN AM Comment: 01/09/21 10:30 PT Eval & Treat (MD Order) ONCE Reason for Eval:: GENERALIZED WEAKNESS Diagnosis: c/o shortness of breath Discharge Exam General Appearance: no apparent distress, alert Neurologic Exam: alert, oriented x 3, cooperative, normal mood/affect, nml cerebellar function, sensation nml, No motor deficits Eye Exam: PERRL, EOMI, eyes nml inspection Ears, Nose, Throat Exam: normal ENT inspection, pharynx normal, moist mucous membranes Neck Exam: normal inspection, non-tender, supple, full range of motion Respiratory Exam: normal breath sounds, lungs clear, No respiratory distress Cardiovascular Exam: regular rate/rhythm, normal heart sounds Gastrointestinal/Abdomen Exam: soft, No tenderness, No mass Male Genitalia Exam: deferred Rectal Exam: deferred Back Exam: normal inspection, normal range of motion, No CVA tenderness, No vertebral tenderness Extremity Exam: normal inspection, normal range of motion Skin Exam: normal color, warm, dry Final Diagnosis/Problem List - Final Discharge Diagnosis/Problem (1) CHF (congestive heart failure) Status: Acute Code(s): I50.9 - HEART FAILURE, UNSPECIFIED (2) COPD (chronic obstructive pulmonary disease) Status: Acute (3) Atrial fibrillation Status: Chronic Code(s): I48.91 - UNSPECIFIED ATRIAL FIBRILLATION (4) Hypertension Status: Acute Code(s): I10 - ESSENTIAL (PRIMARY) HYPERTENSION - Discharge Discharge Date: 01/10/21 Disposition: Swing Bed @ [facility] Condition: Stable Prescriptions: No Action Pravastatin Sodium [Pravachol] 20 mg PO HS Budesonide/Formoterol Fumarate [Symbicort 160-4.5 Mcg Inhaler] 2 puffs IH BID Ferrous Sulfate 325 mg PO HS Furosemide 40 mg [Lasix 40 MG] 40 mg PO BID Potassium Chloride [K-Dur] 20 meq PO BID Metoprolol Succinate 50 mg [Toprol Xl 50 MG] 25 mg PO DAILY Sacubitril/Valsartan [Entresto 24 mg-26 mg Tablet] 1 tab PO BID Amiodarone HCl [Pacerone] 200 mg PO DAILY Famotidine 20 mg [Pepcid 20 MG] 20 mg PO HS Warfarin Sodium 5 mg [Coumadin 5 MG] 5 mg PO HS Albuterol/Ipratropium 3ml Neb* [DUONEB 0.5-3 MG/3 ml Neb] 1 neb IH Q4HPRN PRN PRN Reason: Shortness Of Breath Magnesium Chloride 64 mg [Slow-Mag 64 MG] 64 mg PO HS Docusate Sodium 100 mg [Colace 100 MG] 100 mg PO BID Instructions: Heart Failure, Child (DC) Follow up with: PAULINO REYNA [ACTIVE STAFF] - SKYLAR BLEVINS MD [Primary Care Provider] -
== END 2021-01-10 10:40 | disposition swing bed (61) | DRG 293 ==
LOC: ED 16:00 → MED SURG 20:49 → OBSVTOIN 01-07 12:20
PROVIDERS: ADMIT General Practice; ATTEND General Practice
DX: I50.9 Heart failure, unspecified (principal); J44.9 Chronic obstructive pulmonary disease, unspecified; I48.91 Unspecified atrial fibrillation; Z99.81 Dependence on supplemental oxygen; Z79.899 Other long term (current) drug therapy; Z79.01 Long term (current) use of anticoagulants; I10 Essential (primary) hypertension; E78.00 Pure hypercholesterolemia, unspecified; Z20.828 Contact with and (suspected) exposure to other viral communicable diseases
CPT/HCPCS: 0241U; 36000; 36415; 71045; 71250; 80048; 80053; 83605; 83880; 84484; 85025; 85027; 85610; 85730; 93005; 93268; 94640; 94760; 96372; 96374; 97161; 99285; G0378; J1650; J1940; J7609; A9270-GY

== ENCOUNTER 2021-01-10 09:50 | Inpatient (IN) | payer MEDICARE ==
[2021-01-10] MEDS ORDERED: PROVENTIL 2.5 MG/3 ML NEB IH PRN (10:47)
[2021-01-10] MEDS ORDERED: Aplisol ID ONE (10:47)
[2021-01-10] MEDS ORDERED: DUONEB 0.5-3 MG/3 ml Neb IH PRN (10:47)
[2021-01-10] MEDS: DUONEB 0.5-3 MG/3 ml Neb IH SCH ×3 (14:38→19:21)
[2021-01-10] MEDS: Lasix 40 MG/4 ML IV SCH (17:33)
[2021-01-10] MEDS: Advair Hfa 115/21 Common canister IH SCH (19:24)
[2021-01-10] MEDS: ENTRESTO 49 MG-51 MG TABLET PO SCH (21:21)
[2021-01-10] MEDS: FEOSOL 325 MG PO SCH (21:21)
[2021-01-10] MEDS: Klor Con 10 MEQ PO SCH (21:21)
[2021-01-10] MEDS: ZOCOR 20MG PO SCH (21:21)
[2021-01-10] MEDS: Pepcid 20 MG PO SCH (21:22)
[2021-01-10] MEDS: Coumadin 5 MG PO SCH (21:22)
[2021-01-10] MEDS: Colace 100 MG PO SCH (21:22)
[2021-01-10] MEDS: PATIENT OWN MEDICATION PO SCH (21:23)
[2021-01-11] MEDS: Sodium Chloride 0.9% 1000 ML 1,000 ML IV SCH ×2 (03:23→21:54)
[2021-01-11 07:17] LABS: INR 2.04 (0.8-3.0); PROTIME 23.2 SECONDS (8.83-12.87)
[2021-01-11] MEDS: DUONEB 0.5-3 MG/3 ml Neb IH SCH ×4 (07:18→19:55)
[2021-01-11] MEDS: Advair Hfa 115/21 Common canister IH SCH ×2 (07:19→19:56)
[2021-01-11] MEDS: Klor Con 10 MEQ PO SCH ×2 (10:00→21:56)
[2021-01-11] MEDS ORDERED: Aplisol ID SCH (10:00)
[2021-01-11] MEDS: Cordarone 200 MG PO SCH (10:01)
[2021-01-11] MEDS: Toprol-Xl 25MG Tablets PO SCH (10:01)
[2021-01-11] MEDS: Colace 100 MG PO SCH ×2 (10:02→21:54)
[2021-01-11] MEDS: ENTRESTO 49 MG-51 MG TABLET PO SCH ×2 (10:02→21:55)
[2021-01-11] MEDS: Lasix 40 MG/4 ML IV SCH ×2 (10:03→17:33)
[2021-01-11] MEDS: Coumadin 5 MG PO SCH (21:54)
[2021-01-11] MEDS: ZOCOR 20MG PO SCH (21:54)
[2021-01-11] MEDS: Pepcid 20 MG PO SCH (21:55)
[2021-01-11] MEDS: FEOSOL 325 MG PO SCH (21:57)
[2021-01-11] MEDS: PATIENT OWN MEDICATION PO SCH (21:57)
[2021-01-12 05:57] LABS: INR 2.28 (0.8-3.0)
[2021-01-12] MEDS: DUONEB 0.5-3 MG/3 ml Neb IH SCH ×4 (06:37→18:56)
[2021-01-12] MEDS: Advair Hfa 115/21 Common canister IH SCH ×2 (06:40→18:56)
[2021-01-12] MEDS: Colace 100 MG PO SCH ×2 (09:54→21:13)
[2021-01-12] MEDS: Cordarone 200 MG PO SCH (09:54)
[2021-01-12] MEDS: Lasix 40 MG/4 ML IV SCH ×2 (09:55→16:46)
[2021-01-12] MEDS: ENTRESTO 49 MG-51 MG TABLET PO SCH ×2 (09:55→21:13)
[2021-01-12] MEDS: Klor Con 10 MEQ PO SCH ×2 (09:55→21:14)
[2021-01-12] MEDS: Toprol-Xl 25MG Tablets PO SCH (09:56)
[2021-01-12] MEDS: Sodium Chloride 0.9% 1000 ML 1,000 ML IV SCH (13:24)
[2021-01-12] MEDS: Coumadin 5 MG PO SCH (21:13)
[2021-01-12] MEDS: Pepcid 20 MG PO SCH (21:13)
[2021-01-12] MEDS: ZOCOR 20MG PO SCH (21:14)
[2021-01-12] MEDS: FEOSOL 325 MG PO SCH (21:14)
[2021-01-12] MEDS: PATIENT OWN MEDICATION PO SCH (21:15)
[2021-01-13 05:15] LABS: INR 2.34 (0.8-3.0); PROTIME 26.7 SECONDS (8.83-12.87)
[2021-01-13] MEDS: DUONEB 0.5-3 MG/3 ml Neb IH SCH ×4 (06:33→18:29)
[2021-01-13] MEDS: Advair Hfa 115/21 Common canister IH SCH ×2 (06:35→18:30)
[2021-01-13] MEDS: Cordarone 200 MG PO SCH (09:51)
[2021-01-13] MEDS: ENTRESTO 49 MG-51 MG TABLET PO SCH ×2 (09:51→21:17)
[2021-01-13] MEDS: Klor Con 10 MEQ PO SCH ×2 (09:52→21:18)
[2021-01-13] MEDS: Lasix 40 MG/4 ML IV SCH ×2 (09:52→17:09)
[2021-01-13] MEDS: Toprol-Xl 25MG Tablets PO SCH (09:52)
[2021-01-13] MEDS: Colace 100 MG PO SCH ×2 (09:52→21:17)
[2021-01-13] MEDS: Coumadin 5 MG PO SCH (21:17)
[2021-01-13] MEDS: PATIENT OWN MEDICATION PO SCH (21:18)
[2021-01-13] MEDS: FEOSOL 325 MG PO SCH (21:18)
[2021-01-13] MEDS: ZOCOR 20MG PO SCH (21:19)
[2021-01-13] MEDS: Pepcid 20 MG PO SCH (21:19)
[2021-01-14] MEDS: Advair Hfa 115/21 Common canister IH SCH ×2 (07:08→19:03)
[2021-01-14] MEDS: DUONEB 0.5-3 MG/3 ml Neb IH SCH ×4 (07:08→19:03)
[2021-01-14 07:40] LABS: INR 2.33 (0.8-3.0); PROTIME 26.5 SECONDS (8.83-12.87)
[2021-01-14] MEDS: ENTRESTO 49 MG-51 MG TABLET PO SCH ×2 (09:47→21:18)
[2021-01-14] MEDS: Colace 100 MG PO SCH ×2 (09:48→21:18)
[2021-01-14] MEDS: Cordarone 200 MG PO SCH (09:48)
[2021-01-14] MEDS: Klor Con 10 MEQ PO SCH ×2 (09:48→21:18)
[2021-01-14] MEDS: Lasix 40 MG/4 ML IV SCH ×2 (09:48→17:05)
[2021-01-14] MEDS: Toprol-Xl 25MG Tablets PO SCH (09:48)
--- NOTE | 2021-01-14 12:11 | PCM.NOTE ---
Date and Time: 01/14/21 1211 Subjective Assessment: doing better - Review of Systems Constitutional: No Fever, No Chills Eyes: No Symptoms Ears, Nose, & Throat: No Symptoms Respiratory: No Cough, No Short Of Breath Cardiac: No Chest Pain, No Edema, No Syncope Abdominal/Gastrointestinal: No Abdominal Pain, No Nausea, No Vomiting, No Diarrhea Genitourinary Symptoms: No Dysuria Musculoskeletal: No Back Pain, No Neck Pain Skin: No Rash Neurological: No Dizziness, No Focal Weakness, No Sensory Changes Psychological: No Symptoms Endocrine: No Symptoms Hematologic/Lymphatic: No Symptoms Immunological/Allergic: No Symptoms Objective Exam General Appearance: no apparent distress, alert Neurologic Exam: alert, oriented x 3, cooperative, normal mood/affect, nml cerebellar function, sensation nml, No motor deficits Skin Exam: normal color, warm, dry Eye Exam: PERRL, EOMI, eyes nml inspection Ears, Nose, Throat Exam: normal ENT inspection, pharynx normal, moist mucous membranes Neck Exam: normal inspection, non-tender, supple, full range of motion Respiratory Exam: normal breath sounds, lungs clear, No respiratory distress Cardiovascular Exam: regular rate/rhythm, normal heart sounds Gastrointestinal/Abdomen Exam: soft, No tenderness, No mass Extremity Exam: normal inspection, normal range of motion Back Exam: normal inspection, normal range of motion, No CVA tenderness, No vertebral tenderness Male Genitalia Exam: deferred Rectal Exam: deferred OBJECTIVE DATA Vital Signs: Vital Signs - 24 hr Temp Pulse Resp BP Pulse Ox 01/14/21 11:32 64 20 98 01/14/21 07:10 53 L 16 97 01/14/21 07:00 98.2 F 70 22 129/60 95 01/13/21 19:00 98.2 F 67 22 110/70 92 L 01/13/21 18:31 65 20 95 Pain Assessment - Last Documented Pain Intensity 0 Intake and Output: Intake & Output 01/12/21 01/13/21 01/14/21 01/15/21 11:59 11:59 11:59 11:59 Intake Total 1115 600 Output Total 2199 2049 112 Balance -1085 -2049 -525 Weight 90.5 kg 89.6 kg 90.7 kg Lab Results: Lab Results-Last 24 Hours 01/14/21 Range/Units 06:34 PT 26.5 H (8.83-12.87) SECONDS INR 2.33 (0.8-3.0) Assessment/Plan (1) CHF (congestive heart failure) Current Visit: Yes Status: Acute Qualifiers: Heart failure type: combined systolic and diastolic Heart failure chronicity: acute on chronic Qualified Code(s): I50.43 - Acute on chronic combined systolic (congestive) and diastolic (congestive) heart failure Code(s): I50.9 - HEART FAILURE, UNSPECIFIED (2) COPD (chronic obstructive pulmonary disease) Current Visit: Yes Status: Chronic Qualifiers: COPD type: unspecified COPD Qualified Code(s): J44.9 - Chronic obstructive pulmonary disease, unspecified
--- NOTE | 2021-01-14 12:11 | PCM.HP ---
History of Present Illness - Chief Complaint Chief Complaint: DECONDITIONING R/T CHF History of Present Illness: Mr.ALUMBAUGH SHEIKH is a 80 year old male.admitted for CHF rehab. - Review of Systems Constitutional: No Fever, No Chills Eyes: No Symptoms Ears, Nose, & Throat: No Symptoms Respiratory: Short Of Breath, Wheezing, No Cough Cardiac: No Chest Pain, No Edema, No Syncope Abdominal/Gastrointestinal: No Abdominal Pain, No Nausea, No Vomiting, No Diarrhea Genitourinary Symptoms: No Dysuria Musculoskeletal: No Back Pain, No Neck Pain Skin: No Rash Neurological: No Dizziness, No Focal Weakness, No Sensory Changes Psychological: No Symptoms Endocrine: No Symptoms Hematologic/Lymphatic: No Symptoms Immunological/Allergic: No Symptoms Medications & Allergies Home Medications: Home Medication List Pravastatin Sodium [Pravachol] 20 mg PO HS 02/15/16 [History Confirmed 01/10/21] Budesonide/Formoterol Fumarate [Symbicort 160-4.5 Mcg Inhaler] 2 puffs IH BID 07/16/20 [History Confirmed 01/10/21] Ferrous Sulfate 325 mg PO HS 11/08/20 [History Confirmed 01/10/21] Furosemide 40 mg [Lasix 40 MG] 40 mg PO BID 11/08/20 [History Confirmed 01/10/21] Metoprolol Succinate 50 mg [Toprol Xl 50 MG] 25 mg PO DAILY 11/08/20 [History Confirmed 01/10/21] Potassium Chloride [K-Dur] 20 meq PO BID 11/08/20 [History Confirmed 01/10/21] Sacubitril/Valsartan [Entresto 24 mg-26 mg Tablet] 1 tab PO BID 11/08/20 [History Confirmed 01/10/21] Albuterol/Ipratropium 3ml Neb* [DUONEB 0.5-3 MG/3 ml Neb] 1 neb IH Q4HPRN PRN 01/06/21 [History Confirmed 01/10/21] Amiodarone HCl [Pacerone] 200 mg PO DAILY 01/06/21 [History Confirmed 01/10/21] Docusate Sodium 100 mg [Colace 100 MG] 100 mg PO BID 01/06/21 [History Confirmed 01/10/21] Famotidine 20 mg [Pepcid 20 MG] 20 mg PO HS 01/06/21 [History Confirmed 01/10/21] Magnesium Chloride 64 mg [Slow-Mag 64 MG] 64 mg PO HS 01/06/21 [History Confirmed 01/10/21] Warfarin Sodium 5 mg [Coumadin 5 MG] 5 mg PO HS 01/06/21 [History Confirmed 01/10/21] Allergies/Adverse Reactions: Allergies Allergy/AdvReac Type Severity Reaction Status Date / Time No Known Drug Allergies Allergy Verified 01/10/21 10:55 - Past Medical History Past Medical History: Yes Neurological History: No Pertinent History ENT History: Cataracts Cardiac History: Arrhythmia, High Cholesterol, Hypertension, Other Respiratory History: CHF, COPD Endocrine Medical History: No Pertinent History Musculoskelatal History: No Pertinent History GI Medical History: No Pertinent History History: No Pertinent History Pyscho-Social History: No Pertinent History Male Reproductive Disorders: No Pertinent History Comment: 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 - Past Surgical History Past Surgical History: Yes Neuro Surgical History: No Pertinent History Cardiac History: Valve Replacement Respiratory Surgery: No Pertinent History GI Surgical History: No Pertinent History Genitourinary Surgical Hx: No Pertinent History Musculskeletal Surgical Hx: No Pertinent History Male Surgical History: No Pertinent History - Social History Smoking Status: Former smoker Exposure to second hand smoke: No Alcohol: None Drug Use: none Significant Family History: no pertinent family hx - Physical Exam Vital Signs: Vital Signs - 24 hr Temp Pulse Resp BP Pulse Ox 01/14/21 11:32 64 20 98 01/14/21 07:10 53 L 16 97 01/14/21 07:00 98.2 F 70 22 129/60 95 01/13/21 19:00 98.2 F 67 22 110/70 92 L 01/13/21 18:31 65 20 95 General Appearance: no apparent distress, alert Neurologic Exam: alert, oriented x 3, cooperative, normal mood/affect, nml cerebellar function, nml station & gait, sensation nml, No motor deficits Eye Exam: PERRL/EOMI, eyes nml inspection Ears, Nose, Throat Exam: normal ENT inspection, TMs normal, pharynx normal, moist mucous membranes Neck Exam: normal inspection, non-tender, supple, full range of motion Respiratory Exam: normal breath sounds, lungs clear, No respiratory distress Cardiovascular Exam: regular rate/rhythm, normal heart sounds, normal peripheral pulses Gastrointestinal/Abdomen Exam: soft, normal bowel sounds, No tenderness, No mass Back Exam: normal inspection, normal range of motion, No CVA tenderness, No vertebral tenderness Extremity Exam: normal inspection, normal range of motion, pelvis stable Skin Exam: normal color, warm, dry, No rash Lymphatic Exam: No adenopathy Results - Labs Lab/Micro Results: Lab Results-Last 24 Hours 01/14/21 Range/Units 06:34 PT 26.5 H (8.83-12.87) SECONDS INR 2.33 (0.8-3.0) Assessment/Plan (1) CHF (congestive heart failure) Current Visit: Yes Status: Acute Qualifiers: Heart failure type: combined systolic and diastolic Heart failure chronicity: acute on chronic Qualified Code(s): I50.43 - Acute on chronic combined systolic (congestive) and diastolic (congestive) heart failure Code(s): I50.9 - HEART FAILURE, UNSPECIFIED (2) COPD (chronic obstructive pulmonary disease) Current Visit: Yes Status: Chronic Qualifiers: COPD type: unspecified COPD Qualified Code(s): J44.9 - Chronic obstructive pulmonary disease, unspecified
[2021-01-14] MEDS: Coumadin 5 MG PO SCH (21:18)
[2021-01-14] MEDS: FEOSOL 325 MG PO SCH (21:18)
[2021-01-14] MEDS: ZOCOR 20MG PO SCH (21:19)
[2021-01-14] MEDS: Pepcid 20 MG PO SCH (21:19)
[2021-01-14] MEDS: PATIENT OWN MEDICATION PO SCH (21:19)
[2021-01-15] MEDS: DUONEB 0.5-3 MG/3 ml Neb IH SCH ×4 (05:09→19:46)
[2021-01-15] MEDS: Advair Hfa 115/21 Common canister IH SCH ×2 (05:09→19:46)
[2021-01-15 06:23] LABS: INR 2.32 (0.8-3.0); PROTIME 26.4 SECONDS (8.83-12.87)
[2021-01-15] MEDS: Cordarone 200 MG PO SCH (09:28)
[2021-01-15] MEDS: Klor Con 10 MEQ PO SCH ×2 (09:28→22:21)
[2021-01-15] MEDS: Colace 100 MG PO SCH ×2 (09:28→22:21)
[2021-01-15] MEDS: ENTRESTO 49 MG-51 MG TABLET PO SCH ×2 (09:30→22:20)
[2021-01-15] MEDS: Lasix 40 MG/4 ML IV SCH ×2 (09:30→16:57)
[2021-01-15] MEDS: Toprol-Xl 25MG Tablets PO SCH (09:31)
--- NOTE | 2021-01-15 11:39 | PCM.NOTE ---
Date and Time: 01/15/21 1139 Subjective Assessment: doing ok - Review of Systems Constitutional: No Fever, No Chills Eyes: No Symptoms Ears, Nose, & Throat: No Symptoms Respiratory: No Cough, No Short Of Breath Cardiac: No Chest Pain, No Edema, No Syncope Abdominal/Gastrointestinal: No Abdominal Pain, No Nausea, No Vomiting, No Diarrhea Genitourinary Symptoms: No Dysuria Musculoskeletal: No Back Pain, No Neck Pain Skin: No Rash Neurological: No Dizziness, No Focal Weakness, No Sensory Changes Psychological: No Symptoms Endocrine: No Symptoms Hematologic/Lymphatic: No Symptoms Immunological/Allergic: No Symptoms Objective Exam General Appearance: no apparent distress, alert Neurologic Exam: alert, oriented x 3, cooperative, normal mood/affect, nml cerebellar function, sensation nml, No motor deficits Skin Exam: normal color, warm, dry Eye Exam: PERRL, EOMI, eyes nml inspection Ears, Nose, Throat Exam: normal ENT inspection, pharynx normal, moist mucous membranes Neck Exam: normal inspection, non-tender, supple, full range of motion Respiratory Exam: normal breath sounds, lungs clear, No respiratory distress Cardiovascular Exam: regular rate/rhythm, normal heart sounds Gastrointestinal/Abdomen Exam: soft, No tenderness, No mass Extremity Exam: normal inspection, normal range of motion Back Exam: normal inspection, normal range of motion, No CVA tenderness, No vertebral tenderness Male Genitalia Exam: deferred Rectal Exam: deferred OBJECTIVE DATA Vital Signs: Vital Signs - 24 hr Temp Pulse Resp BP Pulse Ox 01/15/21 07:47 98.9 F 59 L 20 118/56 96 01/15/21 05:12 70 22 94 L 01/14/21 20:13 98 F 61 113/53 97 01/14/21 19:06 63 20 97 01/14/21 15:56 98.4 F 01/14/21 14:42 71 20 96 Pain Assessment - Last Documented Pain Intensity 0 Intake and Output: Intake & Output 01/12/21 01/13/21 01/14/21 01/15/21 11:59 11:59 11:59 11:59 Intake Total 1115 600 320 Output Total 2199 2049 112 1371 Balance -3917 -3561 -525 -1005 Weight 90.5 kg 89.6 kg 90.7 kg 91.2 kg Lab Results: Lab Results-Last 24 Hours 01/15/21 Range/Units 05:20 PT 26.4 H (8.83-12.87) SECONDS INR 2.32 (0.8-3.0) Multi-Disciplinary Progress Notes: Multi-Disciplinary Progress Notes 01/14/21 16:44 Physical Therapy Note by Brittany Burden PT. REFUSED AM RX THIS DATE HE REPORTED HE WAS SOB. PT. IN BED. PT. AGREED TO PM P.T. O2 SATS 95% AT REST ON 2.5 L O2. SUPINE TO SIT AND SIT TO STAND MOD I. PT. AMBULATES ~ 60' AT MOST 1/ ROLLER WALKER MOD I ON 3 L O2. O2 SATS DID NOT GO BELOW 93% W/ WALKING OR W/ LE EX'S. PT'S PERCEIVED DYSPNEA IS 8/10, HOWEVER. PT. REQUIRES ~ 3-5 MINS REST AFTER ~ 2-3 MINS OF EXERCISE D/T SOB. OCCASIONALLY NEEDS REMINDERS FOR PROPER BREATHING TECHNIQUE. PT. PERFORMED SEATED STEPPER X 2 2 MIN INTERVALS W/ 3 MINS REST IN BETWEEN; WELL SEATED LE EX'S W/ 1# CUFF WEIGHT OF DEMETRIO AND OSIRIS. PT. ALSO TOLERATED DOWEL EVELIO EX'S WITHOUT WEIGHT FOCUSING ON BREATHING. DISCUSSED POSSIBILITY OF D/C HOME /W EX- AND HHC AND PT. IS CONCERNED ABOUT SORE THROAT AND INCREASED COUGH AND SINUS DRAINAGE. NURSING WAS NOTIFIED AND SHE WAS GOING TO [facility] NOTIFY DR. BLEVINS RE: UPPER RESPIRATORY SX. WILL CONT. PT 5X/WK TO ADDRESS FUNCTIONAL DEFICITS. BRITTANY BURDEN, PT Initialized on 01/14/21 16:44 - END OF NOTE Assessment/Plan (1) CHF (congestive heart failure) Current Visit: Yes Status: Acute Qualifiers: Heart failure type: combined systolic and diastolic Heart failure chronicity: acute on chronic Qualified Code(s): I50.43 - Acute on chronic combined systolic (congestive) and diastolic (congestive) heart failure Code(s): I50.9 - HEART FAILURE, UNSPECIFIED (2) COPD (chronic obstructive pulmonary disease) Current Visit: Yes Status: Chronic Qualifiers: COPD type: unspecified COPD Qualified Code(s): J44.9 - Chronic obstructive pulmonary disease, unspecified (3) Physical debility Current Visit: Yes Status: Acute Code(s): R53.81 - OTHER MALAISE
[2021-01-15] MEDS: Pepcid 20 MG PO SCH (22:20)
[2021-01-15] MEDS: ZOCOR 20MG PO SCH (22:20)
[2021-01-15] MEDS: FEOSOL 325 MG PO SCH (22:21)
[2021-01-15] MEDS: PATIENT OWN MEDICATION PO SCH (22:21)
[2021-01-15] MEDS: Coumadin 5 MG PO SCH (22:21)
[2021-01-16 06:03] LABS: INR 2.71 (0.8-3.0); PROTIME 30.9 SECONDS (8.83-12.87)
[2021-01-16] MEDS: DUONEB 0.5-3 MG/3 ml Neb IH SCH ×3 (07:03→14:44)
[2021-01-16] MEDS: Advair Hfa 115/21 Common canister IH SCH (07:03)
--- NOTE | 2021-01-16 07:38 | PCM.NOTE ---
Date and Time: 01/16/2137 Subjective Assessment: doing better - Review of Systems Constitutional: No Fever, No Chills Eyes: No Symptoms Ears, Nose, & Throat: No Symptoms Respiratory: No Cough, No Short Of Breath Cardiac: No Chest Pain, No Edema, No Syncope Abdominal/Gastrointestinal: No Abdominal Pain, No Nausea, No Vomiting, No Diarrhea Genitourinary Symptoms: No Dysuria Musculoskeletal: No Back Pain, No Neck Pain Skin: No Rash Neurological: No Dizziness, No Focal Weakness, No Sensory Changes Psychological: No Symptoms Endocrine: No Symptoms Hematologic/Lymphatic: No Symptoms Immunological/Allergic: No Symptoms Objective Exam General Appearance: no apparent distress, alert Neurologic Exam: alert, oriented x 3, cooperative, normal mood/affect, nml cerebellar function, sensation nml, No motor deficits Skin Exam: normal color, warm, dry Eye Exam: PERRL, EOMI, eyes nml inspection Ears, Nose, Throat Exam: normal ENT inspection, pharynx normal, moist mucous membranes Neck Exam: normal inspection, non-tender, supple, full range of motion Respiratory Exam: normal breath sounds, lungs clear, No respiratory distress Cardiovascular Exam: regular rate/rhythm, normal heart sounds Gastrointestinal/Abdomen Exam: soft, No tenderness, No mass Extremity Exam: normal inspection, normal range of motion Back Exam: normal inspection, normal range of motion, No CVA tenderness, No vertebral tenderness Male Genitalia Exam: deferred Rectal Exam: deferred OBJECTIVE DATA Vital Signs: Vital Signs - 24 hr Temp Pulse Resp BP Pulse Ox 01/16/21 07:08 51 L 22 96 01/15/21 20:00 98.7 F 67 18 109/53 99 01/15/21 19:47 64 18 98 01/15/21 15:11 57 L 18 97 01/15/21 12:47 57 L 20 97 01/15/21 07:47 98.9 F 59 L 20 118/56 96 Pain Assessment - Last Documented Pain Intensity 0 Intake and Output: Intake & Output 01/13/21 01/14/21 01/15/21 01/16/21 11:59 11:59 11:59 11:59 Intake Total 600 320 240 Output Total 2049 1354 2062 4525 Balance -2049 -525 -1055 -835 Weight 89.6 kg 90.7 kg 91.2 kg Lab Results: Lab Results-Last 24 Hours 01/16/21 Range/Units 04:20 PT 30.9 H (8.83-12.87) SECONDS INR 2.71 (0.8-3.0) Multi-Disciplinary Progress Notes: Multi-Disciplinary Progress Notes 01/15/21 13:52 Case Management Note by Anca Flores S/W PATIENT ABOUT POSSIBLE DC PLAN OF DCING HOME TOMORROW AFTERNOON AFTER AM PHYSICAL THERAPY. HE IS AGREEABLE. HE LIVES WITH HIS EX WHO WILL BE THERE TO HELP NEEDED. NEW ORDER WAS SENT TO [facility] PER THEIR REQUEST. THEY WILL NEED NOTIFIED AT DC ALREADY DOCUMENTED. HE REPORTS HE HAS A WALKER AT HOME AND ALL OF HIS OXYGEN EQUIPMENT IS IN GOOD WORKING CONDITION. HE DENIES ANY OTHER NEW NEEDS FOR DC AT THIS TIME Initialized on 01/15/21 13:52 - END OF NOTE Assessment/Plan (1) CHF (congestive heart failure) Current Visit: Yes Status: Acute Qualifiers: Heart failure type: combined systolic and diastolic Heart failure chronicity: acute on chronic Qualified Code(s): I50.43 - Acute on chronic combined systolic (congestive) and diastolic (congestive) heart failure Code(s): I50.9 - HEART FAILURE, UNSPECIFIED (2) COPD (chronic obstructive pulmonary disease) Current Visit: Yes Status: Chronic Qualifiers: COPD type: unspecified COPD Qualified Code(s): J44.9 - Chronic obstructive pulmonary disease, unspecified (3) Physical debility Current Visit: Yes Status: Acute Code(s): R53.81 - OTHER MALAISE
[2021-01-16 08:11] VITALS: BP 136/58
[2021-01-16] MEDS: Lasix 40 MG/4 ML IV SCH (09:33)
[2021-01-16] MEDS: ENTRESTO 49 MG-51 MG TABLET PO SCH (09:36)
[2021-01-16] MEDS: Toprol-Xl 25MG Tablets PO SCH (09:37)
[2021-01-16] MEDS: Klor Con 10 MEQ PO SCH (09:38)
[2021-01-16] MEDS: Cordarone 200 MG PO SCH (09:38)
[2021-01-16] MEDS: Colace 100 MG PO SCH (09:38)
[2021-01-16 14:46] VITALS: PULSE 58; O2SAT 98
--- NOTE | 2021-01-16 15:30 | PCM.DS ---
Discharge Summary Date of Admission: 01/10/21 10:40 Admitting Physician: SKYLAR BLEVINS Primary Care Provider: SKYLAR BLEVINS Allergies Allergies No Known Drug Allergies Allergy (Verified 01/10/21 10:55) Hospital Summary - Hospital Course Hospital Course: Chief Complaint Diagnosis DECONDITIONING R/T CHF Allergies Allergy/AdvReac Type Severity Reaction Status Date / Time No Known Drug Allergies Allergy Verified 01/10/21 10:55 Vital Signs (Last 24 hours) Temp Pulse Resp BP Pulse Ox 01/16/21 14:45 58 L 20 98 01/16/21 10:45 59 L 18 96 01/16/21 08:00 98.0 F 64 24 136/58 94 L 01/16/21 07:08 51 L 22 96 01/15/21 20:00 98.7 F 67 18 109/53 99 01/15/21 19:47 64 18 98 Current Medications Discontinued Medications Generic Name Dose Route Start Last Admin Trade Name Freq PRN Reason Stop Dose Admin Albuterol Sulfate 2.5 mg 01/10/21 10:47 Proventil 2.5 Mg/3 Ml Neb IH 02/05/21 22:48 Q2H PRN PRN SHORTNESS OF BREATH/WHEEZING Albuterol/Ipratropium 3 ml 01/10/21 11:00 01/16/21 14:44 Duoneb 0.5-3 Mg/3 Ml Neb IH 02/06/21 06:59 3 ml QIDRT TREVOR Administration Albuterol/Ipratropium 3 ml 01/10/21 10:47 Duoneb 0.5-3 Mg/3 Ml Neb IH 02/06/21 07:14 Q4HPRN PRN SHORTNESS OF BREATH Amiodarone HCl 200 mg 01/11/21 10:00 01/16/21 09:38 Cordarone 200 Mg PO 02/06/21 09:59 200 mg DAILY TREVOR Administration Docusate Sodium 100 mg 01/10/21 22:00 01/16/21 09:38 Colace 100 Mg PO 02/06/21 09:59 100 mg BID TREVOR Administration Famotidine 20 mg 01/10/21 22:00 01/15/21 22:20 Pepcid 20 Mg PO 02/06/21 21:59 20 mg HS TREVOR Administration Ferrous Sulfate 325 mg 01/10/21 22:00 01/15/21 22:21 Feosol 325 Mg PO 02/06/21 21:59 325 mg HS TREVOR Administration Furosemide 40 mg 01/10/21 17:00 01/16/21 09:33 Lasix 40 Mg/4 Ml IV 02/06/21 09:59 40 mg BID DIURETIC TREVOR Administration Sodium Chloride 1,000 mls @ 30 mls/hr 01/10/21 10:47 01/12/21 13:24 Sodium Chloride 0.9% 1000 Ml IV 02/06/21 12:59 Not Given .Q24H TREVOR Metoprolol Succinate 25 mg 01/11/21 10:00 01/16/21 09:37 Toprol-Xl 25mg Tablets PO 02/06/21 09:59 25 mg DAILY TREVOR Administration Slo Mag 64 Mg 1 each 01/10/21 22:00 01/15/21 22:21 PO 02/06/21 21:59 1 each HS TREVOR Administration Potassium Chloride 20 meq 01/10/21 22:00 01/16/21 09:38 Klor Con 10 Meq PO 02/06/21 09:59 20 meq BID TREVOR Administration Sacubitril/Valsartan 0.5 tablet 01/10/21 22:00 01/16/21 09:36 Entresto 49 Mg-51 Mg Tablet PO 02/06/21 09:59 0.5 tablet BID TREVOR Administration Fluticasone/Salmeterol 2 puff 01/10/21 19:00 01/16/21 07:03 Advair Hfa 115/21 Common Canister* IH 02/06/21 06:59 2 puff BIDRT TREVOR Administration Simvastatin 20 mg 01/10/21 22:00 01/15/21 22:20 Zocor 20mg PO 02/06/21 21:59 20 mg HS TREVOR Administration Tuberculin PPD 5 unit 01/11/21 10:00 01/12/21 13:30 Aplisol ID 01/11/21 10:01 5 unit DAILY TREVOR Administration Tuberculin PPD 5 unit 01/22/21 10:00 Aplisol ID 01/22/21 10:01 DAILY TREVOR Warfarin Sodium 5 mg 01/10/21 22:00 01/15/21 22:21 Coumadin 5 Mg PO 02/06/21 21:59 5 mg HS TREVOR Administration Intake & Output (Last 24 hours) 01/14/21 01/15/21 01/16/21 01/17/21 11:59 11:59 11:59 11:59 Intake Total 600 320 240 Output Total 1125 1375 1675 Balance -140 -4415 -8447 Weight 90.7 kg 91.2 kg 93 kg Laboratory Results (Last 24 hours) 01/16/21 04:20 PT 30.9 H INR 2.71 Orders (Last 24 hours) Category Date Time Status Discharge Routine Discharge 01/16/21 Ordered PT INR [PROTIME WITH INR] DAILY Lab 01/16/21 04:20 Completed Tuberculin,Purif.prot.deriv. [Aplisol] Med 01/22/21 10:00 Discontinued 5 unit ID DAILY Patient Care Notes (Last 24 hours) 01/16/21 15:03 Nursing Note by Yesika Roy I faxed patients D/C paperwork to [facility] at [phone]. I notified Xenia at their office of patient discharging home. Initialized on 01/16/21 15:03 - END OF NOTE 01/16/21 12:44 Nursing Note by Trinidad Mathews Notified Mi Pricebagita of Pt's discharge. She started she can pick Pt up at 1330. Initialized on 01/16/21 12:44 - END OF NOTE 01/16/21 11:25 Case Management Note by Bertha Price CALL TO [facility] TO VERIFY PT DOES HAVE PORTABILITY. SPOKE WITH RAGHAVENDRA, WHO REPORTS THAT PT DOES HAVE PORTABILITY, AND THE CYLINDERS WERE LAST FILLED ON November. RAGHAVENDRA REPORTS THAT WHEN PT GETS HOME HE NEEDS TO CALL [facility] AND THEY CAN SEND A FLOATING OPERATOR OUT TO CHECK HIS EQUIPMENT. Initialized on 01/16/21 11:25 - END OF NOTE 01/16/21 11:09 Nutrition Note by Melissa Quiros F/u Note: House regular diet con't with 75-100% po intake. adm weight 89.6kg; current weight 93 kg. no recent labs. goal of po intake >=75% met and ongoing. Will con't to monitor and f/u prn. T.Ray, MSRDCD Initialized on 01/16/21 11:09 - END OF NOTE 01/16/21 08:34 Case Management Note by Lily Ramírez SPOKE WITH PT ABOUT D/C NEEDS, HAS HHC SET UP PREVIOUSLY PRIOR TO D/C STATES HE IS COMFORTABLE GOING HOME WITH THEIR CURRENT LEVEL OF CARE. HAS NEBULIZER , OXYGEN AND WALKER IN GOOD WORKING CONDITION. STATES IF HE HAS ANY PROBLEMS AT HOME HE IS COMFORTABLE CALLING [facility] TO COME EVALUATE HIM. NO NEW NEEDS AT THIS TIME, WILL NOTIFY [facility] WHEN HE IS D/C HOME. Initialized on 01/16/21 08:34 - END OF NOTE - Vitals & Intake/Output Vital Signs: Vital Signs Temperature 98.0 F 01/16/21 08:00 Pulse Rate 58 L 01/16/21 14:45 Respiratory Rate 01/16/21 14:45 Blood Pressure 136/58 01/16/21 08:00 O2 Sat by Pulse Oximetry 98 01/16/21 14:45 Intake & Output: Intake & Output 01/14/21 01/15/21 01/16/21 01/17/21 11:59 11:59 11:59 11:59 Intake Total 600 320 240 Output Total 1125 1375 1675 Balance -367 -9895 -9783 Weight 90.7 kg 91.2 kg 93 kg - Lab Lab Results-Last 24 Hrs: Lab Results-Last 24 Hours 01/16/21 Range/Units 04:20 PT 30.9 H (8.83-12.87) SECONDS INR 2.71 (0.8-3.0) - Procedures and Test Procedures and Tests throughout Hospitalization: Therapy Orders & Screens 01/10/21 10:47 PT Eval & Treat ( Order) ONCE Reason for Eval:: DECONDITIONING R/T CHF Diagnosis: DECONDITIONING R/T CHF Oxygen Nasal Cannula 2 lpm Comment: Diagnosis: CHF Respiratory Therapy Assessment DAILY Comment: Diagnosis: CHF 01/10/21 11:17 PT Clarification Order ROUTINE Comment: Physician Instructions: c/o SOB Reason For Exam: Generalized Weakness PT Clarification: IP PT 5x/week See eval and POC for further detail. Discharge Exam General Appearance: no apparent distress, alert Neurologic Exam: alert, oriented x 3, cooperative, normal mood/affect, nml cerebellar function, sensation nml, No motor deficits Eye Exam: PERRL, EOMI, eyes nml inspection Ears, Nose, Throat Exam: normal ENT inspection, pharynx normal, moist mucous membranes Neck Exam: normal inspection, non-tender, supple, full range of motion Respiratory Exam: normal breath sounds, lungs clear, No respiratory distress Cardiovascular Exam: regular rate/rhythm, normal heart sounds Gastrointestinal/Abdomen Exam: soft, No tenderness, No mass Male Genitalia Exam: deferred Rectal Exam: deferred Back Exam: normal inspection, normal range of motion, No CVA tenderness, No vertebral tenderness Extremity Exam: normal inspection, normal range of motion Skin Exam: normal color, warm, dry Final Diagnosis/Problem List - Final Discharge Diagnosis/Problem (1) CHF (congestive heart failure) Status: Chronic Priority: High Code(s): I50.9 - HEART FAILURE, UNSPECIFIED (2) COPD (chronic obstructive pulmonary disease) Status: Chronic (3) Physical debility Status: Acute Priority: High Code(s): R53.81 - OTHER MALAISE - Discharge Discharge Date: 01/16/21 Disposition: HOME HEALTH SERVICE Condition: Stable Prescriptions: No Action Pravastatin Sodium [Pravachol] 20 mg PO HS Budesonide/Formoterol Fumarate [Symbicort 160-4.5 Mcg Inhaler] 2 puffs IH BID Ferrous Sulfate 325 mg PO HS Furosemide 40 mg [Lasix 40 MG] 40 mg PO BID Potassium Chloride [K-Dur] 20 meq PO BID Metoprolol Succinate 50 mg [Toprol Xl 50 MG] 25 mg PO DAILY Sacubitril/Valsartan [Entresto 24 mg-26 mg Tablet] 1 tab PO BID Amiodarone HCl [Pacerone] 200 mg PO DAILY Famotidine 20 mg [Pepcid 20 MG] 20 mg PO HS Warfarin Sodium 5 mg [Coumadin 5 MG] 5 mg PO HS Albuterol/Ipratropium 3ml Neb* [DUONEB 0.5-3 MG/3 ml Neb] 1 neb IH Q4HPRN PRN PRN Reason: Shortness Of Breath Magnesium Chloride 64 mg [Slow-Mag 64 MG] 64 mg PO HS Docusate Sodium 100 mg [Colace 100 MG] 100 mg PO BID Instructions: Heart Failure, Adult (DC), Generalized Weakness (DC) Additional Instructions: CALL [facility] WHEN YOU GET HOME, AND THEY WILL SEND A FLOATING OPERATOR OUT TO CHECK YOUR EQUIPMENT. THE LAST TIME THEY FILLED YOUR CYLINDERS WAS November. JOHN CAN BE REACHED AT [phone]. Follow up with: SKYLAR BLEVINS MD [Primary Care Provider] - 01/23/21 1:45 pm
[2021-01-22] MEDS ORDERED: Aplisol ID SCH (10:00)
== END 2021-01-16 14:50 | disposition home health service (06) | DRG 293 ==
LOC: MED SURG 10:40
PROVIDERS: ADMIT General Practice; ATTEND General Practice
DX: I50.9 Heart failure, unspecified (principal); J44.9 Chronic obstructive pulmonary disease, unspecified; R53.81 Other malaise; Z79.899 Other long term (current) drug therapy; Z79.01 Long term (current) use of anticoagulants; I10 Essential (primary) hypertension; E78.00 Pure hypercholesterolemia, unspecified
CPT/HCPCS: 36415; 85610; 94640; 94760; J1940; 97110-GP; A9270-GY

== ENCOUNTER 2021-05-17 13:02 | Inpatient (IN) | payer MEDICARE ==
[2021-05-17] MEDS ORDERED: Sodium Chloride 0.9% 1000 ML 1,000 ML IV SCH (13:15)
[2021-05-17] MEDS ORDERED: DUONEB 0.5-3 MG/3 ml Neb IH ONE ×2 (13:15→13:54)
[2021-05-17] MEDS ORDERED: Sodium Chloride 0.9% 1000 ML 1,000 ML ONE (13:18)
[2021-05-17 13:55] LABS: Hematocrit 36.7 % (42-50); Hemoglobin 10.6 gm/dl (12.5-18.0); Mean Cell Volume 95.8 fl (78-100); Mean Corpuscular Hemoglobin 27.7 pg (26-32); Mean Corpuscular Hgb Concent. 28.9 g/dl (32-36); Mean Platelet Volume 11.1 fl (7.5-11.0); Platelet Count 136 K/mm3 (150-450); Red Blood Count 3.83 M/mm3 (4.1-5.6); Red Cell Distribution Width 17.2 % (11.5-14.0); White Blood Count 19.2 K/mm3 (4.0-10.5)
[2021-05-17 14:15] LABS: ALBUMIN 4.1 g/dL (3.5-5.0); ANION GAP 12.7 MEQ/L (5-15); BILIRUBIN,TOTAL 1.1 mg/dL (0.2-1.3); Creatinine 1 1.54 mg/dL (0.66-1.25); EST GLOMERULAR FILTRATION RATE 46.5 ML/MIN; Potassium 4.3 mmol/L (3.5-5.1); Total Protein 7.2 g/dL (6.3-8.2)
[2021-05-17] MEDS ORDERED: ROCEPHIN 1 Gm-D5w 50 ml Bag** 1 G/50 ML IVPB IV STA (14:27)
[2021-05-17] MEDS ORDERED: Zithromax 500 MG/ 250 ML NaCl Premix 500 MG/250 ML IVPB IV STA (14:27)
--- NOTE | 2021-05-17 14:32 | ERPHSYRPT ---
- History of Present Illness Time Seen by Provider: 05/17/21 14:28 Source: patient Exam Limitations: no limitations Patient Subjective Stated Complaint: Pt states "I started to have shortness of breath 2 days ago and It is getting worse. I spiked a fever of 101 today." Triage Nursing Assessment: Pt presented alert and oriented X 3, skin pwd. Pt a ble to speak in 5 to 6 word sentences pt in no apparent respiratory distress. Pt voice raspy, tachypneic. PT has wheezes and rales noted. Physician History: Pt states "I started to have shortness of breath 2 days ago and It is getting worse. I spiked a fever of 101 today." Patient is also complaining of shortness of breath mucopurulent coughing and fever with chills which all started since yesterday. Timing/Duration: yesterday Activities at Onset: none Severity of Dyspnea-Max: moderate Severity of Dyspnea-Current: moderate Associated Symptoms: cough, fever, wheezing, weakness Allergies/Adverse Reactions: No Known Drug Allergies Allergy (Verified 01/10/21 10:55) Home Medications: Pravastatin Sodium [Pravachol] 20 mg PO HS 02/15/16 [History] Budesonide/Formoterol Fumarate [Symbicort 160-4.5 Mcg Inhaler] 2 puffs IH BID 07/16/20 [History] Ferrous Sulfate 325 mg PO HS 11/08/20 [History] Furosemide 40 mg [Lasix 40 MG] 40 mg PO BID 11/08/20 [History] Metoprolol Succinate 50 mg [Toprol Xl 50 MG] 25 mg PO DAILY 11/08/20 [History] Potassium Chloride [K-Dur] 20 meq PO BID 11/08/20 [History] Sacubitril/Valsartan [Entresto 24 mg-26 mg Tablet] 1 tab PO BID 11/08/20 [Histo ry] Albuterol/Ipratropium 3ml Neb* [DUONEB 0.5-3 MG/3 ml Neb] 1 neb IH Q4HPRN PRN 01/06/21 [History] Amiodarone HCl [Pacerone] 200 mg PO DAILY 01/06/21 [History] Docusate Sodium 100 mg [Colace 100 MG] 100 mg PO BID 01/06/21 [History] Famotidine 20 mg [Pepcid 20 MG] 20 mg PO HS 01/06/21 [History] Magnesium Chloride 64 mg [Slow-Mag 64 MG] 64 mg PO HS 01/06/21 [History] Warfarin Sodium 5 mg [Coumadin 5 MG] 5 mg PO HS 01/06/21 [History] Hx Tetanus, Diphtheria Vaccination/Date Given: No Hx Influenza Vaccination/Date Given: No Hx Pneumococcal Vaccination/Date Given: No Immunizations Up to Date: Yes Travel Risk - International Travel Have you traveled outside of the country in past 3 weeks: No - Coronavirus Screening Are you exhibiting any of the following symptoms?: No Close contact with a COVID-19 positive Pt in past 14-21 Days: No - Vaccine Status Have you recieved a Covid-19 vaccination: No - Review of Systems Constitutional: Fever, Chills Eyes: No Symptoms Ears, Nose, & Throat: No Symptoms Respiratory: Cough, Dyspnea, Dyspnea on Exertion (VERA), Wheezing Cardiac: No Chest Pain, No Edema, No Syncope Abdominal/Gastrointestinal: No Abdominal Pain, No Nausea, No Vomiting, No Diarrhea Genitourinary Symptoms: No Dysuria Musculoskeletal: No Back Pain, No Neck Pain Skin: No Rash Neurological: No Dizziness, No Focal Weakness, No Sensory Changes Psychological: No Symptoms Endocrine: No Symptoms All Other Systems: Reviewed and Negative - Past Medical History Pertinent Past Medical History: Yes Neurological History: No Pertinent History ENT History: Cataracts Cardiac History: Arrhythmia, High Cholesterol, Hypertension, Other Respiratory History: CHF, COPD Endocrine Medical History: No Pertinent History Musculoskeletal History: No Pertinent History GI Medical History: No Pertinent History History: No Pertinent History Psycho-Social History: No Pertinent History Male Reproductive Disorders: No Pertinent History Other Medical History: 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 - Past Surgical History Past Surgical History: Yes Neuro Surgical History: No Pertinent History Cardiac: Valve Replacement Respiratory: No Pertinent History Gastrointestinal: No Pertinent History Genitourinary: No Pertinent History Musculoskeletal: No Pertinent History Male Surgical History: No Pertinent History - Social History Smoking Status: Former smoker Exposure to second hand smoke: No Drug Use: none Patient Lives Alone: No Significant Family History: no pertinent family hx - Nursing Vital Signs Nursing Vital Signs: Initial Vital Signs Temperature 99.9 F 05/17/21 13:03 Pulse Rate 91 H 05/17/21 13:03 Respiratory Rate 28 H 05/17/21 13:03 Blood Pressure 135/76 05/17/21 13:03 O2 Sat by Pulse Oximetry 98 05/17/21 13:03 Pain Scale Pain Intensity 4 - Physical Exam General Appearance: no apparent distress, alert Eye Exam: PERRL/EOMI Neck Exam: normal inspection, supple Respiratory Exam: diminished breath sounds, crackles/rales, rhonchi, wheezing Cardiovascular/Chest Exam: normal heart sounds, edema, irregular Abdominal/Gastrointestinal Exam: soft, No tenderness, No distention, No mass Extremity Exam: non-tender, normal range of motion, normal inspection, no calf tenderness, no pedal edema Neurologic Exam: alert, oriented x 3, cooperative, die keeper II-XII nml as tested, sensation nml, No motor deficits Skin Exam: normal color, warm, No dry SpO2 Interpretation: normal SpO2: 99 O2 Delivery: Room Air - Course Nursing assessment & vital signs reviewed: Yes EKG Interpreted by Me: Non-specific ST Changes Rhythm Strip: Atrial Fibrillation - Radiology Exams Chest X-ray Interpretation: Reviewed by me (right lower lobe pneumonia) Ordered Tests: Active Orders 24 hr Category Date Time Status EKG-ER Only STAT Care 05/17/21 13:15 Active Oxygen-ED Only Nasal Cannula 3 lpm Care 05/17/21 13:15 Active CHEST 1 VIEW (PORTABLE) Stat Exams 05/17/21 13:15 Taken BLOOD CULTURE Stat Lab 05/17/21 13:40 Received CBC W DIFF Stat Lab 05/17/21 13:15 Completed CMP Stat Lab 05/17/21 13:52 Completed CULTURE,SPUTUM Stat Lab 05/17/21 14:30 Ordered MAGNESIUM Stat Lab 05/17/21 13:52 Completed Manual Differential NC Stat Lab 05/17/21 13:15 Completed NT PRO BNP Stat Lab 05/17/21 13:52 Completed TROPONIN Q3H Lab 05/17/21 13:52 Completed TROPONIN Q3H Lab 05/17/21 16:15 Ordered TROPONIN Q3H Lab 05/17/21 19:15 Ordered TROPONIN Q3H Lab 05/17/21 22:15 Ordered TROPONIN Q3H Lab 05/18/21 01:15 Ordered Respiratory Therapy Assessment DAILY RT 05/17/21 13:49 Completed Medication Summary Generic Name Dose Route Start Last Admin Trade Name Tammy PRN Reason Stop Dose Admin Sodium Chloride 1,000 mls @ 50 mls/hr 05/17/21 13:15 05/17/21 13:21 Sodium Chloride 0.9% 1000 Ml IV 06/16/21 13:14 50 mls/hr .Q20H TREVOR Administration Ceftriaxone Sodium/Dextrose 1 g in 50 mls @ 100 mls/hr 05/17/21 14:27 05/17/21 14:35 Rocephin 1 Gm-D5w 50 Ml Bag IV 05/17/21 14:56 100 ml/hr STAT STA 100 mls/hr Administration Azithromycin 500 mg in 250 mls @ 250 mls/hr 05/17/21 14:27 Zithromax 500 Mg/ 250 Ml Nacl Premix IV 05/17/21 15:26 STAT STA Discontinued Medications Generic Name Dose Route Start Last Admin Trade Name Tammy PRN Reason Stop Dose Admin Albuterol/Ipratropium 3 ml 05/17/21 13:15 05/17/21 13:48 Duoneb 0.5-3 Mg/3 Ml Neb IH 05/17/21 13:16 3 ml STAT ONE Administration Albuterol/Ipratropium Confirm 05/17/21 13:54 Duoneb 0.5-3 Mg/3 Ml Neb Administered 05/17/21 13:55 Dose 3 ml IH .STK-MED ONE Ceftriaxone Sodium/Dextrose Confirm 05/17/21 14:33 Rocephin 1 Gm-D5w 50 Ml Bag Administered 05/17/21 14:34 Dose 1 g in 50 mls @ ud IV .STK-MED ONE Lab/Rad Data: Laboratory Result Diagrams 05/17/21 13:15 05/17/21 13:52 Laboratory Results 05/17/21 05/17/21 05/17/21 Range/Units 13:52 13:52 13:15 WBC 19.2 H (4.0-10.5) K/mm3 RBC 3.83 L (4.1-5.6) M/mm3 Hgb 10.6 L (12.5-18.0) gm/dl Hct 36.7 L (42-50) % MCV 95.8 (78-100) fl MCH 27.7 (26-32) pg MCHC 28.9 L (32-36) g/dl RDW 17.2 H (11.5-14.0) % Plt Count 136 L (150-450) K/mm3 MPV 11.1 H (7.5-11.0) fl Sodium 140 (137-145) mmol/L Potassium 4.3 (3.5-5.1) mmol/L Chloride 101 (98-107) mmol/L Carbon Dioxide 31 H (22-30) mmol/L Anion Gap 12.7 (5-15) MEQ/L BUN 37 H (9-20) mg/dL Creatinine 1.54 H (0.66-1.25) mg/dL Estimated GFR 46.5 ML/MIN Glucose 121 H (74-106) mg/dL Calcium 9.0 (8.4-10.2) mg/dL Magnesium 2.0 (1.6-2.3) mg/dL Total Bilirubin 1.10 (0.2-1.3) mg/dL AST 36 (17-59) U/L ALT 35 (0-50) U/L Alkaline Phosphatase 104 (38-126) U/L Troponin I 0.035 H (0.000-0.034) ng/mL NT-Pro-B Natriuret Pep 3710 H (0-1800) pg/mL Serum Total Protein 7.2 (6.3-8.2) g/dL Albumin 4.1 (3.5-5.0) g/dL - Progress Progress: re-examined Air Movement: fair Blood Culture(s) Obtained: Yes Antibiotics given: Yes Will see patient in: hospital (full admit) Counseled pt/family regarding: lab results, diagnosis, need for follow-up, rad results - Departure Departure Disposition: In-patient Admission Clinical Impression: Troponin level elevated Right lower lobe pneumonia Qualifiers: Pneumonia type: due to Pseudomonas Qualified Code(s): J15.1 - Pneumonia due to Pseudomonas Atrial fibrillation Qualifiers: Atrial fibrillation type: longstanding persistent Qualified Code(s): I48.11 - Longstanding persistent atrial fibrillation CHF (congestive heart failure) Qualifiers: Heart failure type: combined systolic and diastolic Heart failure chronicity: acute on chronic Qualified Code(s): I50.43 - Acute on chronic combined systolic (congestive) and diastolic (congestive) heart failure Condition: Fair Critical Care Time: Yes Critical Care Time(excluding separately billable procedures): Critical 30-74 mins Referrals: SKYLAR BLEVINS MD [Primary Care Provider] - Instructions: Heart Failure
[2021-05-17] MEDS ORDERED: ROCEPHIN 1 Gm-D5w 50 ml Bag** 1 G/50 ML IVPB IV ONE (14:33)
[2021-05-17] MEDS ORDERED: Zithromax 500 MG/ 250 ML NaCl Premix 500 MG/250 ML IVPB IV ONE (15:13)
[2021-05-17 16:22] LABS: ANISOCYTOSIS 1+; Basophil 1 % (0.0-1.0); Eosinophil 2 % (0.00-3.0); Lymphocytes 13 % (24-44); Monocyte 2 % (0.0-12.0); Neutrophils 82 % (36.-66.); Platelet Estimate NORMAL (NORMAL); Total Cells Counted 100; Toxic Granulation 1+
[2021-05-17] MEDS ORDERED: Miscellaneous Medication Order MC ONE (18:19)
[2021-05-17] MEDS ORDERED: DUONEB 0.5-3 MG/3 ml Neb IH PRN (18:19)
[2021-05-17 18:43] LABS: Appearance CLEAR (CLEAR); Bilirubin NEGATIVE (NEGATIVE); Blood SMALL Ery/ul (0-5); Glucose NEGATIVE (NEGATIVE); Ketones NEGATIVE (NEGATIVE); Leukocyte Esterase NEGATIVE (NEGATIVE); Nitrite NEGATIVE (NEGATIVE); Protein,Urine Dip 30 (Negative); Specific Gravity 1.013 (1.005-1.025); Urobilinogen NEGATIVE mg/dL (0-1)
[2021-05-17] MEDS: DUONEB 0.5-3 MG/3 ml Neb IH SCH (19:24)
[2021-05-17] MEDS: PATIENT OWN MEDICATION IH SCH (19:25)
[2021-05-17 19:46] LABS: Bacteria NONE SEEN /HPF (NEGATIVE)
[2021-05-17] MEDS: Klor Con 10 MEQ PO SCH (20:26)
[2021-05-17] MEDS: Colace 100 MG PO SCH (20:27)
[2021-05-17] MEDS: Pepcid 20 MG PO SCH (20:27)
[2021-05-17] MEDS: FEOSOL 325 MG PO SCH (20:27)
[2021-05-17] MEDS: ZOCOR 20MG PO SCH (20:27)
--- NOTE | 2021-05-17 20:41 | XRAY ---
Indication: Fever, cough, and congestion. Comparison: January 06, 2021. Portable chest again demonstrates right mid to lower lung infiltrate/atelectasis with small effusion. Left lung clear. Heart remains enlarged again with cardiac valve replacement. Bony thorax intact.
[2021-05-17] MEDS ORDERED: PULMICORT 0.5 MG/2 ML RESPULES IH SCH (22:00)
[2021-05-18] MEDS: DUONEB 0.5-3 MG/3 ml Neb IH SCH ×4 (00:58→19:11)
[2021-05-18 02:29] LABS: Hematocrit 34.3 % (42-50); Hemoglobin 10.1 gm/dl (12.5-18.0); Mean Cell Volume 96.6 fl (78-100); Mean Corpuscular Hemoglobin 28.5 pg (26-32); Mean Corpuscular Hgb Concent. 29.4 g/dl (32-36); Mean Platelet Volume 10.8 fl (7.5-11.0); Platelet Count 101 K/mm3 (150-450); Red Blood Count 3.55 M/mm3 (4.1-5.6); Red Cell Distribution Width 17.3 % (11.5-14.0); White Blood Count 16.1 K/mm3 (4.0-10.5)
[2021-05-18 02:43] LABS: ANION GAP 15.1 MEQ/L (5-15); Calcium 8.8 mg/dL (8.4-10.2); Creatinine 1 1.44 mg/dL (0.66-1.25); EST GLOMERULAR FILTRATION RATE 50.3 ML/MIN; Potassium 5.6 mmol/L (3.5-5.1)
[2021-05-18] MEDS ORDERED: ENTRESTO 49 MG-51 MG TABLET PO ONE (02:45)
[2021-05-18] MEDS: PATIENT OWN MEDICATION IH SCH ×2 (05:33→19:15)
[2021-05-18 06:20] LABS: ANISOCYTOSIS 1+; Lymphocytes 2 % (24-44); Neutrophils 98 % (36.-66.); Platelet Estimate NORMAL (NORMAL); Total Cells Counted 100; Toxic Granulation 1+
[2021-05-18] MEDS: DELTASONE 10 MG PO SCH (09:44)
[2021-05-18] MEDS: Cordarone 200 MG PO SCH (09:44)
[2021-05-18] MEDS: Klor Con 10 MEQ PO SCH ×3 (09:44→20:46)
[2021-05-18] MEDS: Colace 100 MG PO SCH ×2 (09:44→20:44)
[2021-05-18] MEDS: Toprol-Xl 25MG Tablets PO SCH (09:45)
[2021-05-18] MEDS: Pepcid 20 MG PO SCH ×2 (09:45→20:45)
[2021-05-18] MEDS: Lasix 40 MG PO SCH ×2 (09:45→17:05)
[2021-05-18] MEDS: THERAGRAN MULTIVITAMIN PO SCH (09:45)
[2021-05-18] MEDS: Zithromax 500 MG/ 250 ML NaCl Premix 500 MG/250 ML IVPB IV SCH (09:46)
[2021-05-18] MEDS: ROCEPHIN 1 Gm-D5w 50 ml Bag** 1 G/50 ML IVPB IV SCH (09:46)
[2021-05-18] MEDS: ENTRESTO 49 MG-51 MG TABLET PO SCH ×2 (09:47→20:44)
[2021-05-18] MEDS ORDERED: Pepcid 20 MG PO SCH (10:00)
[2021-05-18] MEDS ORDERED: Toprol Xl 50 MG PO SCH (10:00)
[2021-05-18] MEDS ORDERED: NON-FORMULARY ITEM (Potassium Chloride [K-Dur] 20 MEQ) PO SCH (10:00)
[2021-05-18] MEDS ORDERED: NON-FORMULARY ITEM (Sacubitril/Valsartan [Entresto 24 Mg-26 Mg Tablet] 1 TAB) PO SCH (10:00)
[2021-05-18] MEDS ORDERED: MULTIVITAMIN PO SCH (10:00)
[2021-05-18 16:17] LABS: INR 2.88 (0.8-3.0)
[2021-05-18] MEDS: Coumadin 1 MG PO SCH (17:08)
[2021-05-18] MEDS: ZOCOR 20MG PO SCH (20:45)
[2021-05-18] MEDS: MAG-OX 400 PO SCH (20:45)
[2021-05-18] MEDS: FEOSOL 325 MG PO SCH (20:45)
[2021-05-18] MEDS ORDERED: NON-FORMULARY ITEM (Pravastatin Sodium [Pravachol] 20 MG) PO SCH (22:00)
[2021-05-19] MEDS: DUONEB 0.5-3 MG/3 ml Neb IH SCH ×4 (00:39→19:08)
[2021-05-19] MEDS: PATIENT OWN MEDICATION IH SCH ×2 (06:57→19:08)
[2021-05-19] MEDS: ENTRESTO 49 MG-51 MG TABLET PO SCH ×2 (09:39→22:32)
[2021-05-19] MEDS: Toprol-Xl 25MG Tablets PO SCH (09:40)
[2021-05-19] MEDS: Colace 100 MG PO SCH ×2 (09:40→22:33)
[2021-05-19] MEDS: DELTASONE 10 MG PO SCH (09:40)
[2021-05-19] MEDS: Cordarone 200 MG PO SCH (09:40)
[2021-05-19] MEDS: THERAGRAN MULTIVITAMIN PO SCH (09:40)
[2021-05-19] MEDS: Klor Con 10 MEQ PO SCH ×2 (09:40→22:33)
[2021-05-19] MEDS: Pepcid 20 MG PO SCH ×2 (09:40→22:32)
[2021-05-19] MEDS: Lasix 40 MG PO SCH ×2 (09:40→18:00)
[2021-05-19] MEDS: ROCEPHIN 1 Gm-D5w 50 ml Bag** 1 G/50 ML IVPB IV SCH (09:41)
[2021-05-19] MEDS: Zithromax 500 MG/ 250 ML NaCl Premix 500 MG/250 ML IVPB IV SCH (10:36)
[2021-05-19 14:02] LABS: Hematocrit 33.4 % (42-50); Hemoglobin 9.7 gm/dl (12.5-18.0); Mean Cell Volume 96.5 fl (78-100); Platelet Count 118 K/mm3 (150-450); Red Blood Count 3.46 M/mm3 (4.1-5.6); Red Cell Distribution Width 17.2 % (11.5-14.0); White Blood Count 12.9 K/mm3 (4.0-10.5)
--- NOTE | 2021-05-19 14:07 | XRAY ---
Indication: Short of breath. Pneumonia. Comparison: May 17, 2021. Portable chest demonstrates increasing small right effusion with grossly stable right mid to lower lung infiltrate/atelectasis and cardiomegaly with cardiac valve replacement surgery. No new cardiopulmonary abnormalities.
[2021-05-19 14:24] LABS: ANION GAP 11.8 MEQ/L (5-15); BILIRUBIN,TOTAL 0.6 mg/dL (0.2-1.3); Calcium 8.6 mg/dL (8.4-10.2); Creatinine 1 1.54 mg/dL (0.66-1.25); EST GLOMERULAR FILTRATION RATE 46.5 ML/MIN; Potassium 4.8 mmol/L (3.5-5.1)
--- NOTE | 2021-05-19 14:44 | HP ---
CHIEF COMPLAINT: Shortness of breath. HISTORY OF PRESENT ILLNESS: The patient is a 81 year-old white male patient who reports that he began having a fever of 101F. He had some trouble with food just tasting poorly. He does have a history of lung problems. He is only able to speak five to six word sentences without having to take a breath. The patient was somewhat tachypneic and wheezes were noted in the emergency room. The patient's primary care doctor is Dr. Castro and he was the one who saw him in the emergency room. The patient was tested for COVID and having been negative the patient was admitted to our hospital facility for pneumonia on IV antibiotics. PAST MEDICAL/SURGICAL HISTORY: Otherwise significant for chronic obstructive pulmonary disease, hyperlipidemia, iron deficiency. He has a history otherwise of coronary artery disease and gastroesophageal reflux disease. HOME MEDICATIONS: Currently Pravastatin 20 mg, Symbicort 160-4.5 two puffs b.i.d., iron 325 mg once a day, Lasix 40 mg twice daily, metoprolol succinate 25 mg daily, potassium 20 mEq twice a day, Entresto 24-26 one tablet b.i.d., DuoNeb treatments, amiodarone 200 mg daily, docusate sodium 100 mg b.i.d., famotidine 20 mg at night, magnesium 64 mg at night, Coumadin 5 mg at night as well. ALLERGIES: NKDA. PHYSICAL EXAMINATION: The patient's vital signs on admission showed temperature 99.9F, pulse 91, respiratory rate 28, blood pressure 135/76. O2 saturation was 98%. HEENT: Appears to be normocephalic, atraumatic. The patient is wearing oxygen currently per nasal cannula. Oropharynx is somewhat dry. NECK: Supple without lymphadenopathy, thyromegaly or JVD. CHEST: Currently to me sounds clear although in the emergency room was noted to have crackles and wheezing. HEART: Currently regular without significant murmurs, rubs or gallops heard. ABDOMEN: Soft. No palpable masses. EXTREMITIES: Without significant cyanosis, clubbing. There is mild edema noted in the lower extremities. NEUROLOGIC: The patient is alert and oriented x3 with no focal deficits noted. LAB DATA AND TESTS: The patient's laboratory studies in the emergency room: Again the COVID test was negative. His white count was 19,200 with a hemoglobin of 10.6, PLT count 136,000. His differential showed a left shift with 82% neutrophils. No bands were noted. His troponin initially was 0.035. Glucose 121, BUN 37, creatinine 1.54. Electrolytes were essentially normal as were his liver enzymes. His pro-BNP was somewhat elevated at 3,710. A second troponin was 0.027. His x-ray revealed infiltrate present. A 12 lead EKG showed left bundle branch type pattern. He appears to be in a regular rhythm presently. ASSESSMENT: A patient with developing pneumonia, tachypnea, rales and wheezing. The patient was admitted and given prednisone at 10 mg a day, started on IV antibiotics, nebulizer treatments. We will add a flutter valve to help him expectorate better and he is encouraged to take fluids p.o.
[2021-05-19] MEDS: Coumadin 1 MG PO SCH (18:01)
--- NOTE | 2021-05-19 19:53 | PCM.NOTE ---
Date and Time: 05/19/211949 Subjective Assessment: still cough, very weak - Review of Systems Constitutional: No Fever, No Chills Eyes: No Symptoms Ears, Nose, & Throat: No Symptoms Respiratory: Cough, Orthopnea, Short Of Breath Cardiac: No Chest Pain, No Edema, No Syncope Abdominal/Gastrointestinal: No Abdominal Pain, No Nausea, No Vomiting, No Diarrhea Genitourinary Symptoms: No Dysuria Musculoskeletal: No Back Pain, No Neck Pain Skin: No Rash Neurological: No Dizziness, No Focal Weakness, No Sensory Changes Psychological: No Symptoms Endocrine: No Symptoms Hematologic/Lymphatic: No Symptoms Immunological/Allergic: No Symptoms Objective Exam General Appearance: no apparent distress, alert Neurologic Exam: alert, oriented x 3, cooperative, normal mood/affect, nml cerebellar function, sensation nml, No motor deficits Skin Exam: normal color, warm, dry Eye Exam: PERRL, EOMI, eyes nml inspection Ears, Nose, Throat Exam: normal ENT inspection, pharynx normal, moist mucous membranes Neck Exam: normal inspection, non-tender, supple, full range of motion Respiratory Exam: diminished breath sounds, crackles/rales, rhonchi, No respiratory distress Cardiovascular Exam: regular rate/rhythm, normal heart sounds Gastrointestinal/Abdomen Exam: soft, No tenderness, No mass Extremity Exam: normal inspection, normal range of motion Back Exam: normal inspection, normal range of motion, No CVA tenderness, No vertebral tenderness Male Genitalia Exam: deferred Rectal Exam: deferred OBJECTIVE DATA Vital Signs: Vital Signs - 24 hr Temp Pulse Resp BP Pulse Ox 05/19/21 19:10 68 22 98 05/19/21 16:10 98.5 F 71 24 114/56 98 05/19/21 12:30 64 20 96 05/19/21 11:40 98.2 F 66 22 110/56 97 05/19/21 07:32 97.8 F 59 L 20 116/57 98 05/19/21 06:57 60 22 98 05/19/21 04:00 97.8 F 64 20 114/56 98 05/19/21 00:41 61 20 98 05/18/21 23:17 97.8 F 65 21 108/55 98 05/18/21 20:00 97.6 F 66 21 108/51 99 Pain Assessment - Last Documented Pain Intensity 0 Intake and Output: Intake & Output 05/17/21 05/18/21 05/19/21 05/20/21 11:59 11:59 11:59 11:59 Intake Total 1795 1660 1042 Output Total 783 5030 825 Balance 1145 -690 217 Weight 90 kg 90.2 kg Lab Results: Lab Results-Last 24 Hours 05/19/21 05/19/21 Range/Units 14:01 14:01 WBC 12.9 H (4.0-10.5) K/mm3 RBC 3.46 L (4.1-5.6) M/mm3 Hgb 9.7 L (12.5-18.0) gm/dl Hct 33.4 L (42-50) % MCV 96.5 (78-100) fl MCH 28.0 (26-32) pg MCHC 29.0 L (32-36) g/dl RDW 17.2 H (11.5-14.0) % Plt Count 118 L (150-450) K/mm3 MPV 11.0 (7.5-11.0) fl Sodium 138 (137-145) mmol/L Potassium 4.8 (3.5-5.1) mmol/L Chloride 99 (98-107) mmol/L Carbon Dioxide 32 H (22-30) mmol/L Anion Gap 11.8 (5-15) MEQ/L BUN 51 H (9-20) mg/dL Creatinine 1.54 H (0.66-1.25) mg/dL Estimated GFR 46.5 ML/MIN Glucose 111 H (74-106) mg/dL Calcium 8.6 (8.4-10.2) mg/dL Total Bilirubin 0.60 (0.2-1.3) mg/dL AST 62 H (17-59) U/L ALT 69 H (0-50) U/L Alkaline Phosphatase 80 (38-126) U/L Serum Total Protein 7.0 (6.3-8.2) g/dL Albumin 4.0 (3.5-5.0) g/dL Radiology Exams: Radiology Procedures Category Date Time Status CHEST 1 VIEW (PORTABLE) Urgent Exams 05/19/21 12:56 Completed Multi-Disciplinary Progress Notes: Multi-Disciplinary Progress Notes 05/19/21 12:22 Case Management Note by Anca Flores [facility] PATIENT IS HERE INPT. THEY WILL NEED NOTIFIED AT TIME OF DC AT [phone]. THEY WILL NEED FAXED THE DC INSTRUCTIONS/DC MED LIST AND DC SUMMARY(IF AVAILABLE) FAXED TO THEM AT [phone] Initialized on 05/19/21 12:22 - END OF NOTE Assessment/Plan (1) Right lower lobe pneumonia Current Visit: Yes Status: Acute Qualifiers: Pneumonia type: due to Pseudomonas Qualified Code(s): J15.1 - Pneumonia due to Pseudomonas Assessment & Plan: Chief Complaint Diagnosis CHF Allergies Allergy/AdvReac Type Severity Reaction Status Date / Time No Known Drug Allergies Allergy Verified 01/10/21 10:55 Vital Signs (Last 24 hours) Temp Pulse Resp BP Pulse Ox 05/19/21 19:10 68 22 98 05/19/21 16:10 98.5 F 71 24 114/56 98 05/19/21 12:30 64 20 96 05/19/21 11:40 98.2 F 66 22 110/56 97 05/19/21 07:32 97.8 F 59 L 20 116/57 98 05/19/21 06:57 60 22 98 05/19/21 04:00 97.8 F 64 20 114/56 98 05/19/21 00:41 61 20 98 05/18/21 23:17 97.8 F 65 21 108/55 98 05/18/21 20:00 97.6 F 66 21 108/51 99 Home Medications Medication Instructions Recorded Confirmed Last Taken Type Multivitamin [Daily Multivitamin] 1 tab PO DAILY 05/17/21 05/17/21 05/16/21 History Prednisone 10 mg [Deltasone 10 10 mg PO DAILY 05/17/21 05/17/21 05/16/21 History mg] Warfarin Sodium 5 mg [Coumadin 4 mg PO HS 05/17/21 05/17/21 05/16/21 History 5 MG] Current Medications Generic Name Dose Route Start Last Admin Trade Name Freq PRN Reason Stop Dose Admin Albuterol/Ipratropium 3 ml 05/17/21 19:00 05/19/21 19:08 Duoneb 0.5-3 Mg/3 Ml Neb IH 06/16/21 18:59 3 ml Q6HRT TREVOR Administration Albuterol/Ipratropium 3 ml 05/17/21 18:19 Duoneb 0.5-3 Mg/3 Ml Neb IH 06/16/21 18:18 Q4HPRN PRN SHORTNESS OF BREATH/WHEEZING Amiodarone HCl 200 mg 05/18/21 10:00 05/19/21 09:40 Cordarone 200 Mg PO 06/17/21 09:59 200 mg DAILY TREVOR Administration Docusate Sodium 100 mg 05/17/21 22:00 05/19/21 09:40 Colace 100 Mg PO 06/16/21 21:59 100 mg BID TREOVR Administration Famotidine 20 mg 05/17/21 22:00 05/19/21 09:40 Pepcid 20 Mg PO 06/16/21 21:59 20 mg BID TREVOR Administration Ferrous Sulfate 325 mg 05/17/21 22:00 05/18/21 20:45 Feosol 325 Mg PO 06/16/21 21:59 325 mg HS TREVOR Administration Furosemide 40 mg 05/18/21 10:00 05/19/21 18:00 Lasix 40 Mg PO 06/17/21 09:59 40 mg BID DIURETIC TREVOR Administration Ceftriaxone Sodium/Dextrose 1 g in 50 mls @ 100 mls/hr 05/18/21 10:00 05/19/21 09:41 Rocephin 1 Gm-D5w 50 Ml Bag IV 05/21/21 09:59 100 mls/hr Q24H10 TREVOR Administration Azithromycin 500 mg in 250 mls @ 125 mls/hr 05/18/21 10:00 05/19/21 10:36 Zithromax 500 Mg/ 250 Ml Nacl Premix IV 06/17/21 09:59 125 mls/hr DAILY TREVOR Administration Magnesium Oxide 400 mg 05/18/21 22:00 05/18/21 20:45 Mag-Ox 400 PO 06/17/21 21:59 400 mg HS TREVOR Administration Metoprolol Succinate 25 mg 05/18/21 10:00 05/19/21 09:40 Toprol-Xl 25mg Tablets PO 06/17/21 09:59 25 mg DAILY TREVOR Administration Multivitamins Therapeutic 1 tab 05/18/21 10:00 05/19/21 09:40 Theragran Multivitamin PO 06/17/21 09:59 1 tab DAILY TREVOR Administration Patient Own Medication 2 each 05/17/21 19:00 05/19/21 19:08 Patient Own Medication IH 06/16/21 18:59 2 each BIDRT TREVOR Administration Potassium Chloride 20 meq 05/17/21 22:00 05/19/21 09:40 Klor Con 10 Meq PO 06/16/21 21:59 Not Given BID TREVOR Prednisone 10 mg 05/18/21 10:00 05/19/21 09:40 Deltasone 10 Mg PO 06/17/21 09:59 10 mg DAILY TREVOR Administration Sacubitril/Valsartan 0.5 tablet 05/18/21 10:00 05/19/21 09:39 Entresto 49 Mg-51 Mg Tablet PO 06/17/21 09:59 0.5 tablet BID TREVOR Administration Simvastatin 20 mg 05/17/21 22:00 05/18/21 20:45 Zocor 20mg PO 06/16/21 21:59 20 mg HS TREVOR Administration Warfarin Sodium 4 mg 05/18/21 18:00 05/19/21 18:01 Coumadin 1 Mg PO 06/17/21 17:59 4 mg DAILY@1800 TREVOR Administration Discontinued Medications Generic Name Dose Route Start Last Admin Trade Name Markq PRN Reason Stop Dose Admin Albuterol/Ipratropium 3 ml 05/17/21 13:15 05/17/21 13:48 Duoneb 0.5-3 Mg/3 Ml Neb IH 05/17/21 13:16 3 ml STAT ONE Administration Albuterol/Ipratropium Confirm 05/17/21 13:54 Duoneb 0.5-3 Mg/3 Ml Neb Administered 05/17/21 13:55 Dose 3 ml IH .STK-MED ONE Budesonide 0.5 mg 05/17/21 22:00 Pulmicort 0.5 Mg/2 Ml Respules IH 06/16/21 21:59 BID TREVOR Famotidine 20 mg 05/18/21 10:00 Pepcid 20 Mg PO 06/17/21 09:59 BID TREVOR Sodium Chloride 1,000 mls @ 50 mls/hr 05/17/21 13:15 05/17/21 13:21 Sodium Chloride 0.9% 1000 Ml IV 06/16/21 13:14 50 mls/hr .Q20H TREVOR Administration Ceftriaxone Sodium/Dextrose 1 g in 50 mls @ 100 mls/hr 05/17/21 14:27 05/17/21 15:09 Rocephin 1 Gm-D5w 50 Ml Bag IV 05/17/21 14:56 Infused STAT STA Infusion Azithromycin 500 mg in 250 mls @ 250 mls/hr 05/17/21 14:27 05/17/21 16:31 Zithromax 500 Mg/ 250 Ml Nacl Premix IV 05/17/21 15:26 Infused STAT STA Infusion Ceftriaxone Sodium/Dextrose Confirm 05/17/21 14:33 Rocephin 1 Gm-D5w 50 Ml Bag Administered 05/17/21 14:34 Dose 1 g in 50 mls @ ud IV .STK-MED ONE Azithromycin Confirm 05/17/21 15:13 Zithromax 500 Mg/ 250 Ml Nacl Premix Administered 05/17/21 15:14 Dose 500 mg in 250 mls @ ud IV .STK-MED ONE Sodium Chloride Confirm 05/17/21 13:18 Sodium Chloride 0.9% 1000 Ml Administered 05/17/21 13:19 Dose 1,000 mls @ ud .ROUTE .STK-MED ONE Metoprolol Succinate 25 mg 05/18/21 10:00 Toprol Xl 50 Mg PO 06/17/21 09:59 DAILY TREVOR Non-Formulary Medication 20 meq 05/18/21 10:00 Potassium Chloride [K-Dur] PO 06/17/21 09:59 BID TREVOR Non-Formulary Medication 20 mg 05/18/21 22:00 Pravastatin Sodium [Pravachol] PO 06/17/21 21:59 HS TREVOR Sacubitril/Valsartan 0.5 tablet 05/18/21 02:45 05/18/21 20:44 Entresto 49 Mg-51 Mg Tablet PO 05/18/21 02:46 Not Given NOW ONE Intake & Output (Last 24 hours) 05/17/21 05/18/21 05/19/21 05/20/21 11:59 11:59 11:59 11:59 Intake Total 1795 1660 1042 Output Total 650 2350 825 Balance 1145 -690 217 Weight 90 kg 90.2 kg Microbiology Results (Last 24 hours) 05/17/21 17:24 Urine, Void Urine Culture - Final <10K NORMAL SKIN MOY PROBABLE SKIN CONTAMINANT 05/17/21 13:46 Blood Blood Culture Gram Stain - Pending 05/17/21 13:46 Blood Blood Culture - Preliminary NO GROWTH TO DATE 05/17/21 13:40 Blood Blood Culture Gram Stain - Pending 05/17/21 13:40 Blood Blood Culture - Preliminary NO GROWTH TO DATE Laboratory Results (Last 24 hours) 05/19/21 05/19/21 14:01 14:01 WBC 12.9 H RBC 3.46 L Hgb 9.7 L Hct 33.4 L MCV 96.5 MCH 28.0 MCHC 29.0 L RDW 17.2 H Plt Count 118 L MPV 11.0 Sodium 138 Potassium 4.8 Chloride 99 Carbon Dioxide 32 H Anion Gap 11.8 BUN 51 H Creatinine 1.54 H Estimated GFR 46.5 Glucose 111 H Calcium 8.6 Total Bilirubin 0.60 AST 62 H ALT 69 H Alkaline Phosphatase 80 Serum Total Protein 7.0 Albumin 4.0 Orders (Last 24 hours) Category Date Time Status CHEST 1 VIEW (PORTABLE) Urgent Exams 05/19/21 12:56 Completed CBC Urgent Lab 05/19/21 14:01 Completed CMP Urgent Lab 05/19/21 14:01 Completed Magnesium Oxide 400 mg [Mag-Ox 400] Med 05/18/21 22:00 Active 400 mg PO HS Pravastatin Sodium [Pravachol] Med 05/18/21 22:00 Discontinued 20 mg PO HS Patient Care Notes (Last 24 hours) 05/19/21 12:22 Case Management Note by Anca Flores [facility] PATIENT IS HERE INPT. THEY WILL NEED NOTIFIED AT TIME OF DC AT [phone]. THEY WILL NEED FAXED THE DC INSTRUCTIONS/DC MED LIST AND DC SUMMARY(IF AVAILABLE) FAXED TO THEM AT [phone] Initialized on 05/19/21 12:22 - END OF NOTE Code(s): J18.9 - PNEUMONIA, UNSPECIFIED ORGANISM (2) Atrial fibrillation Current Visit: Yes Status: Chronic Qualifiers: Atrial fibrillation type: longstanding persistent Qualified Code(s): I48.11 - Longstanding persistent atrial fibrillation Code(s): I48.91 - UNSPECIFIED ATRIAL FIBRILLATION (3) CHF (congestive heart failure) Current Visit: Yes Status: Chronic Qualifiers: Heart failure type: combined systolic and diastolic Heart failure chronicity: acute on chronic Qualified Code(s): I50.43 - Acute on chronic combined systolic (congestive) and diastolic (congestive) heart failure Code(s): I50.9 - HEART FAILURE, UNSPECIFIED (4) COPD (chronic obstructive pulmonary disease) Current Visit: No Status: Chronic Qualifiers:
[2021-05-19] MEDS: FEOSOL 325 MG PO SCH (22:32)
[2021-05-19] MEDS: ZOCOR 20MG PO SCH (22:32)
[2021-05-19] MEDS: MAG-OX 400 PO SCH (22:45)
[2021-05-20] MEDS: DUONEB 0.5-3 MG/3 ml Neb IH SCH ×4 (01:25→19:24)
[2021-05-20] MEDS: PATIENT OWN MEDICATION IH SCH ×2 (07:49→19:24)
[2021-05-20 09:11] LABS: Hematocrit 35.3 % (42-50); Hemoglobin 10.5 gm/dl (12.5-18.0); Mean Cell Volume 95.4 fl (78-100); Mean Corpuscular Hemoglobin 28.4 pg (26-32); Mean Corpuscular Hgb Concent. 29.7 g/dl (32-36); Mean Platelet Volume 9.9 fl (7.5-11.0); Platelet Count 141 K/mm3 (150-450); White Blood Count 13.4 K/mm3 (4.0-10.5)
[2021-05-20 09:48] LABS: ALBUMIN 4.2 g/dL (3.5-5.0); ANION GAP 13.2 MEQ/L (5-15); BILIRUBIN,TOTAL 0.7 mg/dL (0.2-1.3); Creatinine 1 1.63 mg/dL (0.66-1.25); EST GLOMERULAR FILTRATION RATE 43.6 ML/MIN; Potassium 4.7 mmol/L (3.5-5.1); Total Protein 7.4 g/dL (6.3-8.2)
[2021-05-20] MEDS: ROCEPHIN 1 Gm-D5w 50 ml Bag** 1 G/50 ML IVPB IV SCH (10:04)
[2021-05-20] MEDS: Klor Con 10 MEQ PO SCH ×2 (10:09→21:56)
[2021-05-20] MEDS: DELTASONE 10 MG PO SCH (10:10)
[2021-05-20] MEDS: Colace 100 MG PO SCH ×2 (10:10→21:56)
[2021-05-20] MEDS: ENTRESTO 49 MG-51 MG TABLET PO SCH ×2 (10:10→21:56)
[2021-05-20] MEDS: Toprol-Xl 25MG Tablets PO SCH (10:10)
[2021-05-20] MEDS: THERAGRAN MULTIVITAMIN PO SCH (10:11)
[2021-05-20] MEDS: Zithromax 500 MG/ 250 ML NaCl Premix 500 MG/250 ML IVPB IV SCH (10:12)
[2021-05-20] MEDS: Lasix 40 MG PO SCH ×2 (10:12→16:15)
[2021-05-20] MEDS: Cordarone 200 MG PO SCH (10:12)
[2021-05-20] MEDS: Pepcid 20 MG PO SCH ×2 (10:22→21:56)
[2021-05-20 10:31] LABS: BAND 1 % (0.0-2.0); Eosinophil 3 % (0.00-3.0); Lymphocytes 6 % (24-44); Monocyte 8 % (0.0-12.0); Neutrophils 82 % (36.-66.); Total Cells Counted 100
[2021-05-20 10:32] LABS: Platelet Estimate DECREASED (NORMAL)
[2021-05-20] MEDS: Coumadin 1 MG PO SCH (16:15)
[2021-05-20] MEDS ORDERED: Sterile H2O 10 ml IJ ONE (16:22)
[2021-05-20] MEDS: FEOSOL 325 MG PO SCH (21:56)
[2021-05-20] MEDS: MAG-OX 400 PO SCH (21:56)
[2021-05-20] MEDS: ZOCOR 20MG PO SCH (21:56)
[2021-05-21] MEDS: DUONEB 0.5-3 MG/3 ml Neb IH SCH ×4 (02:10→19:44)
[2021-05-21] MEDS: PATIENT OWN MEDICATION IH SCH ×2 (07:13→19:44)
--- NOTE | 2021-05-21 08:26 | PCM.NOTE ---
Date and Time: 05/20/21823 Subjective Assessment: still very weak. shortness of breath - Review of Systems Constitutional: No Fever, No Chills Eyes: No Symptoms Ears, Nose, & Throat: No Symptoms Respiratory: Cough, Orthopnea, Short Of Breath Cardiac: No Chest Pain, No Edema, No Syncope Abdominal/Gastrointestinal: No Abdominal Pain, No Nausea, No Vomiting, No Diarrhea Genitourinary Symptoms: No Dysuria Musculoskeletal: No Back Pain, No Neck Pain Skin: No Rash Neurological: No Dizziness, No Focal Weakness, No Sensory Changes Psychological: No Symptoms Endocrine: No Symptoms Hematologic/Lymphatic: No Symptoms Immunological/Allergic: No Symptoms Objective Exam General Appearance: no apparent distress, alert Neurologic Exam: alert, oriented x 3, cooperative, normal mood/affect, nml cerebellar function, sensation nml, No motor deficits Skin Exam: normal color, warm, dry Eye Exam: PERRL, EOMI, eyes nml inspection Ears, Nose, Throat Exam: normal ENT inspection, pharynx normal, moist mucous membranes Neck Exam: normal inspection, non-tender, supple, full range of motion Respiratory Exam: diminished breath sounds, crackles/rales, rhonchi, wheezing, No respiratory distress Cardiovascular Exam: regular rate/rhythm, normal heart sounds Gastrointestinal/Abdomen Exam: soft, No tenderness, No mass Extremity Exam: normal inspection, normal range of motion Back Exam: normal inspection, normal range of motion, No CVA tenderness, No vertebral tenderness Male Genitalia Exam: deferred Rectal Exam: deferred OBJECTIVE DATA Vital Signs: Vital Signs - 24 hr Temp Pulse Resp BP Pulse Ox 05/21/21 07:11 67 19 92 L 05/21/21 03:54 97.9 F 63 21 105/55 96 05/21/21 02:11 58 L 20 97 05/21/21 00:00 97.8 F 80 20 101/54 98 05/20/21 20:00 98.2 F 72 19 100/54 96 05/20/21 19:25 72 20 95 05/20/21 16:00 98.1 F 61 19 117/78 97 05/20/21 12:29 64 20 97 05/20/21 12:00 98.9 F 77 21 121/65 94 L Pain Assessment - Last Documented Pain Intensity 5 Intake and Output: Intake & Output 05/18/21 05/19/21 05/20/2121 11:59 11:59 11:59 11:59 Intake Total 1795 1660 1882 1300 Output Total 852 6587 1578 262 Balance 1145 -690 307 -1325 Weight 90 kg 90.2 kg 93.6 kg Lab Results: Lab Results-Last 24 Hours 05/20/21 05/20/21 Range/Units 09:05 09:05 WBC 13.4 H (4.0-10.5) K/mm3 RBC 3.70 L (4.1-5.6) M/mm3 Hgb 10.5 L (12.5-18.0) gm/dl Hct 35.3 L (42-50) % MCV 95.4 (78-100) fl MCH 28.4 (26-32) pg MCHC 29.7 L (32-36) g/dl RDW 17.0 H (11.5-14.0) % Plt Count 141 L (150-450) K/mm3 MPV 9.9 (7.5-11.0) fl Segmented Neutrophils 82 H (36.-66.) % Band Neutrophils 1 (0.0-2.0) % Lymphocytes (Manual) 6 L (24-44) % Monocytes (Manual) 8 (0.0-12.0) % Eosinophils (Manual) 3 (0.00-3.0) % Platelet Estimate DECREASED (NORMAL) RBC Morphology NORMAL Sodium 140 (137-145) mmol/L Potassium 4.7 (3.5-5.1) mmol/L Chloride 97 L (98-107) mmol/L Carbon Dioxide 35 H (22-30) mmol/L Anion Gap 13.2 (5-15) MEQ/L BUN 50 H (9-20) mg/dL Creatinine 1.63 H (0.66-1.25) mg/dL Estimated GFR 43.6 ML/MIN Glucose 115 H (74-106) mg/dL Calcium 9.0 (8.4-10.2) mg/dL Total Bilirubin 0.70 (0.2-1.3) mg/dL AST 53 (17-59) U/L ALT 75 H (0-50) U/L Alkaline Phosphatase 92 (38-126) U/L Serum Total Protein 7.4 (6.3-8.2) g/dL Albumin 4.2 (3.5-5.0) g/dL Radiology Exams: Radiology Procedures Category Date Time Status CHEST 1 VIEW (PORTABLE) Urgent Exams 05/19/21 12:56 Completed Multi-Disciplinary Progress Notes: Multi-Disciplinary Progress Notes 05/20/21 16:23 Physical Therapy Note by Brittany Burden PT. REFUSED PT EVAL X 2 TODAY D/T C/O NOT BEING ABLE TO BREATHE WELL. O2 SATS 96% ON 3 L O2 AT REST. NSG AND PT ABLE TO CONVINCE PT. TO GET OUT OF BED FINALLY. ASSISTED NSG W/ TRANSFER TO CHAIR. SIT TO STAND SBA; PT. TOOK 2-3 STEPS TO CHAIR W/ SBA WITHOUT LOB. WILL ATTEMPT EVAL AGAIN TOMORROW BUT FEEL CARDIOPULMONARY RESERVE IS LIMITED. Initialized on 05/20/21 16:23 - END OF NOTE 05/20/21 13:10 (created 05/20/21 13:55) Case Management Note by Bertha Price DR ROUNDED AND EVALUATED, DISCUSSED WITH PT THAT HE NEEDED TO BE UP IN CHAIR AND AMBULATING. PT STILL WITH C/O NOT FEELING WELL AND SOB. DID VERBALIZE UNDERSTANDING OF WHY HE NEEDED TO BE UP, FOR LUNG EXPANSION. ALSO, NEW ORDERS FOR RT FOR PERCUSSION AND INCENTIVE SPIROMETRY. DENIES ADDNL NEEDS AT THIS TIME. WILL FOLLOW FOR ALL DC NEEDS. Initialized on 05/20/21 13:55 - END OF NOTE 05/20/21 10:23 Case Management Note by Anca Flores NO CHANGE IN DC PLANS AT THIS TIME Initialized on 05/20/21 10:23 - END OF NOTE Assessment/Plan (1) Right lower lobe pneumonia Current Visit: Yes Status: Acute Qualifiers: Pneumonia type: due to Pseudomonas Qualified Code(s): J15.1 - Pneumonia due to Pseudomonas Assessment & Plan: Chief Complaint Diagnosis CHF, PNEUMONIA Allergies Allergy/AdvReac Type Severity Reaction Status Date / Time No Known Drug Allergies Allergy Verified 01/10/21 10:55 Vital Signs (Last 24 hours) Temp Pulse Resp BP Pulse Ox 05/21/21 07:11 67 19 92 L 05/21/21 03:54 97.9 F 63 21 105/55 96 05/21/21 02:11 58 L 20 97 05/21/21 00:00 97.8 F 80 20 101/54 98 05/20/21 20:00 98.2 F 72 19 100/54 96 05/20/21 19:25 72 20 95 05/20/21 16:00 98.1 F 61 19 117/78 97 05/20/21 12:29 64 20 97 05/20/21 12:00 98.9 F 77 21 121/65 94 L Home Medications Medication Instructions Recorded Confirmed Last Taken Type Multivitamin [Daily Multivitamin] 1 tab PO DAILY 05/17/21 05/17/21 05/16/21 History Prednisone 10 mg [Deltasone 10 10 mg PO DAILY 05/17/21 05/17/21 05/16/21 History mg] Warfarin Sodium 5 mg [Coumadin 4 mg PO HS 05/17/21 05/17/21 05/16/21 History 5 MG] Current Medications Generic Name Dose Route Start Last Admin Trade Name Freq PRN Reason Stop Dose Admin Albuterol/Ipratropium 3 ml 05/17/21 19:00 05/21/21 07:11 Duoneb 0.5-3 Mg/3 Ml Neb IH 06/16/21 18:59 3 ml Q6HRT TREVOR Administration Albuterol/Ipratropium 3 ml 05/17/21 18:19 Duoneb 0.5-3 Mg/3 Ml Neb IH 06/16/21 18:18 Q4HPRN PRN SHORTNESS OF BREATH/WHEEZING Amiodarone HCl 200 mg 05/18/21 10:00 05/20/21 10:12 Cordarone 200 Mg PO 06/17/21 09:59 200 mg DAILY TREVOR Administration Docusate Sodium 100 mg 05/17/21 22:00 05/20/21 21:56 Colace 100 Mg PO 06/16/21 21:59 100 mg BID TREVOR Administration Famotidine 20 mg 05/17/21 22:00 05/20/21 21:56 Pepcid 20 Mg PO 06/16/21 21:59 20 mg BID TREVOR Administration Ferrous Sulfate 325 mg 05/17/21 22:00 05/20/21 21:56 Feosol 325 Mg PO 06/16/21 21:59 325 mg HS TREVOR Administration Furosemide 40 mg 05/18/21 10:00 05/20/21 16:15 Lasix 40 Mg PO 06/17/21 09:59 40 mg BID DIURETIC TREVOR Administration Ceftriaxone Sodium/Dextrose 1 g in 50 mls @ 100 mls/hr 05/18/21 10:00 05/20/21 10:04 Rocephin 1 Gm-D5w 50 Ml Bag IV 05/22/21 09:59 100 mls/hr Q24H10 TREVOR Administration Azithromycin 500 mg in 250 mls @ 125 mls/hr 05/18/21 10:00 05/20/21 10:12 Zithromax 500 Mg/ 250 Ml Nacl Premix IV 06/17/21 09:59 125 mls/hr DAILY TREVOR Administration Magnesium Oxide 400 mg 05/18/21 22:00 05/20/21 21:56 Mag-Ox 400 PO 06/17/21 21:59 400 mg HS TREVOR Administration Metoprolol Succinate 25 mg 05/18/21 10:00 05/20/21 10:10 Toprol-Xl 25mg Tablets PO 06/17/21 09:59 25 mg DAILY TREVOR Administration Multivitamins Therapeutic 1 tab 05/18/21 10:00 05/20/21 10:11 Theragran Multivitamin PO 06/17/21 09:59 1 tab DAILY TREVOR Administration Patient Own Medication 2 each 05/17/21 19:00 05/21/21 07:13 Patient Own Medication IH 06/16/21 18:59 2 each BIDRT TREVOR Administration Potassium Chloride 20 meq 05/17/21 22:00 05/20/21 21:56 Klor Con 10 Meq PO 06/16/21 21:59 20 meq BID TREVOR Administration Prednisone 10 mg 05/18/21 10:00 05/20/21 10:10 Deltasone 10 Mg PO 06/17/21 09:59 10 mg DAILY TREVOR Administration Sacubitril/Valsartan 0.5 tablet 05/18/21 10:00 05/20/21 21:56 Entresto 49 Mg-51 Mg Tablet PO 06/17/21 09:59 0.5 tablet BID TREVOR Administration Simvastatin 20 mg 05/17/21 22:00 05/20/21 21:56 Zocor 20mg PO 06/16/21 21:59 20 mg HS TREVOR Administration Warfarin Sodium 4 mg 05/18/21 18:00 05/20/21 16:15 Coumadin 1 Mg PO 06/17/21 17:59 4 mg DAILY@1800 TREVOR Administration Discontinued Medications Generic Name Dose Route Start Last Admin Trade Name Markq PRN Reason Stop Dose Admin Albuterol/Ipratropium 3 ml 05/17/21 13:15 05/17/21 13:48 Duoneb 0.5-3 Mg/3 Ml Neb IH 05/17/21 13:16 3 ml STAT ONE Administration Albuterol/Ipratropium Confirm 05/17/21 13:54 Duoneb 0.5-3 Mg/3 Ml Neb Administered 05/17/21 13:55 Dose 3 ml IH .STK-MED ONE Budesonide 0.5 mg 05/17/21 22:00 Pulmicort 0.5 Mg/2 Ml Respules IH 06/16/21 21:59 BID TREVOR Famotidine 20 mg 05/18/21 10:00 Pepcid 20 Mg PO 06/17/21 09:59 BID TREVOR Sodium Chloride 1,000 mls @ 50 mls/hr 05/17/21 13:15 05/17/21 13:21 Sodium Chloride 0.9% 1000 Ml IV 06/16/21 13:14 50 mls/hr .Q20H TREVOR Administration Ceftriaxone Sodium/Dextrose 1 g in 50 mls @ 100 mls/hr 05/17/21 14:27 05/17/21 15:09 Rocephin 1 Gm-D5w 50 Ml Bag IV 05/17/21 14:56 Infused STAT STA Infusion Azithromycin 500 mg in 250 mls @ 250 mls/hr 05/17/21 14:27 05/17/21 16:31 Zithromax 500 Mg/ 250 Ml Nacl Premix IV 05/17/21 15:26 Infused STAT STA Infusion Ceftriaxone Sodium/Dextrose Confirm 05/17/21 14:33 Rocephin 1 Gm-D5w 50 Ml Bag Administered 05/17/21 14:34 Dose 1 g in 50 mls @ ud IV .STK-MED ONE Azithromycin Confirm 05/17/21 15:13 Zithromax 500 Mg/ 250 Ml Nacl Premix Administered 05/17/21 15:14 Dose 500 mg in 250 mls @ ud IV .STK-MED ONE Sodium Chloride Confirm 05/17/21 13:18 Sodium Chloride 0.9% 1000 Ml Administered 05/17/21 13:19 Dose 1,000 mls @ ud .ROUTE .STK-MED ONE Metoprolol Succinate 25 mg 05/18/21 10:00 Toprol Xl 50 Mg PO 06/17/21 09:59 DAILY TREVOR Non-Formulary Medication 20 meq 05/18/21 10:00 Potassium Chloride [K-Dur] PO 06/17/21 09:59 BID TREVOR Non-Formulary Medication 20 mg 05/18/21 22:00 Pravastatin Sodium [Pravachol] PO 06/17/21 21:59 HS [facility] Sacubitril/Valsartan 0.5 tablet 05/18/21 02:45 05/18/21 20:44 Entresto 49 Mg-51 Mg Tablet PO 05/18/21 02:46 Not Given NOW ONE Sterile Water Confirm 05/20/21 16:22 Sterile H2o 10 Ml Administered 05/20/21 16:23 Dose 10 ml IJ .STK-MED ONE Intake & Output (Last 24 hours) 05/18/21 05/19/21 05/20/21 05/21/21 11:59 11:59 11:59 11:59 Intake Total 1795 1660 1882 1300 Output Total 650 2350 1575 2625 Balance 1145 -690 307 -1325 Weight 90 kg 90.2 kg 93.6 kg Microbiology Results (Last 24 hours) 05/17/21 14:30 Sputum - Expectorant Gram Stain - Final 05/17/21 14:30 Sputum - Expectorant Sputum Culture - Final Staphylococcus Aureus Laboratory Results (Last 24 hours) 05/20/21 05/20/21 09:05 09:05 WBC 13.4 H RBC 3.70 L Hgb 10.5 L Hct 35.3 L MCV 95.4 MCH 28.4 MCHC 29.7 L RDW 17.0 H Plt Count 141 L MPV 9.9 Segmented Neutrophils 82 H Band Neutrophils 1 Lymphocytes (Manual) 6 L Monocytes (Manual) 8 Eosinophils (Manual) 3 Platelet Estimate DECREASED RBC Morphology NORMAL Sodium 140 Potassium 4.7 Chloride 97 L Carbon Dioxide 35 H Anion Gap 13.2 BUN 50 H Creatinine 1.63 H Estimated GFR 43.6 Glucose 115 H Calcium 9.0 Total Bilirubin 0.70 AST 53 ALT 75 H Alkaline Phosphatase 92 Serum Total Protein 7.4 Albumin 4.2 Orders (Last 24 hours) Category Date Time Status Up in Chair TID Activity 05/20/21 13:53 Active Ambulate Patient ROUTINE Care 05/20/21 13:53 Active CBC W DIFF Stat Lab 05/20/21 09:05 Completed CMP Stat Lab 05/20/21 09:05 Completed Manual Differential NC Stat Lab 05/20/21 09:05 Completed Water For Injection,Sterile [Sterile H2O 10 ml] Med 05/20/21 16:22 Discontinued 10 ml IJ .STK-MED ONE PT Eval & Treat ( Order) ONCE PT 05/20/21 08:49 Active Incentive Spirometry Q6H RT 05/20/21 19:00 Active RT Miscellaneous Order ROUTINE RT 05/20/21 13:54 Completed Patient Care Notes (Last 24 hours) 05/20/21 16:23 Physical Therapy Note by Brittany Burden PT. REFUSED PT EVAL X 2 TODAY D/T C/O NOT BEING ABLE TO BREATHE WELL. O2 SATS 96% ON 3 L O2 AT REST. NSG AND PT ABLE TO CONVINCE PT. TO GET OUT OF BED FINALLY. ASSISTED NSG W/ TRANSFER TO CHAIR. SIT TO STAND SBA; PT. TOOK 2-3 STEPS TO CHAIR W/ SBA WITHOUT LOB. WILL ATTEMPT EVAL AGAIN TOMORROW BUT FEEL CARDIOPULMONARY RESERVE IS LIMITED. Initialized on 05/20/21 16:23 - END OF NOTE 05/20/21 13:10 (created 05/20/21 13:55) Case Management Note by Bertha Price DR ROUNDED AND EVALUATED, DISCUSSED WITH PT THAT HE NEEDED TO BE UP IN CHAIR AND AMBULATING. PT STILL WITH C/O NOT FEELING WELL AND SOB. DID VERBALIZE UNDERSTANDING OF WHY HE NEEDED TO BE UP, FOR LUNG EXPANSION. ALSO, NEW ORDERS FOR RT FOR PERCUSSION AND INCENTIVE SPIROMETRY. DENIES ADDNL NEEDS AT THIS TIME. WILL FOLLOW FOR ALL DC NEEDS. Initialized on 05/20/21 13:55 - END OF NOTE 05/20/21 10:23 Case Management Note by Anca Flores NO CHANGE IN DC PLANS AT THIS TIME Initialized on 05/20/21 10:23 - END OF NOTE 05/20/21 08:39 Nursing Note by ReidTrinidad Pricebagita, son, called for update on Pt. Questioned possible DC date, unable to provide date at this time. Initialized on 05/20/21 08:39 - END OF NOTE Code(s): J18.9 - PNEUMONIA, UNSPECIFIED ORGANISM (2) Atrial fibrillation Current Visit: Yes Status: Chronic Qualifiers: Atrial fibrillation type: longstanding persistent Qualified Code(s): I48.11 - Longstanding persistent atrial fibrillation Code(s): I48.91 - UNSPECIFIED ATRIAL FIBRILLATION (3) CHF (congestive heart failure) Current Visit: Yes Status: Chronic Qualifiers: Heart failure type: combined systolic and diastolic Heart failure chronicity: acute on chronic Qualified Code(s): I50.43 - Acute on chronic combined systolic (congestive) and diastolic (congestive) heart failure Code(s): I50.9 - HEART FAILURE, UNSPECIFIED (4) COPD (chronic obstructive pulmonary disease) Current Visit: No Status: Chronic Qualifiers:
--- NOTE | 2021-05-21 09:42 | PCM.CONS ---
History of Present Illness - Reason for Consult Chief Complaint: CHF, PNEUMONIA Requesting Provider: SKYLAR BLEVINS Consulting Provider: ROSALIO BILLINGSLEY History of Present Illness: Mr.ALUMBAUGH SHEIKH is a 81 year old male. Medications & Allergies Home Medications: Home Medication List Pravastatin Sodium [Pravachol] 20 mg PO HS 02/15/16 [History Confirmed 05/17/21] Budesonide/Formoterol Fumarate [Symbicort 160-4.5 Mcg Inhaler] 2 puffs IH BID 07/16/20 [History Confirmed 05/17/21] Ferrous Sulfate 325 mg PO HS 11/08/20 [History Confirmed 05/17/21] Furosemide 40 mg [Lasix 40 MG] 40 mg PO BID 11/08/20 [History Confirmed 05/17/21] Metoprolol Succinate 50 mg [Toprol Xl 50 MG] 25 mg PO DAILY 11/08/20 [History Confirmed 05/17/21] Potassium Chloride [K-Dur] 20 meq PO BID 11/08/20 [History Confirmed 05/17/21] Sacubitril/Valsartan [Entresto 24 mg-26 mg Tablet] 1 tab PO BID 11/08/20 [History Confirmed 05/17/21] Albuterol/Ipratropium 3ml Neb* [DUONEB 0.5-3 MG/3 ml Neb] 1 neb IH Q4HPRN PRN 01/06/21 [History Confirmed 05/17/21] Amiodarone HCl [Pacerone] 200 mg PO DAILY 01/06/21 [History Confirmed 05/17/21] Docusate Sodium 100 mg [Colace 100 MG] 100 mg PO BID 01/06/21 [History Confirmed 05/17/21] Famotidine 20 mg [Pepcid 20 MG] 20 mg PO BID 01/06/21 [History Confirmed 05/17/21] Magnesium Chloride 64 mg [Slow-Mag 64 MG] 64 mg PO HS 01/06/21 [History Confirmed 05/17/21] Multivitamin [Daily Multivitamin] 1 tab PO DAILY 05/17/21 [History Confirmed 05/17/21] Prednisone 10 mg [Deltasone 10 mg] 10 mg PO DAILY 05/17/21 [History Confirmed 05/17/21] Warfarin Sodium 5 mg [Coumadin 5 MG] 4 mg PO HS 05/17/21 [History Confirmed 05/17/21] Allergies/Adverse Reactions: Allergies Allergy/AdvReac Type Severity Reaction Status Date / Time No Known Drug Allergies Allergy Verified 01/10/21 10:55 - Past Medical History Past Medical History: Yes Neurological History: No Pertinent History ENT History: Cataracts Cardiac History: Arrhythmia, High Cholesterol, Hypertension, Other Respiratory History: CHF, COPD Endocrine Medical History: No Pertinent History Musculoskelatal History: No Pertinent History GI Medical History: No Pertinent History History: No Pertinent History Pyscho-Social History: No Pertinent History Male Reproductive Disorders: No Pertinent History Comment: 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 - Past Surgical History Past Surgical History: Yes Neuro Surgical History: No Pertinent History Cardiac History: Valve Replacement Respiratory Surgery: No Pertinent History GI Surgical History: No Pertinent History Genitourinary Surgical Hx: No Pertinent History Musculskeletal Surgical Hx: No Pertinent History Male Surgical History: No Pertinent History - Social History Smoking Status: Never smoker Exposure to second hand smoke: No Alcohol: None Drug Use: none Significant Family History: no pertinent family hx - Physical Exam Vital Signs: Vital Signs - 24 hr Temp Pulse Resp BP Pulse Ox 05/21/21 08:00 98.4 F 81 20 115/56 93 L 05/21/21 07:11 67 19 92 L 05/21/21 03:54 97.9 F 63 21 105/55 96 05/21/21 02:11 58 L 20 97 05/21/21 00:00 97.8 F 80 20 101/54 98 05/20/21 20:00 98.2 F 72 19 100/54 96 05/20/21 19:25 72 20 95 05/20/21 16:00 98.1 F 61 19 117/78 97 05/20/21 12:29 64 20 97 05/20/21 12:00 98.9 F 77 21 121/65 94 L General Appearance: no apparent distress, alert Neurologic Exam: alert, oriented x 3, cooperative, normal mood/affect, nml cerebellar function, nml station & gait, sensation nml, No motor deficits Results - Labs Lab/Micro Results: Lab Results-Last 24 Hours 05/20/21 05/20/21 Range/Units 09:05 09:05 Segmented Neutrophils 82 H (36.-66.) % Band Neutrophils 1 (0.0-2.0) % Lymphocytes (Manual) 6 L (24-44) % Monocytes (Manual) 8 (0.0-12.0) % Eosinophils (Manual) 3 (0.00-3.0) % Platelet Estimate DECREASED (NORMAL) RBC Morphology NORMAL Sodium 140 (137-145) mmol/L Potassium 4.7 (3.5-5.1) mmol/L Chloride 97 L (98-107) mmol/L Carbon Dioxide 35 H (22-30) mmol/L Anion Gap 13.2 (5-15) MEQ/L BUN 50 H (9-20) mg/dL Creatinine 1.63 H (0.66-1.25) mg/dL Estimated GFR 43.6 ML/MIN Glucose 115 H (74-106) mg/dL Calcium 9.0 (8.4-10.2) mg/dL Total Bilirubin 0.70 (0.2-1.3) mg/dL AST 53 (17-59) U/L ALT 75 H (0-50) U/L Alkaline Phosphatase 92 (38-126) U/L Serum Total Protein 7.4 (6.3-8.2) g/dL Albumin 4.2 (3.5-5.0) g/dL Microbiology 05/17/21 14:30 Gram Stain - Final Sputum - Expectorant Sputum Culture - Final Staphylococcus Aureus 05/17/21 17:24 Urine Culture - Final Urine, Void <10K NORMAL SKIN MOY PROBABLE SKIN CONTAMINANT 05/17/21 13:46 Blood Culture - Preliminary Blood NO GROWTH TO DATE 05/17/21 13:40 Blood Culture - Preliminary Blood NO GROWTH TO DATE - Radiology Impressions Radiology Exams & Impressions: Radiology Procedures Category Date Time Status CHEST 1 VIEW (PORTABLE) Urgent Exams 05/19/21 12:56 Completed - Other Procedures and Tests Respiratory Therapy 05/20/21 19:00 Incentive Spirometry Q6H
[2021-05-21] MEDS: ROCEPHIN 1 Gm-D5w 50 ml Bag** 1 G/50 ML IVPB IV SCH (11:13)
[2021-05-21] MEDS: Colace 100 MG PO SCH ×2 (11:18→21:17)
[2021-05-21] MEDS: THERAGRAN MULTIVITAMIN PO SCH (11:18)
[2021-05-21] MEDS: DELTASONE 10 MG PO SCH (11:19)
[2021-05-21] MEDS: Lasix 40 MG PO SCH (11:19)
[2021-05-21] MEDS: Cordarone 200 MG PO SCH (11:19)
[2021-05-21] MEDS: Toprol-Xl 25MG Tablets PO SCH (11:20)
[2021-05-21] MEDS: Pepcid 20 MG PO SCH ×2 (11:23→21:17)
[2021-05-21] MEDS: Klor Con 10 MEQ PO SCH ×2 (11:24→21:18)
[2021-05-21] MEDS: ENTRESTO 49 MG-51 MG TABLET PO SCH ×2 (11:25→21:18)
[2021-05-21] MEDS: Zithromax 500 MG/ 250 ML NaCl Premix 500 MG/250 ML IVPB IV SCH (11:27)
[2021-05-21 13:34] LABS: Hemoglobin 10.4 gm/dl (12.5-18.0); Mean Cell Volume 94.6 fl (78-100); Mean Corpuscular Hemoglobin 28.1 pg (26-32); Mean Corpuscular Hgb Concent. 29.7 g/dl (32-36); Platelet Count 149 K/mm3 (150-450); White Blood Count 11.9 K/mm3 (4.0-10.5)
--- NOTE | 2021-05-21 13:54 | XRAY ---
Indication: Short of breath and cough. Comparison: May 19, 2021. PA/lateral chest demonstrates worsening moderate right effusion now occupying 50% hemithorax. Remaining chest unchanged again with right mid to lower lung infiltrate/atelectasis and cardiomegaly with cardiac valve replacement surgery.
[2021-05-21 14:33] LABS: ANION GAP 11.9 MEQ/L (5-15); BILIRUBIN,TOTAL 0.7 mg/dL (0.2-1.3); Calcium 8.7 mg/dL (8.4-10.2); Creatinine 1 1.54 mg/dL (0.66-1.25); EST GLOMERULAR FILTRATION RATE 46.5 ML/MIN; Potassium 4.2 mmol/L (3.5-5.1)
[2021-05-21 15:42] LABS: INR 3.13 (0.8-3.0); PROTIME 36.9 SECONDS (9.4-12.5)
[2021-05-21] MEDS ORDERED: Vitamin K 10 MG/ML PO ONE (17:00)
[2021-05-21] MEDS ORDERED: PHARMACY DOSING REQUEST MC ONE (17:06)
--- NOTE | 2021-05-21 17:12 | PCM.CONS ---
History of Present Illness - Reason for Consult Chief Complaint: CHF, PNEUMONIA Date of Consultation Date: 05/21/21 Reason for Consult: pleural effusion. Requesting Provider: SKYLAR BLEVINS Consulting Provider: ESTHER BOB MD History of Present Illness: hx per chart review and d/w pt, RN, zenajacinto 81yo male pmh listed, copd, chronic pulmonary disease, home O2 3L at baseline, mechanical valve on coumadin. presents with increasing shortness of breath. admit, tx for CHF, PNA. CXR with increasing right pleural effusion. pt states he was starting to feel better but worse SOB since around the time of his CXR today. ROS otherwise negative. "CHIEF COMPLAINT: Shortness of breath. HISTORY OF PRESENT ILLNESS: The patient is a 81 year-old white male patient who reports that he began having a fever of 101F. He had some trouble with food just tasting poorly. He does have a history of lung problems. He is only able to speak five to six word sentences without having to take a breath. The patient was somewhat tachypneic and wheezes were noted in the emergency room. The patients primary care doctor is Dr. Blevins and he was the one who saw him in the emergency room. The patient was tested for COVID and having been negative the patient was admitted to our hospital facility for pneumonia on IV antibiotics. PAST MEDICAL/SURGICAL HISTORY: Otherwise significant for chronic obstructive pulmonary disease, hyperlipidemia, iron deficiency. He has a history otherwise of coronary artery disease and gastroesophageal reflux disease. HOME MEDICATIONS: Currently Pravastatin 20 mg, Symbicort 160-4.5 two puffs b.i.d., iron 325 mg once a day, Lasix 40 mg twice daily, metoprolol succinate 25 mg daily, potassium 20 mEq twice a day, Entresto 24-26 one tablet b.i.d., DuoNeb treatments, amiodarone 200 mg daily, docusate sodium 100 mg b.i.d., famotidine 20 mg at night, magnesium 64 mg at night, Coumadin 5 mg at night as well. ALLERGIES: NKDA. " - Review of Systems All Other Systems: Reviewed and Negative (per chart review and d/w pt 12 system ROS negative otherwise.) Medications & Allergies Home Medications: Home Medication List Pravastatin Sodium [Pravachol] 20 mg PO HS 02/15/16 [History Confirmed 05/17/21] Budesonide/Formoterol Fumarate [Symbicort 160-4.5 Mcg Inhaler] 2 puffs IH BID 07/16/20 [History Confirmed 05/17/21] Ferrous Sulfate 325 mg PO HS 11/08/20 [History Confirmed 05/17/21] Furosemide 40 mg [Lasix 40 MG] 40 mg PO BID 11/08/20 [History Confirmed 05/17/21] Metoprolol Succinate 50 mg [Toprol Xl 50 MG] 25 mg PO DAILY 11/08/20 [History Confirmed 05/17/21] Potassium Chloride [K-Dur] 20 meq PO BID 11/08/20 [History Confirmed 05/17/21] Sacubitril/Valsartan [Entresto 24 mg-26 mg Tablet] 1 tab PO BID 11/08/20 [History Confirmed 05/17/21] Albuterol/Ipratropium 3ml Neb* [DUONEB 0.5-3 MG/3 ml Neb] 1 neb IH Q4HPRN PRN 01/06/21 [History Confirmed 05/17/21] Amiodarone HCl [Pacerone] 200 mg PO DAILY 01/06/21 [History Confirmed 05/17/21] Docusate Sodium 100 mg [Colace 100 MG] 100 mg PO BID 01/06/21 [History Confirmed 05/17/21] Famotidine 20 mg [Pepcid 20 MG] 20 mg PO BID 01/06/21 [History Confirmed 05/17/21] Magnesium Chloride 64 mg [Slow-Mag 64 MG] 64 mg PO HS 01/06/21 [History Confirmed 05/17/21] Multivitamin [Daily Multivitamin] 1 tab PO DAILY 05/17/21 [History Confirmed 05/17/21] Prednisone 10 mg [Deltasone 10 mg] 10 mg PO DAILY 05/17/21 [History Confirmed 05/17/21] Warfarin Sodium 5 mg [Coumadin 5 MG] 4 mg PO HS 05/17/21 [History Confirmed 05/17/21] Allergies/Adverse Reactions: Allergies Allergy/AdvReac Type Severity Reaction Status Date / Time No Known Drug Allergies Allergy Verified 01/10/21 10:55 - Past Medical History Past Medical History: Yes Neurological History: No Pertinent History ENT History: Cataracts Cardiac History: Arrhythmia, High Cholesterol, Hypertension, Other Respiratory History: CHF, COPD Endocrine Medical History: No Pertinent History Musculoskelatal History: No Pertinent History GI Medical History: No Pertinent History History: No Pertinent History Pyscho-Social History: No Pertinent History Male Reproductive Disorders: No Pertinent History Comment: 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 - Past Surgical History Past Surgical History: Yes Neuro Surgical History: No Pertinent History Cardiac History: Valve Replacement Respiratory Surgery: No Pertinent History GI Surgical History: No Pertinent History Genitourinary Surgical Hx: No Pertinent History Musculskeletal Surgical Hx: No Pertinent History Male Surgical History: No Pertinent History - Social History Smoking Status: Never smoker Exposure to second hand smoke: No Alcohol: None Drug Use: none Significant Family History: no pertinent family hx - Physical Exam Vital Signs: Vital Signs - 24 hr Temp Pulse Resp BP BP Pulse Ox 05/21/21 13:13 76 22 94 L 05/21/21 11:29 76 24 115/56 96 05/21/21 08:00 98.4 F 81 20 115/56 93 L 05/21/21 07:11 67 19 92 L 05/21/21 03:54 97.9 F 63 21 105/55 96 05/21/21 02:11 58 L 20 97 05/21/21 00:00 97.8 F 80 20 101/54 98 05/20/21 20:00 98.2 F 72 19 100/54 96 05/20/21 19:25 72 20 95 General Appearance: no apparent distress Neurologic Exam: alert, oriented x 3, cooperative, normal mood/affect Eye Exam: eyes nml inspection, No scleral icterus Neck Exam: normal inspection Respiratory Exam: diminished breath sounds, prolonged expirations Cardiovascular Exam: regular rate/rhythm, normal heart sounds Gastrointestinal/Abdomen Exam: soft, No tenderness, No distention, No mass Back Exam: normal inspection Extremity Exam: swelling Skin Exam: normal color, warm Results - Labs Lab/Micro Results: Lab Results-Last 24 Hours 05/21/21 05/21/21 05/21/21 Range/Units 13:25 13:25 15:30 WBC 11.9 H (4.0-10.5) K/mm3 RBC 3.70 L (4.1-5.6) M/mm3 Hgb 10.4 L (12.5-18.0) gm/dl Hct 35.0 L (42-50) % MCV 94.6 (78-100) fl MCH 28.1 (26-32) pg MCHC 29.7 L (32-36) g/dl RDW 17.0 H (11.5-14.0) % Plt Count 149 L (150-450) K/mm3 MPV 11.0 (7.5-11.0) fl PT 36.9 H (9.4-12.5) SECONDS INR 3.13 H (0.8-3.0) Sodium 139 (137-145) mmol/L Potassium 4.2 (3.5-5.1) mmol/L Chloride 96 L (98-107) mmol/L Carbon Dioxide 35 H (22-30) mmol/L Anion Gap 11.9 (5-15) MEQ/L BUN 47 H (9-20) mg/dL Creatinine 1.54 H (0.66-1.25) mg/dL Estimated GFR 46.5 ML/MIN Glucose 117 H (74-106) mg/dL Calcium 8.7 (8.4-10.2) mg/dL Total Bilirubin 0.70 (0.2-1.3) mg/dL AST 50 (17-59) U/L ALT 75 H (0-50) U/L Alkaline Phosphatase 101 (38-126) U/L NT-Pro-B Natriuret Pep 3210 H (0-1800) pg/mL Serum Total Protein 7.0 (6.3-8.2) g/dL Albumin 4.0 (3.5-5.0) g/dL Microbiology 05/17/21 14:30 Gram Stain - Final Sputum - Expectorant Sputum Culture - Final Staphylococcus Aureus 05/17/21 17:24 Urine Culture - Final Urine, Void <10K NORMAL SKIN MOY PROBABLE SKIN CONTAMINANT 05/17/21 13:46 Blood Culture - Preliminary Blood NO GROWTH TO DATE 05/17/21 13:40 Blood Culture - Preliminary Blood NO GROWTH TO DATE - Radiology Impressions Radiology Exams & Impressions: Radiology Procedures Category Date Time Status CHEST 2 VIEWS (PA AND LAT) Urgent Exams 05/21/21 13:45 Completed THORACENTESIS [US] Routine Exams 05/22/21 Ordered - Other Procedures and Tests Respiratory Therapy 05/20/21 19:00 Incentive Spirometry Q6H Assessment/Plan (1) Right lower lobe pneumonia Current Visit: Yes Status: Acute Qualifiers: Pneumonia type: due to Pseudomonas Qualified Code(s): J15.1 - Pneumonia due to Pseudomonas Assessment & Plan: 81yo male seems to have right parapneumonic effusion. is on therapeutic lovenox. d/w radiology and primary. plan is for vit k 10mg po tongiht. repeat INR in am. if ok go for thoracentesis and fluid sampling tomorrow. start on therapeutic lovenox post procedure. depending on serial imaging and fluid studies may need a chest tube at some point. >35min spent Code(s): J18.9 - PNEUMONIA, UNSPECIFIED ORGANISM
[2021-05-21] MEDS: Lasix 40 MG/4 ML IV SCH (17:36)
--- NOTE | 2021-05-21 20:59 | PCM.NOTE ---
Date and Time: 05/21/212055 Subjective Assessment: very short of breath - Review of Systems Constitutional: No Fever, No Chills Eyes: No Symptoms Ears, Nose, & Throat: No Symptoms Respiratory: Cough, Orthopnea, Short Of Breath, Wheezing Cardiac: No Chest Pain, No Edema, No Syncope Abdominal/Gastrointestinal: No Abdominal Pain, No Nausea, No Vomiting, No Diarrhea Genitourinary Symptoms: No Dysuria Musculoskeletal: No Back Pain, No Neck Pain Skin: No Rash Neurological: No Dizziness, No Focal Weakness, No Sensory Changes Psychological: No Symptoms Endocrine: No Symptoms Hematologic/Lymphatic: No Symptoms Immunological/Allergic: No Symptoms Objective Exam General Appearance: moderate distress, alert Neurologic Exam: alert, oriented x 3, cooperative, No motor deficits Skin Exam: normal color, warm, dry Eye Exam: PERRL, EOMI, eyes nml inspection Ears, Nose, Throat Exam: normal ENT inspection, pharynx normal, moist mucous membranes Neck Exam: normal inspection, non-tender, supple, full range of motion Respiratory Exam: diminished breath sounds, accessory muscle use, crackles/rales, rhonchi, wheezing, No respiratory distress Cardiovascular Exam: regular rate/rhythm, normal heart sounds Gastrointestinal/Abdomen Exam: soft, No tenderness, No mass Extremity Exam: normal inspection, normal range of motion Back Exam: normal inspection, normal range of motion, No CVA tenderness, No vertebral tenderness Male Genitalia Exam: deferred Rectal Exam: deferred OBJECTIVE DATA Vital Signs: Vital Signs - 24 hr Temp Pulse Resp BP BP Pulse Ox 05/21/21 19:45 67 20 98 05/21/21 19:20 97.9 F 92 H 21 125/59 95 05/21/21 16:00 97.1 F 69 21 108/54 92 L 05/21/21 13:13 76 22 94 L 05/21/21 11:29 76 24 115/56 96 05/21/21 08:00 98.4 F 81 20 115/56 93 L 05/21/21 07:11 67 19 92 L 05/21/21 03:54 97.9 F 63 21 105/55 96 05/21/21 02:11 58 L 20 97 05/21/21 00:00 97.8 F 80 20 101/54 98 Pain Assessment - Last Documented Pain Intensity 5 Intake and Output: Intake & Output 08/23/05/20/21 05/21/21 05/22/21 11:59 11:59 11:59 11:59 Intake Total 1660 1882 1540 295 Output Total 2350 1575 2625 1250 Balance -690 172 -6278 -956 Weight 90.2 kg 93.6 kg 91.8 kg Lab Results: Lab Results-Last 24 Hours 05/21/21 05/21/21 05/21/21 Range/Units 13:25 13:25 15:30 WBC 11.9 H (4.0-10.5) K/mm3 RBC 3.70 L (4.1-5.6) M/mm3 Hgb 10.4 L (12.5-18.0) gm/dl Hct 35.0 L (42-50) % MCV 94.6 (78-100) fl MCH 28.1 (26-32) pg MCHC 29.7 L (32-36) g/dl RDW 17.0 H (11.5-14.0) % Plt Count 149 L (150-450) K/mm3 MPV 11.0 (7.5-11.0) fl PT 36.9 H (9.4-12.5) SECONDS INR 3.13 H (0.8-3.0) Sodium 139 (137-145) mmol/L Potassium 4.2 (3.5-5.1) mmol/L Chloride 96 L (98-107) mmol/L Carbon Dioxide 35 H (22-30) mmol/L Anion Gap 11.9 (5-15) MEQ/L BUN 47 H (9-20) mg/dL Creatinine 1.54 H (0.66-1.25) mg/dL Estimated GFR 46.5 ML/MIN Glucose 117 H (74-106) mg/dL Calcium 8.7 (8.4-10.2) mg/dL Total Bilirubin 0.70 (0.2-1.3) mg/dL AST 50 (17-59) U/L ALT 75 H (0-50) U/L Alkaline Phosphatase 101 (38-126) U/L NT-Pro-B Natriuret Pep 3210 H (0-1800) pg/mL Serum Total Protein 7.0 (6.3-8.2) g/dL Albumin 4.0 (3.5-5.0) g/dL Radiology Exams: Radiology Procedures Category Date Time Status CHEST 2 VIEWS (PA AND LAT) Urgent Exams 05/21/21 13:45 Completed THORACENTESIS [US] Routine Exams 05/22/21 Ordered Multi-Disciplinary Progress Notes: Multi-Disciplinary Progress Notes 05/21/21 15:09 Physical Therapy Note by Brittany Burden PT. CONT. TO REFUSE P.T. NETWORK CONSULTANT REPORTS HE HAS BEEN MOVING FAIRLY WELL IN ROOM SBA- MOD I. PT. REPORTS HE IS TOO SOB TO MOVE W/ PT WHEN HAVE ATEMPTED TO EVAL MULTIPLE TIMES. RECOMMEND AMB. W/ NSG AND WILL MONITOR AT THIS TIME. Initialized on 05/21/21 15:09 - END OF NOTE 05/21/21 11:58 Case Management Note by Anca Flores S/W PATIENT- NO CHANGE IN DC PLANS AT THIS TIME Initialized on 05/21/21 11:58 - END OF NOTE Assessment/Plan (1) Parapneumonic effusion Current Visit: Yes Status: Acute Assessment & Plan: Chief Complaint Diagnosis CHF, PNEUMONIA Allergies Allergy/AdvReac Type Severity Reaction Status Date / Time No Known Drug Allergies Allergy Verified 01/10/21 10:55 Vital Signs (Last 24 hours) Temp Pulse Resp BP BP Pulse Ox 05/21/21 19:45 67 20 98 05/21/21 19:20 97.9 F 92 H 21 125/59 95 05/21/21 16:00 97.1 F 69 21 108/54 92 L 05/21/21 13:13 76 22 94 L 05/21/21 11:29 76 24 115/56 96 05/21/21 08:00 98.4 F 81 20 115/56 93 L 05/21/21 07:11 67 19 92 L 05/21/21 03:54 97.9 F 63 21 105/55 96 05/21/21 02:11 58 L 20 97 05/21/21 00:00 97.8 F 80 20 101/54 98 Home Medications Medication Instructions Recorded Confirmed Last Taken Type Multivitamin [Daily Multivitamin] 1 tab PO DAILY 05/17/21 05/17/21 05/16/21 History Prednisone 10 mg [Deltasone 10 10 mg PO DAILY 05/17/21 05/17/21 05/16/21 History mg] Warfarin Sodium 5 mg [Coumadin 4 mg PO HS 05/17/21 05/17/21 05/16/21 History 5 MG] Current Medications Generic Name Dose Route Start Last Admin Trade Name Freq PRN Reason Stop Dose Admin Albuterol/Ipratropium 3 ml 05/17/21 19:00 05/21/21 19:44 Duoneb 0.5-3 Mg/3 Ml Neb IH 06/16/21 18:59 3 ml Q6HRT TREVOR Administration Albuterol/Ipratropium 3 ml 05/17/21 18:19 Duoneb 0.5-3 Mg/3 Ml Neb IH 06/16/21 18:18 Q4HPRN PRN SHORTNESS OF BREATH/WHEEZING Amiodarone HCl 200 mg 05/18/21 10:00 05/21/21 11:19 Cordarone 200 Mg PO 06/17/21 09:59 200 mg DAILY TREVOR Administration Docusate Sodium 100 mg 05/17/21 22:00 05/21/21 11:18 Colace 100 Mg PO 06/16/21 21:59 100 mg BID TREVOR Administration Famotidine 20 mg 05/17/21 22:00 05/21/21 11:23 Pepcid 20 Mg PO 06/16/21 21:59 20 mg BID TREVOR Administration Ferrous Sulfate 325 mg 05/17/21 22:00 05/20/21 21:56 Feosol 325 Mg PO 06/16/21 21:59 325 mg HS TREVOR Administration Furosemide 40 mg 05/21/21 17:00 05/21/21 17:36 Lasix 40 Mg/4 Ml IV 06/20/21 16:59 40 mg BID DIURETIC TREVOR Administration Ceftriaxone Sodium/Dextrose 1 g in 50 mls @ 100 mls/hr 05/18/21 10:00 05/21/21 11:13 Rocephin 1 Gm-D5w 50 Ml Bag IV 05/23/21 09:59 100 mls/hr Q24H10 TREVOR Administration Azithromycin 500 mg in 250 mls @ 125 mls/hr 05/18/21 10:00 05/21/21 11:27 Zithromax 500 Mg/ 250 Ml Nacl Premix IV 06/17/21 09:59 125 mls/hr DAILY TREVOR Administration Magnesium Oxide 400 mg 05/18/21 22:00 05/20/21 21:56 Mag-Ox 400 PO 06/17/21 21:59 400 mg HS TREVOR Administration Metoprolol Succinate 25 mg 05/18/21 10:00 05/21/21 11:20 Toprol-Xl 25mg Tablets PO 06/17/21 09:59 25 mg DAILY TREVOR Administration Multivitamins Therapeutic 1 tab 05/18/21 10:00 05/21/21 11:18 Theragran Multivitamin PO 06/17/21 09:59 1 tab DAILY TREVOR Administration Patient Own Medication 2 each 05/17/21 19:00 05/21/21 19:44 Patient Own Medication IH 06/16/21 18:59 2 each BIDRT TREVOR Administration Potassium Chloride 20 meq 05/17/21 22:00 05/21/21 11:24 Klor Con 10 Meq PO 06/16/21 21:59 20 meq BID TREVOR Administration Prednisone 10 mg 05/18/21 10:00 05/21/21 11:19 Deltasone 10 Mg PO 06/17/21 09:59 10 mg DAILY TREVOR Administration Sacubitril/Valsartan 0.5 tablet 05/18/21 10:00 05/21/21 11:25 Entresto 49 Mg-51 Mg Tablet PO 06/17/21 09:59 0.5 tablet BID TREVOR Administration Simvastatin 20 mg 05/17/21 22:00 05/20/21 21:56 Zocor 20mg PO 06/16/21 21:59 20 mg HS TREVOR Administration Discontinued Medications Generic Name Dose Route Start Last Admin Trade Name Freq PRN Reason Stop Dose Admin Albuterol/Ipratropium 3 ml 05/17/21 13:15 05/17/21 13:48 Duoneb 0.5-3 Mg/3 Ml Neb IH 05/17/21 13:16 3 ml STAT ONE Administration Albuterol/Ipratropium Confirm 05/17/21 13:54 Duoneb 0.5-3 Mg/3 Ml Neb Administered 05/17/21 13:55 Dose 3 ml IH .STK-MED ONE Budesonide 0.5 mg 05/17/21 22:00 Pulmicort 0.5 Mg/2 Ml Respules IH 06/16/21 21:59 BID TREVOR Famotidine 20 mg 05/18/21 10:00 Pepcid 20 Mg PO 06/17/21 09:59 BID TREVOR Furosemide 40 mg 05/18/21 10:00 05/21/21 11:19 Lasix 40 Mg PO 06/17/21 09:59 40 mg BID DIURETIC TREVOR Administration Sodium Chloride 1,000 mls @ 50 mls/hr 05/17/21 13:15 05/17/21 13:21 Sodium Chloride 0.9% 1000 Ml IV 06/16/21 13:14 50 mls/hr .Q20H TREVOR Administration Ceftriaxone Sodium/Dextrose 1 g in 50 mls @ 100 mls/hr 05/17/21 14:27 05/17/21 15:09 Rocephin 1 Gm-D5w 50 Ml Bag IV 05/17/21 14:56 Infused STAT STA Infusion Azithromycin 500 mg in 250 mls @ 250 mls/hr 05/17/21 14:27 05/17/21 16:31 Zithromax 500 Mg/ 250 Ml Nacl Premix IV 05/17/21 15:26 Infused STAT STA Infusion Ceftriaxone Sodium/Dextrose Confirm 05/17/21 14:33 Rocephin 1 Gm-D5w 50 Ml Bag Administered 05/17/21 14:34 Dose 1 g in 50 mls @ ud IV .STK-MED ONE Azithromycin Confirm 05/17/21 15:13 Zithromax 500 Mg/ 250 Ml Nacl Premix Administered 05/17/21 15:14 Dose 500 mg in 250 mls @ ud IV .STK-MED ONE Sodium Chloride Confirm 05/17/21 13:18 Sodium Chloride 0.9% 1000 Ml Administered 05/17/21 13:19 Dose 1,000 mls @ ud .ROUTE .STK-MED ONE Metoprolol Succinate 25 mg 05/18/21 10:00 Toprol Xl 50 Mg PO 06/17/21 09:59 DAILY TREVOR Non-Formulary Medication 20 meq 05/18/21 10:00 Potassium Chloride [K-Dur] PO 06/17/21 09:59 BID TREVOR Non-Formulary Medication 20 mg 05/18/21 22:00 Pravastatin Sodium [Pravachol] PO 06/17/21 21:59 HS [facility] Non-Formulary Medication 1 each 05/21/21 17:06 Pharmacy Dosing Request 05/21/21 17:07 STAT ONE Phytonadione 10 mg 05/21/21 17:00 05/21/21 17:35 Vitamin K 10 Mg/Ml PO 05/21/21 17:01 10 mg STAT ONE Administration Sacubitril/Valsartan 0.5 tablet 05/18/21 02:45 05/18/21 20:44 Entresto 49 Mg-51 Mg Tablet PO 05/18/21 02:46 Not Given NOW ONE Sterile Water Confirm 05/20/21 16:22 Sterile H2o 10 Ml Administered 05/20/21 16:23 Dose 10 ml IJ .STK-MED ONE Warfarin Sodium 4 mg 05/18/21 18:00 05/20/21 16:15 Coumadin 1 Mg PO 06/17/21 17:59 4 mg DAILY@1800 [facility] Administration Intake & Output (Last 24 hours) 05/19/21 05/20/21 05/21/21 05/22/21 11:59 11:59 11:59 11:59 Intake Total 1660 1882 1540 295 Output Total 2350 1575 2625 1250 Balance -690 687 -1807 -197 Weight 90.2 kg 93.6 kg 91.8 kg Microbiology Results (Last 24 hours) 05/21/21 Unknown Thoracic Fluid Aerobic Culture - Pending 05/21/21 Unknown Thoracic Fluid Aerobic Culture Result 1 - Final Not Reportable 05/21/21 Unknown Thoracic Fluid Aerobic Culture Result 2 - Final Not Reportable 05/21/21 Unknown Thoracic Fluid Aerobic Culture Result 3 - Final Not Reportable 05/21/21 Unknown Thoracic Fluid Aerobic Culture Result 4 - Final Not Reportable 05/21/21 Unknown Thoracic Fluid Aerobic Bacterial Sensitivity - Final Not Reportable 05/21/21 Unknown Thoracic Fluid Aerobic Organism ID Result 1 - Pending 05/21/21 Unknown Thoracic Fluid Anaerobic Culture - Pending 05/21/21 Unknown Thoracic Fluid Anaerobic Culture - Pending 05/21/21 Unknown Thoracic Fluid Anaerobic Culture Result 1 - Pending 05/21/21 Unknown Thoracic Fluid Anaerobic Culture Result 3 - Pending 05/21/21 Unknown Thoracic Fluid Anaerobic Culture Result 4 - Pending 05/21/21 Unknown Thoracic Fluid Anaerobic Bacterial Sensitivity - Pending 05/17/21 14:30 Sputum - Expectorant Gram Stain - Final 05/17/21 14:30 Sputum - Expectorant Sputum Culture - Final Staphylococcus Aureus Laboratory Results (Last 24 hours) 05/21/21 05/21/21 05/21/21 15:30 13:25 13:25 WBC 11.9 H RBC 3.70 L Hgb 10.4 L Hct 35.0 L MCV 94.6 MCH 28.1 MCHC 29.7 L RDW 17.0 H Plt Count 149 L MPV 11.0 PT 36.9 H INR 3.13 H Sodium 139 Potassium 4.2 Chloride 96 L Carbon Dioxide 35 H Anion Gap 11.9 BUN 47 H Creatinine 1.54 H Estimated GFR 46.5 Glucose 117 H Calcium 8.7 Total Bilirubin 0.70 AST 50 ALT 75 H Alkaline Phosphatase 101 NT-Pro-B Natriuret Pep 3210 H Serum Total Protein 7.0 Albumin 4.0 Orders (Last 24 hours) Category Date Time Status Consult Surgery ROUTINE Cons 05/21/21 14:10 Completed NPO Diet 05/22/21 00:01 Active CHEST 2 VIEWS (PA AND LAT) Urgent Exams 05/21/21 13:45 Completed THORACENTESIS [US] Routine Exams 05/22/21 Ordered ALBUMIN Routine Lab 05/22/21 06:00 Ordered Aerobic Culture [MR] Routine Lab 05/21/21 Ordered Albumin, Body Fluid Routine Lab 05/22/21 00:01 Ordered Anaerobic Culture [MR] Routine Lab 05/21/21 Ordered BNP [NT PRO BNP] Routine Lab 05/21/21 13:25 Completed CBC Routine Lab 05/21/21 13:25 Completed CMP Routine Lab 05/21/21 13:25 Completed LD, Body Fluid Routine Lab 05/22/21 00:01 Ordered PROTIME WITH INR Routine Lab 05/21/21 15:30 Completed PT INR [PROTIME WITH INR] AM.LAB Lab 05/22/21 04:00 Ordered Pleural Fluid Cytology Routine Lab 05/22/21 00:01 Ordered pH,Body Fluid Routine Lab 05/22/21 00:01 Ordered Furosemide 40 mg/4 ml [Lasix 40 MG/4 ML] Med 05/21/21 17:00 Active 40 mg IV BID DIURETIC Pharmacy Dosing Request Med 05/21/21 17:06 Discontinued 1 each STAT ONE Phytonadione 10 mg [Vitamin K 10 MG/ML] Med 05/21/21 17:00 Discontinued 10 mg PO STAT ONE Patient Care Notes (Last 24 hours) 05/21/21 15:09 Physical Therapy Note by Brittany Burden PT. CONT. TO REFUSE P.T. NETWORK CONSULTANT REPORTS HE HAS BEEN MOVING FAIRLY WELL IN ROOM SBA- MOD I. PT. REPORTS HE IS TOO SOB TO MOVE W/ PT WHEN HAVE ATEMPTED TO EVAL MULTIPLE TIMES. RECOMMEND AMB. W/ NSG AND WILL MONITOR AT THIS TIME. Initialized on 05/21/21 15:09 - END OF NOTE 05/21/21 14:51 Nursing Note by Yesika Roy is here rounding on patient. Initialized on 05/21/21 14:51 - END OF NOTE 05/21/21 14:39 Nursing Note by Peri Ruano 1022-Spoke with Dr Castro regarding chest xray results. Advised to consult surgery for right side chest tube placement. Dr Diane in surgery department and notified. Initialized on 05/21/21 14:39 - END OF NOTE 05/21/21 11:58 Case Management Note by Anca Flores S/W PATIENT- NO CHANGE IN DC PLANS AT THIS TIME Initialized on 05/21/21 11:58 - END OF NOTE Code(s): J18.9 - PNEUMONIA, UNSPECIFIED ORGANISM; J91.8 - PLEURAL EFFUSION IN OTHER CONDITIONS CLASSIFIED ELSEWHERE (2) Right lower lobe pneumonia Current Visit: Yes Status: Acute Qualifiers: Pneumonia type: due to Pseudomonas Qualified Code(s): J15.1 - Pneumonia due to Pseudomonas Assessment & Plan: xray showed right hemithorax, 50 %, more likely parapneumonic effusion, will get surgery consult Code(s): J18.9 - PNEUMONIA, UNSPECIFIED ORGANISM (3) Atrial fibrillation Current Visit: Yes Status: Chronic Qualifiers: Atrial fibrillation type: longstanding persistent Qualified Code(s): I48.11 - Longstanding persistent atrial fibrillation Code(s): I48.91 - UNSPECIFIED ATRIAL FIBRILLATION (4) CHF (congestive heart failure) Current Visit: Yes Status: Chronic Qualifiers: Heart failure type: combined systolic and diastolic Heart failure chronicity: acute on chronic Qualified Code(s): I50.43 - Acute on chronic combined systolic (congestive) and diastolic (congestive) heart failure Code(s): I50.9 - HEART FAILURE, UNSPECIFIED (5) COPD (chronic obstructive pulmonary disease) Current Visit: No Status: Chronic Qualifiers: COPD type: COPD with acute exacerbation Qualified Code(s): J44.1 - Chronic obstructive pulmonary disease with (acute) exacerbation
[2021-05-21] MEDS: MAG-OX 400 PO SCH (21:17)
[2021-05-21] MEDS: ZOCOR 20MG PO SCH (21:17)
[2021-05-21] MEDS: FEOSOL 325 MG PO SCH (21:17)
[2021-05-22] MEDS: DUONEB 0.5-3 MG/3 ml Neb IH SCH ×4 (01:23→16:51)
[2021-05-22 05:52] LABS: INR 1.81 (0.8-3.0); PROTIME 21.3 SECONDS (9.4-12.5)
[2021-05-22] MEDS: PATIENT OWN MEDICATION IH SCH (06:35)
[2021-05-22] MEDS: ENTRESTO 49 MG-51 MG TABLET PO SCH ×2 (10:34→20:43)
[2021-05-22] MEDS: THERAGRAN MULTIVITAMIN PO SCH (10:34)
[2021-05-22] MEDS: Toprol-Xl 25MG Tablets PO SCH (10:34)
[2021-05-22] MEDS: Colace 100 MG PO SCH ×2 (10:34→20:44)
[2021-05-22] MEDS: Klor Con 10 MEQ PO SCH ×2 (10:34→20:44)
[2021-05-22] MEDS: Cordarone 200 MG PO SCH (10:35)
[2021-05-22] MEDS: Lasix 40 MG/4 ML IV SCH ×2 (10:35→17:39)
[2021-05-22] MEDS: Pepcid 20 MG PO SCH ×2 (10:35→20:44)
[2021-05-22] MEDS: DELTASONE 10 MG PO SCH (10:35)
[2021-05-22] MEDS: ROCEPHIN 1 Gm-D5w 50 ml Bag** 1 G/50 ML IVPB IV SCH (10:41)
[2021-05-22] MEDS: Zithromax 500 MG/ 250 ML NaCl Premix 500 MG/250 ML IVPB IV SCH (10:42)
--- NOTE | 2021-05-22 12:06 | XRAY ---
Indication: Status post right thoracentesis. Comparison: One day earlier. Portable chest demonstrates right effusion improvement with small residual consistent with recent thoracentesis. No pneumothorax. Continued right base infiltrate/atelectasis and cardiomegaly.
--- NOTE | 2021-05-22 13:34 | XRAY ---
Indication: Right pleural effusion. Informed consent obtained. Patient placed upright on his bed. Right lower back sonogram performed for localization. The lower back was prepped and draped in sterile fashion. 1% lidocaine plain was used for local anesthesia. Tiny skin incision made. 5 [employer] paracentesis needle/catheter was then percutaneously inserted. Once fluid was aspirating, the outer catheter was then advanced with the inner needle removed. Catheter was connected to a Vacutainer. Approximately 1.2 L of clear brownish colored transudative fluid aspirated. Separate 50 cc collected in a syringe and sent to laboratory. Repeat sonogram demonstrates marked improvement with small residual. Catheter removed. Hemostasis achieved using digital pressure over the puncture site. Band-Aid applied over the puncture site. Impression: Technically successful ultrasound guided right chest thoracentesis for diagnostic and therapeutic purpose. No immediate complications or blood loss.
[2021-05-22] MEDS: ZOCOR 20MG PO SCH (20:44)
[2021-05-22] MEDS: ENOXAPARIN SODIUM SQ SCH (20:44)
[2021-05-22] MEDS: FEOSOL 325 MG PO SCH (20:44)
[2021-05-22] MEDS: MAG-OX 400 PO SCH (20:44)
[2021-05-23] MEDS: DUONEB 0.5-3 MG/3 ml Neb IH SCH ×4 (00:39→18:43)
[2021-05-23 08:28] LABS: Hematocrit 33.9 % (42-50); Hemoglobin 10.1 gm/dl (12.5-18.0); Mean Corpuscular Hemoglobin 28.3 pg (26-32); Mean Corpuscular Hgb Concent. 29.8 g/dl (32-36); Mean Platelet Volume 10.1 fl (7.5-11.0); Red Blood Count 3.57 M/mm3 (4.1-5.6); Red Cell Distribution Width 16.7 % (11.5-14.0); White Blood Count 12.3 K/mm3 (4.0-10.5)
[2021-05-23 08:49] LABS: BAND 2 % (0.0-2.0); Basophil 1 % (0.0-1.0); Eosinophil 1 % (0.00-3.0); Lymphocytes 12 % (24-44); Metamyelocyte 2 %; Monocyte 10 % (0.0-12.0); Neutrophils 72 % (36.-66.); Platelet Estimate NORMAL (NORMAL); Total Cells Counted 100
[2021-05-23 08:51] LABS: Corrected WBC 10.2 K/mm3; Nucleated Red Blood Cell 21 %
[2021-05-23 08:52] LABS: Hypochromia 1+; Poikilocytosis 1+
[2021-05-23 08:53] LABS: Absolute Neutrophil Ct (ANC) 9.1 (1.4-6.9)
[2021-05-23 08:55] LABS: Platelet Count 134 K/mm3 (150-450)
[2021-05-23] MEDS: Colace 100 MG PO SCH ×2 (09:06→21:15)
[2021-05-23] MEDS: DELTASONE 10 MG PO SCH (09:07)
[2021-05-23] MEDS: THERAGRAN MULTIVITAMIN PO SCH (09:07)
[2021-05-23] MEDS: ENOXAPARIN SODIUM SQ SCH ×2 (09:07→21:16)
[2021-05-23] MEDS: Cordarone 200 MG PO SCH (09:07)
[2021-05-23] MEDS: Klor Con 10 MEQ PO SCH ×2 (09:07→21:17)
[2021-05-23] MEDS: Lasix 40 MG/4 ML IV SCH ×2 (09:07→17:03)
[2021-05-23] MEDS: Toprol-Xl 25MG Tablets PO SCH (09:07)
[2021-05-23] MEDS: ROCEPHIN 1 Gm-D5w 50 ml Bag** 1 G/50 ML IVPB IV SCH (09:07)
[2021-05-23] MEDS: Pepcid 20 MG PO SCH ×2 (09:07→21:17)
[2021-05-23 09:33] LABS: ALBUMIN 3.7 g/dL (3.5-5.0); BILIRUBIN,TOTAL 0.9 mg/dL (0.2-1.3); Calcium 8.7 mg/dL (8.4-10.2); Creatinine 1 1.61 mg/dL (0.66-1.25); EST GLOMERULAR FILTRATION RATE 44.2 ML/MIN; Potassium 4.3 mmol/L (3.5-5.1); Total Protein 6.8 g/dL (6.3-8.2)
[2021-05-23 09:42] LABS: ANION GAP 13.3 MEQ/L (5-15)
[2021-05-23] MEDS: Zithromax 500 MG/ 250 ML NaCl Premix 500 MG/250 ML IVPB IV SCH (09:46)
[2021-05-23] MEDS: ENTRESTO 49 MG-51 MG TABLET PO SCH ×2 (09:51→21:16)
[2021-05-23 12:24] LABS: Albumin, Body Fluid 1.7 g/dL (Not Estab.); LD, Body Fluid 175 IU/L (.)
--- NOTE | 2021-05-23 12:58 | PCM.NOTE ---
Date and Time: 05/23/21 1256 Subjective Assessment: feeling better today - Review of Systems Constitutional: No Fever, No Chills Eyes: No Symptoms Ears, Nose, & Throat: No Symptoms Respiratory: Cough, Orthopnea, Short Of Breath, Wheezing Cardiac: No Chest Pain, No Edema, No Syncope Abdominal/Gastrointestinal: No Abdominal Pain, No Nausea, No Vomiting, No Diarrhea Genitourinary Symptoms: No Dysuria Musculoskeletal: No Back Pain, No Neck Pain Skin: No Rash Neurological: No Dizziness, No Focal Weakness, No Sensory Changes Psychological: No Symptoms Endocrine: No Symptoms Hematologic/Lymphatic: No Symptoms Immunological/Allergic: No Symptoms Objective Exam General Appearance: no apparent distress, alert Neurologic Exam: alert, oriented x 3, cooperative, normal mood/affect, nml cerebellar function, sensation nml, No motor deficits Skin Exam: normal color, warm, dry Eye Exam: PERRL, EOMI, eyes nml inspection Ears, Nose, Throat Exam: normal ENT inspection, pharynx normal, moist mucous membranes Neck Exam: normal inspection, non-tender, supple, full range of motion Respiratory Exam: diminished breath sounds, crackles/rales, rhonchi, wheezing, No respiratory distress Cardiovascular Exam: regular rate/rhythm, normal heart sounds Gastrointestinal/Abdomen Exam: soft, No tenderness, No mass Extremity Exam: normal inspection, normal range of motion Back Exam: normal inspection, normal range of motion, No CVA tenderness, No vertebral tenderness Male Genitalia Exam: deferred Rectal Exam: deferred OBJECTIVE DATA Vital Signs: Vital Signs - 24 hr Temp Pulse Resp BP BP Pulse Ox 05/23/21 08:00 98.2 F 78 23 112/59 95 05/23/21 05:11 93 H 20 94 L 05/23/21 04:00 98.9 F 66 19 114/55 97 05/23/21 00:41 57 L 18 97 05/22/21 23:49 98.1 F 71 20 106/51 97 05/22/21 19:27 98.5 F 64 20 111/54 97 05/22/21 16:53 72 20 95 05/22/21 16:00 98.4 F 69 24 135/60 92 L Pain Assessment - Last Documented Pain Intensity 0 Intake and Output: Intake & Output 05/21/21 05/22/21 05/23/21 05/24/21 11:59 11:59 11:59 11:59 Intake Total 1540 1275 2180 Output Total 1541 8693 5850 Balance -2166 -412 -120 Weight 91.8 kg 90.9 kg 91.5 kg Lab Results: Lab Results-Last 24 Hours 05/22/21 05/23/21 05/23/21 Range/Units 11:30 08:20 08:20 WBC 12.3 H (4.0-10.5) K/mm3 Corrected WBC (auto) 10.2 K/mm3 RBC 3.57 L (4.1-5.6) M/mm3 Hgb 10.1 L (12.5-18.0) gm/dl Hct 33.9 L (42-50) % MCV 95.0 (78-100) fl MCH 28.3 (26-32) pg MCHC 29.8 L (32-36) g/dl RDW 16.7 H (11.5-14.0) % Plt Count 134 L (150-450) K/mm3 MPV 10.1 (7.5-11.0) fl Absolute Granulocytes 9.1 H (1.4-6.9) Segmented Neutrophils 72 H (36.-66.) % Band Neutrophils 2 (0.0-2.0) % Lymphocytes (Manual) 12 L (24-44) % Monocytes (Manual) 10 (0.0-12.0) % Eosinophils (Manual) 1 (0.00-3.0) % Basophils (Manual) 1 (0.0-1.0) % Metamyelocytes 2 % Nucleated RBCs 21 % Hypochromia 1+ Platelet Estimate NORMAL (NORMAL) RBC Morphology ABNORMAL Poikilocytosis 1+ Sodium 140 (137-145) mmol/L Potassium 4.3 (3.5-5.1) mmol/L Chloride 94 L (98-107) mmol/L Carbon Dioxide 37 H (22-30) mmol/L Anion Gap 13.3 (5-15) MEQ/L BUN 44 H (9-20) mg/dL Creatinine 1.61 H (0.66-1.25) mg/dL Estimated GFR 44.2 ML/MIN Glucose 94 (74-106) mg/dL Calcium 8.7 (8.4-10.2) mg/dL Total Bilirubin 0.90 (0.2-1.3) mg/dL AST 36 (17-59) U/L ALT 56 H (0-50) U/L Alkaline Phosphatase 97 (38-126) U/L Serum Total Protein 6.8 (6.3-8.2) g/dL Albumin 3.7 (3.5-5.0) g/dL Fluid pH Pending Fluid Albumin 1.7 (Not Estab.) g/dL Fluid LDH 175 (.) IU/L Fluid Cytology Diagnosis Pending Radiology Exams: Radiology Procedures Category Date Time Status CHEST 1 VIEW (PORTABLE) Stat Exams 05/22/21 11:19 Completed CHEST 2 VIEWS (PA AND LAT) Urgent Exams 05/21/21 13:45 Completed THORACENTESIS [US] Routine Exams 05/22/21 12:17 Completed Multi-Disciplinary Progress Notes: Multi-Disciplinary Progress Notes 05/23/21 09:57 Case Management Note by Anca Flores S/W PATIENT THIS AM- HE REPORTS HE IS FEELIG MUCH BETTER. HE DENIES ANY NEW NEEDS AT TIME OF DC. HE LIVES WITH HIS EX AND HAS [facility]. HE PLANS TO RETURN HOME TO HIS PRIOR LEVEL OF FUNCTIONING AT TIME OF DC. PATIENT REPORTS HIS AIR CONDITIONER AT HOME IS BROKE DOWN- THEY ARE WORKING ON GETTING IT FIXED TODAY Initialized on 05/23/21 09:57 - END OF NOTE Assessment/Plan (1) Parapneumonic effusion Current Visit: Yes Status: Acute Assessment & Plan: Chief Complaint Diagnosis CHF, PNEUMONIA Allergies Allergy/AdvReac Type Severity Reaction Status Date / Time No Known Drug Allergies Allergy Verified 01/10/21 10:55 Vital Signs (Last 24 hours) Temp Pulse Resp BP BP Pulse Ox 05/23/21 08:00 98.2 F 78 23 112/59 95 05/23/21 05:11 93 H 20 94 L 05/23/21 04:00 98.9 F 66 19 114/55 97 05/23/21 00:41 57 L 18 97 05/22/21 23:49 98.1 F 71 20 106/51 97 05/22/21 19:27 98.5 F 64 20 111/54 97 05/22/21 16:53 72 20 95 05/22/21 16:00 98.4 F 69 24 135/60 92 L Home Medications Medication Instructions Recorded Confirmed Last Taken Type Multivitamin [Daily Multivitamin] 1 tab PO DAILY 05/17/21 05/17/21 05/16/21 History Prednisone 10 mg [Deltasone 10 10 mg PO DAILY 05/17/21 05/17/21 05/16/21 History mg] Warfarin Sodium 5 mg [Coumadin 4 mg PO HS 05/17/21 05/17/21 05/16/21 History 5 MG] Current Medications Generic Name Dose Route Start Last Admin Trade Name Freq PRN Reason Stop Dose Admin Albuterol/Ipratropium 3 ml 05/17/21 19:00 05/23/21 05:09 Duoneb 0.5-3 Mg/3 Ml Neb IH 06/16/21 18:59 3 ml Q6HRT TREVOR Administration Albuterol/Ipratropium 3 ml 05/17/21 18:19 Duoneb 0.5-3 Mg/3 Ml Neb 06/16/21 18:18 Q4HPRN PRN SHORTNESS OF BREATH/WHEEZING Amiodarone HCl 200 mg 05/18/21 10:00 05/23/21 09:07 Cordarone 200 Mg PO 06/17/21 09:59 200 mg DAILY TREVOR Administration Docusate Sodium 100 mg 05/17/21 22:00 05/23/21 09:06 Colace 100 Mg PO 06/16/21 21:59 100 mg BID TREVOR Administration Enoxaparin Sodium 90 mg 05/22/21 22:00 05/23/21 09:07 Enoxaparin Sodium SQ 06/21/21 21:59 90 mg BID TREVOR Administration Famotidine 20 mg 05/17/21 22:00 05/23/21 09:07 Pepcid 20 Mg PO 06/16/21 21:59 20 mg BID TREVOR Administration Ferrous Sulfate 325 mg 05/17/21 22:00 05/22/21 20:44 Feosol 325 Mg PO 06/16/21 21:59 325 mg HS TREVOR Administration Furosemide 40 mg 05/21/21 17:00 05/23/21 09:07 Lasix 40 Mg/4 Ml IV 06/20/21 16:59 40 mg BID DIURETIC TREVOR Administration Levofloxacin 500 mg 05/24/21 10:00 Levofloxacin 250mg Tablet PO 06/23/21 09:59 DAILY TREVOR Magnesium Oxide 400 mg 05/18/21 22:00 05/22/21 20:44 Mag-Ox 400 PO 06/17/21 21:59 400 mg HS TREVOR Administration Metoprolol Succinate 25 mg 05/18/21 10:00 05/23/21 09:07 Toprol-Xl 25mg Tablets PO 06/17/21 09:59 25 mg DAILY TREVOR Administration Multivitamins Therapeutic 1 tab 05/18/21 10:00 05/23/21 09:07 Theragran Multivitamin PO 06/17/21 09:59 1 tab DAILY TREVOR Administration Potassium Chloride 20 meq 05/17/21 22:00 05/23/21 09:07 Klor Con 10 Meq PO 06/16/21 21:59 20 meq BID TREVOR Administration Prednisone 10 mg 05/18/21 10:00 05/23/21 09:07 Deltasone 10 Mg PO 06/17/21 09:59 10 mg DAILY TREVOR Administration Sacubitril/Valsartan 0.5 tablet 05/18/21 10:00 05/23/21 09:51 Entresto 49 Mg-51 Mg Tablet PO 06/17/21 09:59 0.5 tablet BID TREVOR Administration Simvastatin 20 mg 05/17/21 22:00 05/22/21 20:44 Zocor 20mg PO 06/16/21 21:59 20 mg HS TREVOR Administration Discontinued Medications Generic Name Dose Route Start Last Admin Trade Name Freq PRN Reason Stop Dose Admin Albuterol/Ipratropium 3 ml 05/17/21 13:15 05/17/21 13:48 Duoneb 0.5-3 Mg/3 Ml Neb IH 05/17/21 13:16 3 ml STAT ONE Administration Albuterol/Ipratropium Confirm 05/17/21 13:54 Duoneb 0.5-3 Mg/3 Ml Neb Administered 05/17/21 13:55 Dose 3 ml IH .STK-MED ONE Budesonide 0.5 mg 05/17/21 22:00 Pulmicort 0.5 Mg/2 Ml Respules IH 06/16/21 21:59 BID TREVOR Famotidine 20 mg 05/18/21 10:00 Pepcid 20 Mg PO 06/17/21 09:59 BID TREVOR Furosemide 40 mg 05/18/21 10:00 05/21/21 11:19 Lasix 40 Mg PO 06/17/21 09:59 40 mg BID DIURETIC TREVOR Administration Sodium Chloride 1,000 mls @ 50 mls/hr 05/17/21 13:15 05/17/21 13:21 Sodium Chloride 0.9% 1000 Ml IV 06/16/21 13:14 50 mls/hr .Q20H TREVOR Administration Ceftriaxone Sodium/Dextrose 1 g in 50 mls @ 100 mls/hr 05/17/21 14:27 15:09 Rocephin 1 Gm-D5w 50 Ml Bag IV 05/17/21 14:56 Infused STAT STA Infusion Azithromycin 500 mg in 250 mls @ 250 mls/hr 05/17/21 14:27 05/17/21 16:31 Zithromax 500 Mg/ 250 Ml Nacl Premix IV 05/17/21 15:26 Infused STAT STA Infusion Ceftriaxone Sodium/Dextrose Confirm 05/17/21 14:33 Rocephin 1 Gm-D5w 50 Ml Bag Administered 05/17/21 14:34 Dose 1 g in 50 mls @ ud IV .STK-MED ONE Azithromycin Confirm 05/17/21 15:13 Zithromax 500 Mg/ 250 Ml Nacl Premix Administered 05/17/21 15:14 Dose 500 mg in 250 mls @ ud IV .STK-MED ONE Sodium Chloride Confirm 05/17/21 13:18 Sodium Chloride 0.9% 1000 Ml Administered 05/17/21 13:19 Dose 1,000 mls @ ud .ROUTE .STK-MED ONE Ceftriaxone Sodium/Dextrose 1 g in 50 mls @ 100 mls/hr 05/18/21 10:00 05/23/21 09:07 Rocephin 1 Gm-D5w 50 Ml Bag IV 05/24/21 09:59 100 mls/hr Q24H10 TREVOR Administration Azithromycin 500 mg in 250 mls @ 125 mls/hr 05/18/21 10:00 05/23/21 09:46 Zithromax 500 Mg/ 250 Ml Nacl Premix IV 06/17/21 09:59 125 mls/hr DAILY TREVOR Administration Metoprolol Succinate 25 mg 05/18/21 10:00 Toprol Xl 50 Mg PO 06/17/21 09:59 DAILY [facility] Non-Formulary Medication 20 meq 05/18/21 10:00 Potassium Chloride [K-Dur] PO 06/17/21 09:59 BID [facility] Non-Formulary Medication 20 mg 05/18/21 22:00 Pravastatin Sodium [Pravachol] PO 06/17/21 21:59 HS [facility] Non-Formulary Medication 1 each 05/21/21 17:06 05/22/21 17:40 Pharmacy Dosing Request MC 05/21/21 17:07 1 each STAT ONE Administration Patient Own Medication 2 each 05/17/21 19:00 05/22/21 06:35 Patient Own Medication IH 06/16/21 18:59 2 each BIDRT [facility] Administration Phytonadione 10 mg 05/21/21 17:00 05/21/21 17:35 Vitamin K 10 Mg/Ml PO 05/21/21 17:01 10 mg STAT ONE Administration Sacubitril/Valsartan 0.5 tablet 05/18/21 02:45 05/18/21 20:44 Entresto 49 Mg-51 Mg Tablet PO 05/18/21 02:46 Not Given NOW ONE Sterile Water Confirm 05/20/21 16:22 Sterile H2o 10 Ml Administered 05/20/21 16:23 Dose 10 ml IJ .STK-MED ONE Warfarin Sodium 4 mg 05/18/21 18:00 05/20/21 16:15 Coumadin 1 Mg PO 06/17/21 17:59 4 mg DAILY@1800 [facility] Administration Intake & Output (Last 24 hours) 05/21/21 05/22/21 05/23/21 05/24/21 11:59 11:59 11:59 11:59 Intake Total 1540 1275 2180 Output Total 2625 2150 2300 Balance -1085 -875 -120 Weight 91.8 kg 90.9 kg 91.5 kg Microbiology Results (Last 24 hours) 05/22/21 11:30 Thoracic Fluid Aerobic Culture - Pending 05/22/21 11:30 Thoracic Fluid Aerobic Organism ID Result 1 - Final Not Reportable 05/22/21 11:30 Thoracic Fluid Anaerobic Culture - Pending 05/22/21 11:30 Thoracic Fluid Anaerobic Culture - Final Not Reportable 05/22/21 11:30 Thoracic Fluid Anaerobic Culture Result 1 - Final Not Reportable 05/22/21 11:30 Thoracic Fluid Anaerobic Culture Result 3 - Final Not Reportable 05/22/21 11:30 Thoracic Fluid Anaerobic Culture Result 4 - Final Not Reportable 05/22/21 11:30 Thoracic Fluid Anaerobic Bacterial Sensitivity - Final Not Reportable 05/22/21 10:45 Body Fluid - Not Known AFB Specimen Processing - Pending 05/22/21 10:45 Body Fluid - Not Known Acid Fast Bacilli Smear - Pending 05/22/21 10:45 Body Fluid - Not Known Acid Fast Bacilli Culture - Pending 05/22/21 10:45 Body Fluid - Not Known Acid Fast Bacilli (AFB) Probe - Pending 05/22/21 10:45 Body Fluid - Not Known M.tuberculosis Complex DNA Probe - Pending 05/22/21 10:45 Body Fluid - Not Known Mycobact. avium Complex DNA Probe - Pending 05/22/21 10:45 Body Fluid - Not Known Mycobacterium [place]ii DNA Probe - Pending 05/22/21 10:45 Body Fluid - Not Known Mycobacterium gordanae DNA Probe - Pending 05/22/21 10:45 Body Fluid - Not Known Mycobacterium DNA Probe - Pending 05/22/21 10:45 Body Fluid - Not Known Organism ID (Sequencing) - Pending 05/22/21 10:45 Body Fluid - Not Known Organism ID (Sequencing 2)([email or web address]) - Pending 05/22/21 10:45 Body Fluid - Not Known AFB Susceptibility Testing - Pending 05/22/21 10:45 Body Fluid - Not Known Mycobacterium Identification - Pending 05/22/21 10:45 Body Fluid - Not Known AFB Suscept Streptomycin 1 ug/mL - Pending 05/22/21 10:45 Body Fluid - Not Known AFB Suscept Isoniazid 0.1 ug/mL - Pending 05/22/21 10:45 Body Fluid - Not Known AFB Susceptibility Rifampin 1 ug/mL - Pending 05/22/21 10:45 Body Fluid - Not Known AFB Suscept Ethambutol 5 ug/mL - Pending 05/22/21 10:45 Body Fluid - Not Known AFB Suscept Pyrazinamide 100 ug/mL - Pending 05/22/21 10:45 Body Fluid - Not Known [place] Proportion Confirmation - Pending 05/22/21 10:45 Body Fluid - Not Known AFB Suscept Streptomycin 2 ug/mL - Pending 05/22/21 10:45 Body Fluid - Not Known AFB Suscept Streptomycin 10 ug/mL - Pending 05/22/21 10:45 Body Fluid - Not Known AFB Suscept Isoniazid 0.2 ug/mL - Pending 05/22/21 10:45 Body Fluid - Not Known AFB Suscept Isoniazid 1 ug/mL - Pending 05/22/21 10:45 Body Fluid - Not Known AFB Susceptibility Rifampin 1 ug/mL - Pending 05/22/21 10:45 Body Fluid - Not Known AFB Suscept Ethambutol 5 ug/mL - Pending 05/22/21 10:45 Body Fluid - Not Known M.avium-intracell & tuberculosis ID - Pending 05/22/21 10:45 Body Fluid - Not Known AFB Susceptibility Note - Pending 05/22/21 10:45 Body Fluid - Not Known AFB Susceptibility Amikacin - Pending 05/22/21 10:45 Body Fluid - Not Known AFB Susceptibility Clarithromycin - Pending 05/22/21 10:45 Body Fluid - Not Known AFB Susceptibility Linezolid - Pending 05/22/21 10:45 Body Fluid - Not Known AFB Susceptibility Moxifloxacin - Pending 05/22/21 10:45 Body Fluid - Not Known AFB Susceptibility Streptomycin - Pending 05/22/21 10:45 Body Fluid - Not Known Mycobacterium Identification - Pending 05/22/21 10:45 Body Fluid - Not Known AFB Susceptibility Amikacin - Pending 05/22/21 10:45 Body Fluid - Not Known AFB Susceptibility Ciprofloxacin - Pending 05/22/21 10:45 Body Fluid - Not Known AFB Susceptibility Clarithromycin - Pending 05/22/21 10:45 Body Fluid - Not Known AFB Susceptibility Doxycycline - Pending 05/22/21 10:45 Body Fluid - Not Known AFB Susceptibility Linezolid - Pending 05/22/21 10:45 Body Fluid - Not Known AFB Susceptibility Moxifloxacin - Pending 05/22/21 10:45 Body Fluid - Not Known AFB Susceptibility Rifampin - Pending 05/22/21 10:45 Body Fluid - Not Known AFB Susceptibility Rifabutin - Pending 05/22/21 10:45 Body Fluid - Not Known AFB Susceptibility Streptomycin - Pending 05/22/21 10:45 Body Fluid - Not Known AFB Susceptibility Trimethoprim/Sul - Pending 05/22/21 10:45 Body Fluid - Not Known Mycobacterium Identification - Pending 05/22/21 10:45 Body Fluid - Not Known AFB Susceptibility Note - Pending 05/22/21 10:45 Body Fluid - Not Known AFB Susceptibility Amikacin - Pending 05/22/21 10:45 Body Fluid - Not Known AFB Susceptibility Clarithromycin - Pending 05/22/21 10:45 Body Fluid - Not Known AFB Susceptibility Ethambutol - Pending 05/22/21 10:45 Body Fluid - Not Known AFB Susceptibility Minocycline - Pending 05/22/21 10:45 Body Fluid - Not Known AFB Susceptibility Rifampin - Pending 05/22/21 10:45 Body Fluid - Not Known AFB Susceptibility Trimethoprim/Sul - Pending 05/22/21 10:45 Body Fluid - Not Known Mycobacterium Identification - Pending 05/22/21 10:45 Body Fluid - Not Known AFB Susceptibility Amikacin - Pending 05/22/21 10:45 Body Fluid - Not Known AFB Susceptibility Amoxicillin/CA - Pending 05/22/21 10:45 Body Fluid - Not Known AFB Susceptibility Ceftriaxone - Pend ing 05/22/21 10:45 Body Fluid - Not Known AFB Susceptibility Ciprofloxacin - Pending 05/22/21 10:45 Body Fluid - Not Known AFB Susceptibility Clarithromycin - Pending 05/22/21 10:45 Body Fluid - Not Known AFB Susceptibility Doxycycline - Pending 05/22/21 10:45 Body Fluid - Not Known AFB Susceptibility Imipenem - Pending 05/22/21 10:45 Body Fluid - Not Known AFB Susceptibility Linezolid - Pending 05/22/21 10:45 Body Fluid - Not Known AFB Susceptibility Minocycline - Pending 05/22/21 10:45 Body Fluid - Not Known AFB Susceptibility Moxifloxacin - Pending 05/22/21 10:45 Body Fluid - Not Known AFB Susceptibility Tobramycin - Pending 05/22/21 10:45 Body Fluid - Not Known AFB Susceptibility Trimethoprim/Sul - Pending 05/22/21 10:45 Body Fluid - Not Known Mycobacterium Identification - Pending 05/22/21 10:45 Body Fluid - Not Known AFB Susceptibility Note - Pending 05/22/21 10:45 Body Fluid - Not Known AFB Susceptibility Amikacin - Pending 05/22/21 10:45 Body Fluid - Not Known AFB Susceptibility Cefoxitin - Pending 05/22/21 10:45 Body Fluid - Not Known AFB Susceptibility Ciprofloxacin - Pending 05/22/21 10:45 Body Fluid - Not Known AFB Susceptibility Clarithromycin - Pending 05/22/21 10:45 Body Fluid - Not Known AFB Susceptibility Doxycycline - Pending 05/22/21 10:45 Body Fluid - Not Known AFB Susceptibility Imipenem - Pending 05/22/21 10:45 Body Fluid - Not Known AFB Susceptibility Linezolid - Pending 05/22/21 10:45 Body Fluid - Not Known AFB Susceptibility Minocycline - Pending 05/22/21 10:45 Body Fluid - Not Known AFB Susceptibility Moxifloxacin - Pending 05/22/21 10:45 Body Fluid - Not Known AFB Susceptibility Tigecycline - Pending 05/22/21 10:45 Body Fluid - Not Known AFB Susceptibility Tobramycin - Pending 05/22/21 10:45 Body Fluid - Not Known AFB Susceptibility Trimethoprim/Sul - Pending 05/22/21 10:45 Body Fluid - Not Known Organism Identification - Pending 05/22/21 10:45 Body Fluid - Not Known Nocardia ID - Pending 05/22/21 10:45 Body Fluid - Not Known Organism ID (Sequencing) - Pending 05/22/21 10:45 Body Fluid - Not Known Nocardia, ID by Sequencing - Pending 05/22/21 10:45 Body Fluid - Not Known Organism Identification 1 - Pending 05/22/21 10:45 Body Fluid - Not Known Mycobacterium Identification - Pending 05/22/21 10:45 Body Fluid - Not Known Mycobacteria, ID by Sequencing - Pending 05/22/21 10:45 Body Fluid - Not Known Organism Identification 2 - Pending Laboratory Results (Last 24 hours) 05/23/21 05/23/21 05/22/21 08:20 08:20 11:30 WBC 12.3 H Corrected WBC (auto) 10.2 RBC 3.57 L Hgb 10.1 L Hct 33.9 L MCV 95.0 MCH 28.3 MCHC 29.8 L RDW 16.7 H Plt Count 134 L MPV 10.1 Absolute Granulocytes 9.1 H Segmented Neutrophils 72 H Band Neutrophils 2 Lymphocytes (Manual) 12 L Monocytes (Manual) 10 Eosinophils (Manual) 1 Basophils (Manual) 1 Metamyelocytes 2 Nucleated RBCs 21 Hypochromia 1+ Platelet Estimate NORMAL RBC Morphology ABNORMAL Poikilocytosis 1+ Sodium 140 Potassium 4.3 Chloride 94 L Carbon Dioxide 37 H Anion Gap 13.3 BUN 44 H Creatinine 1.61 H Estimated GFR 44.2 Glucose 94 Calcium 8.7 Total Bilirubin 0.90 AST 36 ALT 56 H Alkaline Phosphatase 97 Serum Total Protein 6.8 Albumin 3.7 Fluid Albumin 1.7 Fluid LDH 175 Orders (Last 24 hours) Category Date Time Status THORACENTESIS [US] Routine Exams 05/22/21 12:17 Completed CBC W DIFF Routine Lab 05/23/21 08:20 Completed CMP Routine Lab 05/23/21 08:20 Completed Manual Differential NC Routine Lab 05/23/21 08:20 Completed Enoxaparin Sodium [Enoxaparin Sodium] Med 05/22/21 22:00 Active 90 mg SQ BID Levofloxacin [Levofloxacin 250MG Tablet] Med 05/24/21 10:00 Ordered 500 mg PO DAILY Patient Care Notes (Last 24 hours) 05/23/21 09:57 Case Management Note by Anca Flores S/W PATIENT THIS AM- HE REPORTS HE IS FEELIG MUCH BETTER. HE DENIES ANY NEW NEEDS AT TIME OF DC. HE LIVES WITH HIS EX AND HAS [facility]. HE PLANS TO RETURN HOME TO HIS PRIOR LEVEL OF FUNCTIONING AT TIME OF DC. PATIENT REPORTS HIS AIR CONDITIONER AT HOME IS BROKE DOWN- THEY ARE WORKING ON GETTING IT FIXED TODAY Initialized on 05/23/21 09:57 - END OF NOTE Code(s): J18.9 - PNEUMONIA, UNSPECIFIED ORGANISM; J91.8 - PLEURAL EFFUSION IN OTHER CONDITIONS CLASSIFIED ELSEWHERE (2) Right lower lobe pneumonia Current Visit: Yes Status: Acute Qualifiers: Pneumonia type: due to Pseudomonas Qualified Code(s): J15.1 - Pneumonia due to Pseudomonas Code(s): J18.9 - PNEUMONIA, UNSPECIFIED ORGANISM (3) Atrial fibrillation Current Visit: Yes Status: Chronic Qualifiers: Atrial fibrillation type: longstanding persistent Qualified Code(s): I48.11 - Longstanding persistent atrial fibrillation Code(s): I48.91 - UNSPECIFIED ATRIAL FIBRILLATION (4) CHF (congestive heart failure) Current Visit: Yes Status: Chronic Qualifiers: Heart failure type: combined systolic and diastolic Heart failure chronicity: acute on chronic Qualified Code(s): I50.43 - Acute on chronic combined systolic (congestive) and diastolic (congestive) heart failure Code(s): I50.9 - HEART FAILURE, UNSPECIFIED (5) COPD (chronic obstructive pulmonary disease) Current Visit: No Status: Chronic Qualifiers: COPD type: COPD with acute exacerbation Qualified Code(s): J44.1 - Chronic obstructive pulmonary disease with (acute) exacerbation
[2021-05-23] MEDS: FEOSOL 325 MG PO SCH (21:17)
[2021-05-23] MEDS: ZOCOR 20MG PO SCH (21:17)
[2021-05-23] MEDS: MAG-OX 400 PO SCH (21:17)
[2021-05-24] MEDS: DUONEB 0.5-3 MG/3 ml Neb IH SCH ×4 (00:37→18:55)
[2021-05-24] MEDS: ENTRESTO 49 MG-51 MG TABLET PO SCH ×2 (09:41→21:40)
[2021-05-24] MEDS: Colace 100 MG PO SCH ×2 (09:42→21:40)
[2021-05-24] MEDS: Cordarone 200 MG PO SCH (09:42)
[2021-05-24] MEDS: Levofloxacin 250MG Tablet PO SCH (09:42)
[2021-05-24] MEDS: Klor Con 10 MEQ PO SCH ×2 (09:42→21:40)
[2021-05-24] MEDS: DELTASONE 10 MG PO SCH (09:42)
[2021-05-24] MEDS: Pepcid 20 MG PO SCH ×2 (09:43→21:41)
[2021-05-24] MEDS: THERAGRAN MULTIVITAMIN PO SCH (09:43)
[2021-05-24] MEDS: Toprol-Xl 25MG Tablets PO SCH (09:43)
[2021-05-24] MEDS: Lasix 40 MG/4 ML IV SCH (09:43)
[2021-05-24 09:47] LABS: ALBUMIN 3.6 g/dL (3.5-5.0); BILIRUBIN,TOTAL 0.8 mg/dL (0.2-1.3); Calcium 8.9 mg/dL (8.4-10.2); Creatinine 1 1.63 mg/dL (0.66-1.25); EST GLOMERULAR FILTRATION RATE 43.6 ML/MIN; INR 1.19 (0.8-3.0); Potassium 4.4 mmol/L (3.5-5.1); Total Protein 6.7 g/dL (6.3-8.2)
[2021-05-24 09:55] LABS: ANION GAP 11.4 MEQ/L (5-15)
[2021-05-24 11:20] LABS: Hematocrit 33.5 % (42-50); Mean Cell Volume 94.4 fl (78-100); Mean Corpuscular Hemoglobin 28.2 pg (26-32); Mean Corpuscular Hgb Concent. 29.9 g/dl (32-36); Platelet Count 161 K/mm3 (150-450); Red Blood Count 3.55 M/mm3 (4.1-5.6); Red Cell Distribution Width 16.5 % (11.5-14.0); White Blood Count 13.4 K/mm3 (4.0-10.5)
--- NOTE | 2021-05-24 14:09 | PCM.NOTE ---
Date and Time: 05/24/21 9169 Subjective Assessment: Patient has been having blood from both nostrils ,spitting clots from back of throat throught the night and this morning. He is on Lovenox 90 bid and this mornings dose was held. He has a prosthetic heart valve and arrhythmia. C/O fatigue ,prefers to lay in bed . Did not want to get up in chair or walk with staff. Appetite is ok. Breathing has improved since thoracentesis, a liter of fluid was removed . Objective Exam General Appearance: mild distress (coughed a TBSP of clot from back of throat.) Neurologic Exam: alert, oriented x 3, cooperative Skin Exam: normal color, warm, dry Respiratory Exam: diminished breath sounds, prolonged expirations, wheezing (eew bases) Cardiovascular Exam: murmur, irregular Gastrointestinal/Abdomen Exam: soft, normal bowel sounds (nontender) Extremity Exam: other (no edema) OBJECTIVE DATA Vital Signs: Vital Signs - 24 hr Temp Pulse Resp BP Pulse Ox 05/24/21 13:09 74 22 96 05/24/21 12:00 98.8 F 91 H 23 95/43 97 05/24/21 08:00 98.4 F 80 23 125/58 95 05/24/21 06:55 84 22 94 L 05/24/21 03:50 98.2 F 61 18 98/46 97 05/24/21 00:38 65 20 92 L 05/23/21 23:38 98.3 F 64 20 100/49 94 L 05/23/21 19:09 98.0 F 69 20 95/55 97 05/23/21 18:47 64 20 96 05/23/21 18:46 96 05/23/21 16:00 97.6 F 56 L 12 99/55 96 Pain Assessment - Last Documented Pain Intensity 0 Intake and Output: Intake & Output 05/22/21 05/23/21 05/24/21 05/25/21 11:59 11:59 11:59 11:59 Intake Total 1275 2180 1120 240 Output Total 2150 2300 2675 Balance -979 -957 -2572 866 Weight 90.9 kg 91.5 kg 87.3 kg Lab Results: Lab Results-Last 24 Hours 05/24/21 05/24/21 05/24/21 Range/Units 09:17 09:17 09:17 WBC 13.4 H (4.0-10.5) K/mm3 RBC 3.55 L (4.1-5.6) M/mm3 Hgb 10.0 L (12.5-18.0) gm/dl Hct 33.5 L (42-50) % MCV 94.4 (78-100) fl MCH 28.2 (26-32) pg MCHC 29.9 L (32-36) g/dl RDW 16.5 H (11.5-14.0) % Plt Count 161 (150-450) K/mm3 MPV 11.0 (7.5-11.0) fl PT 14.0 H (9.4-12.5) SECONDS INR 1.19 (0.8-3.0) Sodium 135 L (137-145) mmol/L Potassium 4.4 (3.5-5.1) mmol/L Chloride 90 L (98-107) mmol/L Carbon Dioxide 38 H (22-30) mmol/L Anion Gap 11.4 (5-15) MEQ/L BUN 41 H (9-20) mg/dL Creatinine 1.63 H (0.66-1.25) mg/dL Estimated GFR 43.6 ML/MIN Glucose 121 H (74-106) mg/dL Calcium 8.9 (8.4-10.2) mg/dL Total Bilirubin 0.80 (0.2-1.3) mg/dL AST 34 (17-59) U/L ALT 50 (0-50) U/L Alkaline Phosphatase 88 (38-126) U/L NT-Pro-B Natriuret Pep 2270 H (0-1800) pg/mL Serum Total Protein 6.7 (6.3-8.2) g/dL Albumin 3.6 (3.5-5.0) g/dL Multi-Disciplinary Progress Notes: Multi-Disciplinary Progress Notes 05/23/21 14:50 Nutrition Note by Melissa Quiros F/u Note: Heart healthy diet con't with 100% po intake. adm weight 90.2kg;current weight 91.5kg. Labs 05/23= BUN 44, Cr 1.61, alb wnl, hgb 10.1, hct 33.9. goal of po intake >=75% met and ongoing. Will con't to monitor and f/u prn. MARY Robbins Initialized on 05/23/21 14:50 - END OF NOTE Assessment/Plan (1) Right lower lobe pneumonia Current Visit: Yes Status: Acute Qualifiers: Pneumonia type: due to Pseudomonas Qualified Code(s): J15.1 - Pneumonia due to Pseudomonas Assessment & Plan: clinically improved Code(s): J18.9 - PNEUMONIA, UNSPECIFIED ORGANISM (2) CHF (congestive heart failure) Current Visit: Yes Status: Chronic Qualifiers: Heart failure type: combined systolic and diastolic Heart failure chronicity: acute on chronic Qualified Code(s): I50.43 - Acute on chronic combined systolic (congestive) and diastolic (congestive) heart failure Assessment & Plan: BNP now 2270,was 3700 on admission. B/P 90s/60s. Stopped IV lasix and resarted oral . Code(s): I50.9 - HEART FAILURE, UNSPECIFIED (3) Epistaxis Current Visit: Yes Status: Acute Assessment & Plan: held Lovenox and will restart Coumadin dose tomorrow. See serial PT/INR,PTT. Code(s): R04.0 - EPISTAXIS (4) Fatigue Current Visit: Yes Status: Acute Qualifiers: Fatigue type: unspecified Qualified Code(s): R53.83 - Other fatigue Assessment & Plan: B/P 90/60.Hgb is stable since adm at 10.5-10.0. monitor . Code(s): R53.83 - OTHER FATIGUE
[2021-05-24 14:10] LABS: BAND 1 % (0.0-2.0); Basophil 1 % (0.0-1.0); Eosinophil 3 % (0.00-3.0); Lymphocytes 9 % (24-44); Monocyte 6 % (0.0-12.0); Neutrophils 80 % (36.-66.); Platelet Estimate NORMAL (NORMAL); Total Cells Counted 100
[2021-05-24] MEDS: LASIX 20 MG PO SCH (17:21)
[2021-05-24] MEDS: FEOSOL 325 MG PO SCH (21:40)
[2021-05-24] MEDS: MAG-OX 400 PO SCH (21:41)
[2021-05-24] MEDS: ZOCOR 20MG PO SCH (21:41)
[2021-05-25] MEDS: DUONEB 0.5-3 MG/3 ml Neb IH SCH ×4 (00:08→19:12)
[2021-05-25] MEDS ORDERED: TYLENOL EXTRA STRENGTH 500 MG PO PRN (09:03)
[2021-05-25] MEDS ORDERED: Mucinex 600MG ER Tabs PO ONE (09:07)
[2021-05-25] MEDS: Levofloxacin 250MG Tablet PO SCH (11:06)
[2021-05-25] MEDS: THERAGRAN MULTIVITAMIN PO SCH (11:06)
[2021-05-25] MEDS: Pepcid 20 MG PO SCH ×2 (11:06→21:34)
[2021-05-25] MEDS: ENTRESTO 49 MG-51 MG TABLET PO SCH ×2 (11:06→21:33)
[2021-05-25] MEDS: Colace 100 MG PO SCH ×2 (11:07→21:32)
[2021-05-25] MEDS: Klor Con 10 MEQ PO SCH ×2 (11:07→21:33)
[2021-05-25] MEDS: DELTASONE 10 MG PO SCH (11:07)
[2021-05-25] MEDS: Cordarone 200 MG PO SCH (11:07)
[2021-05-25] MEDS: LASIX 20 MG PO SCH (16:44)
[2021-05-25] MEDS: FEOSOL 325 MG PO SCH (21:33)
[2021-05-25] MEDS: MAG-OX 400 PO SCH (21:34)
[2021-05-25] MEDS: ZOCOR 20MG PO SCH (21:34)
--- NOTE | 2021-05-25 21:59 | PCM.NOTE ---
Date and Time: 05/25/212149 Subjective Assessment: Patient states he had a few clots from the back of his throat earlier but none through the day today. Lovenoox was held yesterday(90 bid) and 1 dose given today at 40mg and he will restart Coumadin this evening. He has refused to get up even in the chair . Will have PT work with him to build some strength for discharge soon. He is on Levaquin and sputum culture grew Staph Aureus which is sensitive to Levaquin. Objective Exam General Appearance: lethargy Neurologic Exam: alert, oriented x 3, normal mood/affect (mood is pleasant ,laying in bed on his side napping) Skin Exam: normal color, warm, dry Neck Exam: normal inspection Respiratory Exam: diminished breath sounds (mid right,no wheeze or rales or ronchi) Cardiovascular Exam: murmur, irregular, other (no pittingedema) Gastrointestinal/Abdomen Exam: soft (nontender) OBJECTIVE DATA Vital Signs: Vital Signs - 24 hr Temp Pulse Resp BP Pulse Ox 05/25/21 20:15 97.8 F 87 20 155/55 95 05/25/21 19:14 67 18 96 05/25/21 16:00 97.7 F 71 22 120/68 94 L 05/25/21 12:52 60 20 98 05/25/21 11:54 97.9 F 62 23 125/57 95 05/25/21 08:00 98.4 F 73 20 89/41 93 L 05/25/21 05:11 64 22 92 L 05/25/21 03:54 98.3 F 67 20 104/53 97 05/25/21 00:09 71 20 94 L 05/24/21 23:31 98.2 F 67 20 114/54 96 Pain Assessment - Last Documented Pain Intensity 0 Intake and Output: Intake & Output 05/23/21 05/24/21 05/25/21 05/26/21 11:59 11:59 11:59 11:59 Intake Total 2180 1120 3040 1700 Output Total 2300 2675 2400 2125 Balance -120 -4008 337 -813 Weight 91.5 kg 87.3 kg 88.1 kg Assessment/Plan (1) Right lower lobe pneumonia Current Visit: Yes Status: Acute Qualifiers: Pneumonia type: due to methicillin-sensitive Staphylococcus aureus (MSSA) Qualified Code(s): J15.211 - Pneumonia due to Methicillin susceptible Staphylococcus aureus Code(s): J18.9 - PNEUMONIA, UNSPECIFIED ORGANISM (2) CHF (congestive heart failure) Current Visit: Yes Status: Chronic Qualifiers: Heart failure type: combined systolic and diastolic Heart failure chronicity: acute on chronic Qualified Code(s): I50.43 - Acute on chronic combined systolic (congestive) and diastolic (congestive) heart failure Code(s): I50.9 - HEART FAILURE, UNSPECIFIED (3) Epistaxis Current Visit: Yes Status: Resolved Code(s): R04.0 - EPISTAXIS (4) Fatigue Current Visit: Yes Status: Acute Assessment & Plan: BNP improved Code(s): R53.83 - OTHER FATIGUE
[2021-05-25] MEDS ORDERED: Coumadin 1 MG PO SCH (22:00)
[2021-05-26] MEDS: DUONEB 0.5-3 MG/3 ml Neb IH SCH ×3 (01:30→13:47)
[2021-05-26 05:24] LABS: INR 1.15 (0.8-3.0); PROTIME 13.6 SECONDS (9.4-12.5)
[2021-05-26] MEDS: THERAGRAN MULTIVITAMIN PO SCH (09:12)
[2021-05-26] MEDS: Pepcid 20 MG PO SCH (09:12)
[2021-05-26] MEDS: Klor Con 10 MEQ PO SCH (09:12)
[2021-05-26] MEDS: LASIX 20 MG PO SCH (09:12)
[2021-05-26] MEDS: ENTRESTO 49 MG-51 MG TABLET PO SCH (09:12)
[2021-05-26] MEDS: Colace 100 MG PO SCH (09:12)
[2021-05-26] MEDS: Cordarone 200 MG PO SCH (09:12)
[2021-05-26] MEDS: DELTASONE 10 MG PO SCH (09:13)
[2021-05-26] MEDS ORDERED: Levofloxacin 500 MG Tablet PO SCH (10:00)
[2021-05-26] MEDS: Toprol-Xl 25MG Tablets PO SCH (10:58)
[2021-05-26 11:45] VITALS: BP 130/76
[2021-05-26 13:51] VITALS: PULSE 78; O2SAT 95
--- NOTE | 2021-05-26 18:07 | PCM.DS ---
Discharge Summary Date of Admission: 05/17/21 16:43 Admitting Physician: SKYLAR BLEVINS Consults: Consults on Case 05/21/21 14:10 Consult Surgery ROUTINE Primary Care Provider: SKYLAR BLEVINS Allergies Allergies No Known Drug Allergies Allergy (Verified 01/10/21 10:55) Hospital Summary - Hospital Course Hospital Course: Chief Complaint Diagnosis CHF, PNEUMONIA Allergies Allergy/AdvReac Type Severity Reaction Status Date / Time No Known Drug Allergies Allergy Verified 01/10/21 10:55 Vital Signs (Last 24 hours) Temp Pulse Resp BP Pulse Ox 05/26/21 13:48 78 18 95 05/26/21 11:44 98.0 F 73 16 130/76 97 05/26/21 07:57 97.9 F 65 16 111/51 97 05/26/21 07:08 70 18 96 05/26/21 04:00 98.1 F 66 24 99/55 94 L 05/26/21 01:30 75 18 97 05/26/21 00:00 98.0 F 62 18 88/48 98 05/25/21 20:15 97.8 F 87 20 155/55 95 05/25/21 19:14 67 18 96 Home Medications Medication Instructions Recorded Confirmed Last Taken Type Multivitamin [Daily Multivitamin] 1 tab PO DAILY 05/17/21 05/17/21 05/16/21 History Prednisone 10 mg [Deltasone 10 10 mg PO DAILY 05/17/21 05/17/21 05/16/21 History mg] Warfarin Sodium 5 mg [Coumadin 4 mg PO HS 05/17/21 05/17/21 05/16/21 History 5 MG] Levofloxacin [Levaquin] 500 mg PO DAILY 5 Days #5 tablet 05/26/21 Unknown Rx Current Medications Discontinued Medications Generic Name Dose Route Start Last Admin Trade Name Freq PRN Reason Stop Dose Admin Acetaminophen 500 mg 05/25/21 09:03 05/25/21 09:18 Tylenol Extra Strength 500 Mg PO 06/24/21 09:02 500 mg Q4HPRN PRN Administration PAIN AND/OR FEVER Albuterol/Ipratropium 3 ml 05/17/21 13:15 05/17/21 13:48 Duoneb 0.5-3 Mg/3 Ml Neb IH 05/17/21 13:16 3 ml STAT ONE Administration Albuterol/Ipratropium Confirm 05/17/21 13:54 Duoneb 0.5-3 Mg/3 Ml Neb Administered 05/17/21 13:55 Dose 3 ml IH .STK-MED ONE Albuterol/Ipratropium 3 ml 05/17/21 19:00 05/26/21 13:47 Duoneb 0.5-3 Mg/3 Ml Neb IH 06/16/21 18:59 3 ml Q6HRT TREVOR Administration Albuterol/Ipratropium 3 ml 05/17/21 18:19 Duoneb 0.5-3 Mg/3 Ml Neb IH 06/16/21 18:18 Q4HPRN PRN SHORTNESS OF BREATH/WHEEZING Amiodarone HCl 200 mg 05/18/21 10:00 05/26/21 09:12 Cordarone 200 Mg PO 06/17/21 09:59 200 mg DAILY TREVOR Administration Budesonide 0.5 mg 05/17/21 22:00 Pulmicort 0.5 Mg/2 Ml Respules IH 06/16/21 21:59 BID TREVOR Docusate Sodium 100 mg 05/17/21 22:00 05/26/21 09:12 Colace 100 Mg PO 06/16/21 21:59 100 mg BID TREVOR Administration Enoxaparin Sodium 90 mg 05/22/21 22:00 05/23/21 21:16 Enoxaparin Sodium SQ 06/21/21 21:59 90 mg BID TREVOR Administration Famotidine 20 mg 05/17/21 22:00 05/26/21 09:12 Pepcid 20 Mg PO 06/16/21 21:59 20 mg BID TREVOR Administration Famotidine 20 mg 05/18/21 10:00 Pepcid 20 Mg PO 06/17/21 09:59 BID TREVOR Ferrous Sulfate 325 mg 05/17/21 22:00 05/25/21 21:33 Feosol 325 Mg PO 06/16/21 21:59 325 mg HS TREVOR Administration Furosemide 40 mg 05/18/21 10:00 05/21/21 11:19 Lasix 40 Mg PO 06/17/21 09:59 40 mg BID DIURETIC TREVOR Administration Furosemide 40 mg 05/21/21 17:00 05/24/21 09:43 Lasix 40 Mg/4 Ml IV 06/20/21 16:59 40 mg BID DIURETIC TREVOR Administration Furosemide 40 mg 05/24/21 17:00 05/26/21 09:12 Lasix 20 Mg PO 06/23/21 16:59 40 mg BID DIURETIC TREVOR Administration Guaifenesin 600 mg 05/25/21 09:07 05/25/21 09:18 Mucinex 600mg Er Tabs PO 05/25/21 09:08 600 mg ONCE ONE Administration Sodium Chloride 1,000 mls @ 50 mls/hr 05/17/21 13:15 05/17/21 13:21 Sodium Chloride 0.9% 1000 Ml IV 06/16/21 13:14 50 mls/hr .Q20H TREVOR Administration Ceftriaxone Sodium/Dextrose 1 g in 50 mls @ 100 mls/hr 05/17/21 14:27 05/17/21 15:09 Rocephin 1 Gm-D5w 50 Ml Bag IV 05/17/21 14:56 Infused STAT STA Infusion Azithromycin 500 mg in 250 mls @ 250 mls/hr 05/17/21 14:27 05/17/21 16:31 Zithromax 500 Mg/ 250 Ml Nacl Premix IV 05/17/21 15:26 Infused STAT STA Infusion Ceftriaxone Sodium/Dextrose Confirm 05/17/21 14:33 Rocephin 1 Gm-D5w 50 Ml Bag Administered 05/17/21 14:34 Dose 1 g in 50 mls @ ud IV .STK-MED ONE Azithromycin Confirm 05/17/21 15:13 Zithromax 500 Mg/ 250 Ml Nacl Premix Administered 05/17/21 15:14 Dose 500 mg in 250 mls @ ud IV .STK-MED ONE Sodium Chloride Confirm 05/17/21 13:18 Sodium Chloride 0.9% 1000 Ml Administered 05/17/21 13:19 Dose 1,000 mls @ ud .ROUTE .STK-MED ONE Ceftriaxone Sodium/Dextrose 1 g in 50 mls @ 100 mls/hr 05/18/21 10:00 05/23/21 09:07 Rocephin 1 Gm-D5w 50 Ml Bag IV 05/24/21 09:59 100 mls/hr Q24H10 TREVOR Administration Azithromycin 500 mg in 250 mls @ 125 mls/hr 05/18/21 10:00 05/23/21 09:46 Zithromax 500 Mg/ 250 Ml Nacl Premix IV 06/17/21 09:59 125 mls/hr DAILY TREVOR Administration Levofloxacin 500 mg 05/24/21 10:00 05/25/21 11:06 Levofloxacin 250mg Tablet PO 06/23/21 09:59 500 mg DAILY TREVOR Administration Levofloxacin 500 mg 05/26/21 10:00 05/26/21 09:12 Levofloxacin 500 Mg Tablet PO 06/25/21 09:59 500 mg DAILY TREVOR Administration Magnesium Oxide 400 mg 05/18/21 22:00 05/25/21 21:34 Mag-Ox 400 PO 06/17/21 21:59 400 mg HS TREVOR Administration Metoprolol Succinate 25 mg 05/18/21 10:00 05/26/21 10:58 Toprol-Xl 25mg Tablets PO 06/17/21 09:59 25 mg DAILY TREVOR Administration Metoprolol Succinate 25 mg 05/18/21 10:00 Toprol Xl 50 Mg PO 06/17/21 09:59 DAILY TREVOR Multivitamins Therapeutic 1 tab 05/18/21 10:00 05/26/21 09:12 Theragran Multivitamin PO 06/17/21 09:59 1 tab DAILY TREVOR Administration Non-Formulary Medication 20 meq 05/18/21 10:00 Potassium Chloride [K-Dur] PO 06/17/21 09:59 BID TREOVR Non-Formulary Medication 20 mg 05/18/21 22:00 Pravastatin Sodium [Pravachol] PO 06/17/21 21:59 HS TREVOR Non-Formulary Medication 1 each 05/21/21 17:06 05/22/21 17:40 Pharmacy Dosing Request MC 05/21/21 17:07 1 each STAT ONE Administration Patient Own Medication 2 each 05/17/21 19:00 05/22/21 06:35 Patient Own Medication IH 06/16/21 18:59 2 each BIDRT TREVOR Administration Phytonadione 10 mg 05/21/21 17:00 05/21/21 17:35 Vitamin K 10 Mg/Ml PO 05/21/21 17:01 10 mg STAT ONE Administration Potassium Chloride 20 meq 05/17/21 22:00 05/26/21 09:12 Klor Con 10 Meq PO 06/16/21 21:59 20 meq BID TREVOR Administration Prednisone 10 mg 05/18/21 10:00 05/26/21 09:13 Deltasone 10 Mg PO 06/17/21 09:59 10 mg DAILY TREVOR Administration Sacubitril/Valsartan 0.5 tablet 05/18/21 02:45 05/18/21 20:44 Entresto 49 Mg-51 Mg Tablet PO 05/18/21 02:46 Not Given NOW ONE Sacubitril/Valsartan 0.5 tablet 05/18/21 10:00 05/26/21 09:12 Entresto 49 Mg-51 Mg Tablet PO 06/17/21 09:59 0.5 tablet BID TREVOR Administration Simvastatin 20 mg 05/17/21 22:00 05/25/21 21:34 Zocor 20mg PO 06/16/21 21:59 20 mg HS TREVOR Administration Sterile Water Confirm 05/20/21 16:22 Sterile H2o 10 Ml Administered 05/20/21 16:23 Dose 10 ml IJ .STK-MED ONE Warfarin Sodium 4 mg 05/18/21 18:00 05/20/21 16:15 Coumadin 1 Mg PO 06/17/21 17:59 4 mg DAILY@1800 TREVOR Administration Warfarin Sodium 4 mg 05/25/21 22:00 05/25/21 21:32 Coumadin 1 Mg PO 06/24/21 21:59 4 mg HS TREVOR Administration Intake & Output (Last 24 hours) 05/24/21 05/25/21 05/26/21 05/27/21 11:59 11:59 11:59 11:59 Intake Total 1120 3040 2680 380 Output Total 2675 2400 3725 950 Balance -9244 939 -1042 -477 Weight 87.3 kg 88.1 kg 87.8 kg Microbiology Results (Last 24 hours) 05/22/21 11:30 Thoracic Fluid Aerobic Culture - Pending 05/22/21 11:30 Thoracic Fluid Anaerobic Culture - Pending Laboratory Results (Last 24 hours) 05/26/21 05/26/21 05/22/21 04:50 04:50 11:30 PT 13.6 H INR 1.15 APTT 28.0 Fluid pH 7.8 Orders (Last 24 hours) Category Date Time Status Discharge Routine Discharge 05/26/21 Ordered PT INR [PROTIME WITH INR] AM.LAB Lab 05/26/21 04:50 Completed PTT AM.LAB Lab 05/26/21 04:50 Completed Levofloxacin [Levofloxacin 500 MG Tablet] Med 05/26/21 10:00 Discontinued 500 mg PO DAILY Warfarin Sodium 1 mg [Coumadin 1 MG] Med 05/25/21 22:00 Discontinued 4 mg PO HS PT Eval & Treat ( Order) 1-3XD PT 05/26/21 22:13 Completed Patient Care Notes (Last 24 hours) 05/26/21 15:14 Nursing Note by Vivian Cherry FAXED DISCHARGE RECORDS TO [facility] 05/26/21 @ SANJANA Benoit Initialized on 05/26/21 15:14 - END OF NOTE 05/26/21 11:51 Case Management Note by Anca Flores PATIENT CONTINUES TO DENY ANY NEW NEEDS REGARDING DC AT THIS TIME. HE PLANS TO RETURN TO HIS EX WIFES AT TIME OF DC. HE REPORTS THE AIR CONDITIONER IS FIXED. HE ALREADY HAS HHC AND HOME OXYGEN AT HOME. Initialized on 05/26/21 11:51 - END OF NOTE 05/26/21 09:15 Nursing Note by Lily Ramírez DISCUSSED MEDICATIONS WITH PATIENT HOME VS. HOSPITAL. PT IS AWARE OF MEDICATIONS AT HOME, HE STATES HE KNOWS GENERALLY THE MEDICATIONS HE TAKES, BUT IS NOT ALWAYS SURE OF THE DOSAGES. Initialized on 05/26/21 09:15 - END OF NOTE - Vitals & Intake/Output Vital Signs: Vital Signs Temperature 98.0 F 05/26/21 11:44 Pulse Rate 78 05/26/21 13:48 Respiratory Rate 18 05/26/21 13:48 Blood Pressure 130/76 05/26/21 11:44 O2 Sat by Pulse Oximetry 95 05/26/21 13:48 Intake & Output: Intake & Output 05/24/21 05/25/21 05/26/21 05/27/21 11:59 11:59 11:59 11:59 Intake Total 1120 3040 2680 380 Output Total 2675 2400 3725 950 Balance -6717 184 -1049 -023 Weight 87.3 kg 88.1 kg 87.8 kg - Lab Result Diagrams: 05/24/21 09:17 05/24/21 09:17 Lab Results-Last 24 Hrs: Lab Results-Last 24 Hours 05/22/21 05/26/21 05/26/21 Range/Units 11:30 04:50 04:50 PT 13.6 H (9.4-12.5) SECONDS INR 1.15 (0.8-3.0) APTT 28.0 (25.1-36.5) SECONDS Fluid pH 7.8 (Not Estab.) Micro Results-Entire Visit: Microbiology 05/22/21 10:45 Nocardia, ID by Sequencing - Final Body Fluid - Not Known Not Reportable Organism Identification 1 - Final Not Reportable Mycobacterium Identification - Final Not Reportable Mycobacteria, ID by Sequencing - Final Not Reportable Organism Identification 2 - Final Not Reportable 05/17/21 13:46 Blood Culture Gram Stain - Final Blood Not Reportable Blood Culture - Final NO GROWTH 05/17/21 13:40 Blood Culture Gram Stain - Final Blood Not Reportable Blood Culture - Final NO GROWTH 05/17/21 14:30 Gram Stain - Final Sputum - Expectorant Sputum Culture - Final Staphylococcus Aureus 05/17/21 17:24 Urine Culture - Final Urine, Void <10K NORMAL SKIN MOY PROBABLE SKIN CONTAMINANT - Procedures and Test Procedures and Tests throughout Hospitalization: Therapy Orders & Screens 05/17/21 13:49 Respiratory Therapy Assessment DAILY Comment: 05/17/21 16:51 Oxygen Nasal Cannula 3 lpm Comment: Respiratory Therapy Consult ROUTINE Comment: Reason For Exam: Respiratory Therapy Consult ROUTINE Comment: Reason For Exam: Diagnosis: Pneumonia 05/17/21 19:00 Respiratory MDI BID Comment: SAUDZTRI 2 PUFFS BID Diagnosis: CHF 05/17/21 19:26 Respiratory Therapy Assessment DAILY Comment: Diagnosis: CHF 05/18/21 09:45 FLUTTER [Flutter Therapy] UD Comment: Diagnosis: CHF 05/20/21 13:54 RT Miscellaneous Order ROUTINE Comment: Physician Instructions: PERCUSSION, AND INCENTIVE SPIROMETRY Reason For Exam: PNEUMONIA, CHF Diagnosis: CHF, PNEUMONIA 05/20/21 19:00 Incentive Spirometry Q6H Comment: Diagnosis: CHF, PNEUMONIA 05/26/21 22:13 PT Eval & Treat (MD Order) 1-3XD Reason for Eval:: needs to ambulate safely before he can be discharged. Refused to get uo over the weekend,was having nose bleeds. Diagnosis: CHF, PNEUMONIA Discharge Exam General Appearance: no apparent distress, alert Neurologic Exam: alert, oriented x 3, cooperative, normal mood/affect, nml cerebellar function, sensation nml, No motor deficits Eye Exam: PERRL, EOMI, eyes nml inspection Ears, Nose, Throat Exam: normal ENT inspection, pharynx normal, moist mucous membranes Neck Exam: normal inspection, non-tender, supple, full range of motion Respiratory Exam: normal breath sounds, diminished breath sounds, crackles/rales, rhonchi, wheezing, No respiratory distress Cardiovascular Exam: regular rate/rhythm, normal heart sounds Gastrointestinal/Abdomen Exam: soft, No tenderness, No mass Male Genitalia Exam: deferred Rectal Exam: deferred Back Exam: normal inspection, normal range of motion, No CVA tenderness, No vertebral tenderness Extremity Exam: normal inspection, normal range of motion Skin Exam: normal color, warm, dry Final Diagnosis/Problem List - Final Discharge Diagnosis/Problem (1) Parapneumonic effusion Status: Resolved Code(s): J18.9 - PNEUMONIA, UNSPECIFIED ORGANISM; J91.8 - PLEURAL EFFUSION IN OTHER CONDITIONS CLASSIFIED ELSEWHERE (2) Right lower lobe pneumonia Status: Resolved Code(s): J18.9 - PNEUMONIA, UNSPECIFIED ORGANISM (3) Atrial fibrillation Status: Chronic Code(s): I48.91 - UNSPECIFIED ATRIAL FIBRILLATION (4) CHF (congestive heart failure) Status: Chronic Priority: High Code(s): I50.9 - HEART FAILURE, UNSPECIFIED (5) COPD (chronic obstructive pulmonary disease) Status: Chronic - Discharge Discharge Date: 05/26/21 Disposition: Home, Self-Care Condition: Stable Prescriptions: New Levofloxacin [Levaquin] 500 mg PO DAILY 5 Days #5 tablet Continue Pravastatin Sodium [Pravachol] 20 mg PO HS Budesonide/Formoterol Fumarate [Symbicort 160-4.5 Mcg Inhaler] 2 puffs IH BID Ferrous Sulfate 325 mg PO HS Furosemide 40 mg [Lasix 40 MG] 40 mg PO BID Potassium Chloride [K-Dur] 20 meq PO BID Metoprolol Succinate 50 mg [Toprol Xl 50 MG] 25 mg PO DAILY Sacubitril/Valsartan [Entresto 24 mg-26 mg Tablet] 1 tab PO BID Amiodarone HCl [Pacerone] 200 mg PO DAILY Famotidine 20 mg [Pepcid 20 MG] 20 mg PO BID Albuterol/Ipratropium 3ml Neb* [DUONEB 0.5-3 MG/3 ml Neb] 1 neb IH Q4HPRN PRN PRN Reason: Shortness Of Breath Magnesium Chloride 64 mg [Slow-Mag 64 MG] 64 mg PO HS Docusate Sodium 100 mg [Colace 100 MG] 100 mg PO BID Warfarin Sodium 5 mg [Coumadin 5 MG] 4 mg PO HS Multivitamin [Daily Multivitamin] 1 tab PO DAILY Prednisone 10 mg [Deltasone 10 mg] 10 mg PO DAILY Instructions: Pneumonia, Adult (DC), Going Home on Blood Thinners Follow up with: SKYLAR BLEVINS MD [Primary Care Provider] - 06/05/21 2:45 pm (at [facility] )
== END 2021-05-26 14:28 | disposition home or self-care (01) | DRG 194 ==
LOC: ED 13:02 → OBSVTOIN 16:43 → MED SURG 16:43
PROVIDERS: ADMIT General Practice; ATTEND General Practice
DX: J18.9 Pneumonia, unspecified organism (principal); J91.8 Pleural effusion in other conditions classified elsewhere; J44.1 Chronic obstructive pulmonary disease with (acute) exacerbation; I11.0 Hypertensive heart disease with heart failure; I50.9 Heart failure, unspecified; I48.91 Unspecified atrial fibrillation; Z79.899 Other long term (current) drug therapy; Z79.01 Long term (current) use of anticoagulants; E78.00 Pure hypercholesterolemia, unspecified; Z95.2 Presence of prosthetic heart valve; R04.0 Epistaxis; R53.83 Other fatigue; Z20.822 Contact with and (suspected) exposure to COVID-19
CPT/HCPCS: 32557; 36415; 71045; 71046; 80048; 80053; 81001; 82040; 82042; 83615; 83735; 83880; 83986; 84484; 85025; 85027; 85610; 85730; 87040; 87070; 87075; 87077; 87086; 87116; 87186; 87206; 88112; 93005; 94640; 94667; 94668; 94760; 96365; 96367; 97161; 99285; 99291; U0003; J0456; J0696; J1650; J1940; J3430; A9270-GY